=== PATIENT | female | born 1955 | race Caucasian/White ===

== ENCOUNTER 2016-08-04 05:45 | Day surgery (SDC) | payer BC ==
[2016-08-04] MEDS ORDERED: ceFAZolin 2 GM in Premix Bag 1 BAG IV ONE (06:15)
[2016-08-04] MEDS ORDERED: Dextrose 5%-Lactated Ringers 1,000 ML IV SCH (06:15)
[2016-08-04] MEDS ORDERED: Lidocaine 1% with EPINEPHrine 1:100,000 50 ML MDV ONE (06:42)
[2016-08-04] MEDS ORDERED: Bupivacaine 0.5% 50 ML MDV ONE (06:42)
[2016-08-04] MEDS ORDERED: Midazolam 1 MG/ML 2 ML SDV ONE (06:53)
[2016-08-04] MEDS ORDERED: fentaNYL 100 MCG/2 ML SDV ONE (06:53)
[2016-08-04] MEDS ORDERED: Propofol 200 MG/20 ML SDV ONE (06:53)
[2016-08-04] MEDS ORDERED: Bacitracin Oint 1 GM U/D Packet ONE (07:25)
[2016-08-04 09:51] VITALS: BP 169/84
--- NOTE | 2016-08-06 09:03 | OR ---
DATE OF PROCEDURE: 08/04/2016 PREOPERATIVE DIAGNOSIS: Atypical nevi involving right side of the nose and left buttock. POSTOPERATIVE DIAGNOSIS: Atypical nevi involving right side of the nose and left buttock. OPERATIVE PROCEDURE: 1. Excision of atypical nevus, right cheek with layered closure ([id number], [id number]). 2. Excision of atypical nevus, left buttock with layered closure ( , [id number]). ANESTHESIA: Local plus IV sedation. INDICATIONS FOR PROCEDURE: This 61-year-old female presenting with some atypical nevi involving the right cheek just lateral to the nose along with over the midportion of the left buttock. The plan is to proceed with excision of these. Potential risks of the procedure including bleeding, infection, possible need for additional excision of pathologic findings such as a melanoma was identified were all reviewed, and the patient wishes to proceed. DETAILS OF PROCEDURE: The patient was taken to the operating room and placed initially in a right lateral decubitus position. IV sedation was administered, after which, the area around the left buttock was prepped and draped. A transversely oriented elliptical incision around the lesion was made. The lesion itself measured 2.2 cm and incision length was 4.3 cm. The lesion was removed with some underlying subcutaneous tissue and the incision then closed with some 5-0 Vicryl stitch deep and then 5-0 Prolene skin stitch. Dressing was then applied. The patient now placed into a supine position and the right cheek area was prepped and draped. A transversely oriented elliptical incision in Ralph lines was then made after the area was anesthetized with 1% lidocaine mixed with Marcaine. This lesion measured 1.1 cm and the incision length was 2.2 cm. Upon removal of the lesion, the deeper soft tissue approximated with some 6-0 Vicryl stitch and the skin with 6-0 Prolene stitch. Bacitracin was applied. There were no other complications. The patient was then to the recovery room in satisfactory condition. gJ Farris MD /[id number]
== END 2016-08-04 09:52 | disposition home or self-care (01) ==
LOC: JP.SDS 05:45
PROVIDERS: ATTEND Surgery
DX: D22.5 Melanocytic nevi of trunk (principal); D36.7 Benign neoplasm of other specified sites
CPT/HCPCS: 11403; 11442; 12032; 12051; J0690; J2250; J2704; J3010; J7042; 88305

== ENCOUNTER 2017-11-21 09:40 | Day surgery (SDC) | payer BC ==
[2017-11-21] MEDS ORDERED: Lactated Ringers 1,000 ML IV SCH (10:45)
[2017-11-21] MEDS ORDERED: Propofol 200 MG/20 ML SDV ONE ×2 (11:36→12:12)
[2017-11-21] MEDS ORDERED: fentaNYL 100 MCG/2 ML SDV ONE (11:36)
[2017-11-21] MEDS ORDERED: Midazolam 1 MG/ML 2 ML SDV ONE (11:36)
[2017-11-21] MEDS ORDERED: Ondansetron 4 MG/2 ML SDV IVPUSH ONE (12:46)
--- NOTE | 2017-11-21 13:48 | OR ---
DATE OF PROCEDURE: 11/21/2017 PREOPERATIVE DIAGNOSIS: Microcytic anemia. POSTOPERATIVE DIAGNOSES: 1. Microcytic anemia. 2. Esophageal varices. 3. Antral inflammation. 4. Colonic diverticulosis. 5. Hemorrhoids. PROCEDURES PERFORMED: 1. Esophagogastroduodenoscopy with antral biopsies for CLOtest and for pathology to look for Helicobacter pylori. 2. Colonoscopy to the cecum. SURGEON: Hiren Fine MD. ANESTHESIA: IV anesthesia with monitored anesthesia care. INDICATION: This 62-year-old white female is referred for upper and lower endoscopies because of microcytic anemia. She was recently found to have non-alcoholic steatohepatitis. A few weeks ago, she underwent removal of 7,900 mL of ascitic fluid. She is referred for upper and lower endoscopies because of the anemia. I counseled her for the procedures including risks and alternatives, and she gave her informed consent to proceed. DESCRIPTION OF PROCEDURE: The patient was placed in the left lateral decubitus position. IV anesthesia was administered by the Anesthesia Service. Time-out was held. The flexible video Olympus upper endoscope was passed through her mouth, down her esophagus, and into her stomach. The scope was easily passed through the pylorus, into the duodenum reaching its third portion. The scope was then slowly withdrawn, examining the mucosa throughout. The duodenal mucosa appeared unremarkable. The scope was brought up through the pylorus and into the antrum. The antrum was markedly abnormal with very intense erythema. No obvious ulcer was seen. We obtained biopsies of the antrum for CLOtest and for pathology to look for Helicobacter pylori. The scope was retroflexed. The most proximal stomach appeared unremarkable. The scope was straightened. There was little irritation going proximally up into the stomach from the antrum. The scope was then brought up to the GE junction. The Z- line appeared straight. She appeared to have esophageal varices. The scope was then brought proximally up through the remainder of the esophagus, which otherwise appeared unremarkable and it was removed. Next, a rectal exam was performed, which was unremarkable. The flexible video Olympus colonoscope was introduced through her anus, up her rectum and out her colon, all the way to the cecum. Once the cecum was reached, the scope was slowly withdrawn, examining the mucosa throughout. No mucosal abnormalities were noted until we reached the left colon. Here we saw, as well as in the sigmoid colon, a few scattered diverticula. There was no bleeding nor inflammation associated with them. The scope was brought back in the rectum, where it was retroflexed, and fairly prominent internal hemorrhoids were seen. The scope was straightened and removed. She tolerated the procedure well. Hiren Fine MD /[id number] MTDD
[2017-11-21 14:04] VITALS: BP 154/79
== END 2017-11-21 14:30 | disposition home or self-care (01) ==
LOC: JP.SDS 09:40
PROVIDERS: ATTEND Surgery
DX: D50.9 Iron deficiency anemia, unspecified (principal); K29.50 Unspecified chronic gastritis without bleeding; K74.60 Unspecified cirrhosis of liver; I85.10 Secondary esophageal varices without bleeding; K75.81 Nonalcoholic steatohepatitis (NASH); K57.30 Diverticulosis of large intestine without perforation or abscess without bleeding; K64.8 Other hemorrhoids; I10 Essential (primary) hypertension; E66.01 Morbid (severe) obesity due to excess calories; Z68.41 Body mass index [BMI] 40.0-44.9, adult; F32.9 Major depressive disorder, single episode, unspecified; Z88.0 Allergy status to penicillin
CPT/HCPCS: 43239; 45378; 87081; J2250; J2405; J2704; J3010; J7120

== ENCOUNTER 2018-06-05 11:26 | Emergency (ER) | payer MEDICARE, BC ==
[2018-06-05 11:40] VITALS: BP 178/86
--- NOTE | 2018-06-05 12:41 | EDM.PDOC ---
<Jalyn Ma - Last Filed: 06/05/18 14:51> ED HPI GENERAL MEDICAL PROBLEM - General Chief Complaint: General Stated Complaint: CONFUSION Time Seen by Provider: 06/05/18 12:10 Source of Information: Reports: Patient, Other (and sister) History Limitations: Reports: No Limitations - History of Present Illness INITIAL COMMENTS - FREE TEXT/NARRATIVE: Lilian Keller is a 63 year old female who reports to the E.D. accompanied by her sister with concerns of increased dizziness and confusion. Past medical history is significant for autoimmune liver cirrhosis and ascites. One week ago she had a Transjugular Intrahepatic Portosystemic Shunt placed. Since the surgery she notes her ascites has decreased but her dizziness has increased over the past couple of days and significantly today. She notes increased confusion, since the surgery as she has lost her glasses, phone and car keys. Her sister notes when she picked her up to go to the clinic, her she was confused and did not know her right from her left when driving. She also was not properly groomed, which her sister states she is always well put together. They had called the clinic and was then sent over to the E.D. She also states diarrhea, which is a yellow, prabha color. Diarrhea has been persistent since her diagnosis, but she notes it has been worse since the surgical procedure. The last 6 days she has also had drainage from her navel. Activity tolerance has also been limited. She has had a cough for the past couple of months and notes wheezing. She denies fever, chest pain, and headache. Further symptoms are denied at this time. denies Pain Score (Numeric/FACES): 0 - Related Data Allergies Allergy/AdvReac Type Severity Reaction Status Date / Time Penicillins Allergy Cannot Verified 06/05/18 11:39 Remember Home Meds: Home Meds Albuterol Sulfate [Proair Hfa] 2 puff INH Q6HR PRN 11/01/17 [History] Pantoprazole Sodium [Protonix] 40 mg PO DAILY 11/01/17 [History] Folic Acid 1 mg PO DAILY 04/08/18 [History] Furosemide [Lasix] 40 mg PO DAILY 04/08/18 [History] Potassium Chloride [Klor-Con M20] 20 meq PO DAILY 04/08/18 [History] Sertraline [Zoloft] 100 mg PO DAILY 04/08/18 [History] Spironolactone [Aldactone] 50 mg PO DAILY 04/08/18 [History] Sucralfate [Carafate] 1 gm PO QID 04/08/18 [History] Thiamine [Vitamin B-1] 100 mg PO DAILY 04/08/18 [History] metFORMIN [Glucophage] 500 mg PO DAILY 04/08/18 [History] Benzonatate [Tessalon Perle] 100 mg PO TID PRN 05/09/18 [History] Propranolol [Inderal] 20 mg PO TID 05/09/18 [History] Ferrous Sulfate 325 mg PO DAILY 06/05/18 [History] Lactulose 10 gm PO TID 30 Days #30 ml 06/05/18 [Rx] Past Medical History HEENT History: Reports: Impaired Vision Other HEENT History: wears glasses Cardiovascular History: Reports: Hypertension Gastrointestinal History: Reports: Diverticulosis, Hemorrhoids, Other (See Below ) Other Gastrointestinal History: liver cirrhosis with ascitis FAC ENGINEER History: 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: Musculoskeletal History: Reports: Back Pain, Chronic Psychiatric History: Reports: Dementia Endocrine/Metabolic History: Reports: Diabetes, Type II, Obesity/BMI 30+ Hematologic History: Reports: Iron Deficiency Immunologic History: Reports: Other (See Below) Other Immunologic History: autoimmune hepatitis Dermatologic History: Reports: None - Infectious Disease History Infectious Disease History: Reports: Chicken Pox, Measles, Mumps - Past Surgical History HEENT Surgical History: Reports: None Cardiovascular Surgical History: Reports: None GI Surgical History: Reports: Cholecystectomy, Colonoscopy Endocrine Surgical History: Reports: None Musculoskeletal Surgical History: Reports: None Dermatological Surgical History: Reports: Skin Biopsy Social & Family History - Family History HEENT: Reports: Cataract, Impaired Vision Cardiac: Reports: Heart Failure, Hypertension, [place] Respiratory: Reports: Asthma, COPD, Sleep Apnea GI: Reports: Cirrhosis OBGYN: Reports: Musculoskeletal: Reports: Gout, Osteoarthritis Neurological: Reports: Alzheimers Disease, CVA Psychiatric: Reports: Anxiety, Bipolar, Depression Endocrine/Metabolic: Reports: Diabetes, type II Oncologic: Reports: Brain, Breast, Colon, Lung, Prostate - Tobacco Use Smoking Status *Q: Never Smoker Second Hand Smoke Exposure: No - Caffeine Use Caffeine Use: Reports: Coffee, Tea - Recreational Drug Use Recreational Drug Use: No ED ROS GENERAL - Review of Systems Review Of Systems: See Below Constitutional: Reports: Weakness, Fatigue. Denies: Fever, Chills, Night Sweats HEENT: Reports: No Symptoms Respiratory: Reports: Shortness of Breath, Wheezing, Cough Cardiovascular: Reports: Dyspnea on Exertion, Edema. Denies: Chest Pain, Syncope GI/Abdominal: Reports: Diarrhea, Decreased Appetite : Reports: No Symptoms Skin: Reports: Other (drainage from her naval) Neurological: Reports: Confusion, Dizziness, Weakness. Denies: Numbness, Syncope, Tingling Psychiatric: Reports: Confusion Hematologic/Lymphatic: Reports: Easy Bruising ED EXAM, GENERAL - Physical Exam Exam: See Below Exam Limited By: No Limitations General Appearance: Alert, WD/WN, No Apparent Distress Ears: Normal External Exam, Normal Canal, Hearing Grossly Normal, Normal TMs Nose: Other (dried epistaxis of left nare) Throat/Mouth: Normal Inspection, Normal Lips, Normal Teeth, Normal Gums, Normal Oropharynx, Normal Voice Head: Atraumatic, Normocephalic Neck: Normal Inspection, Supple, Non-Tender Respiratory/Chest: No Respiratory Distress, No Accessory Muscle Use, Wheezing. No: Crackles, Rales, Rhonchi Cardiovascular: No JVD, Tachycardia Peripheral Pulses: 0: Dorsalis Pedis (L), Dorsalis Pedis (R) GI/Abdominal: Distended, Hepatomegaly. No: Guarding, Rebound, Tender Extremities: Other (Bilateral +2 pitting edema present, venous stasis present) Neurological: Alert, Oriented Psychiatric: Normal Affect, Normal Mood Skin Exam: Warm, Normal Color, Other (Serous, bloody drainage from navel ) Course - Vital Signs Last Recorded V/S: Last Vital Signs Temp 97.6 F 06/05/18 11:51 Pulse 109 H 06/05/18 11:51 Resp 18 06/05/18 11:51 BP 178/86 H 06/05/18 11:51 Pulse Ox 100 06/05/18 11:51 - Orders/Labs/Meds Labs: Laboratory Tests 06/05/18 06/05/18 06/05/18 Range/Units 13:01 13:01 13:01 WBC 5.6 (4.5-11.0) K/uL RBC 3.27 L (3.30-5.50) M/uL Hgb 9.5 L (12.0-15.0) g/dL Hct 30.6 L (36.0-48.0) % MCV 94 (80-98) fL MCH 29 (27-31) pg MCHC 31 L (32-36) % Plt Count 131 L (150-400) K/uL Neut % (Auto) 68 H (36-66) % Lymph % (Auto) 18 L (24-44) % Tarrant % (Auto) 11 H (2-6) % Eos % (Auto) 3 (2-4) % Baso % (Auto) 1 (0-1) % PT 13.8 H (9.5-12.0) sec INR 1.27 H (0.80-1.20) Sodium 140 (140-148) mmol/L Potassium 4.1 (3.6-5.2) mmol/L Chloride 108 (100-108) mmol/L Carbon Dioxide 24 (21-32) mmol/L Anion Gap 8.4 (5.0-14.0) mmol/L BUN 32 H (7-18) mg/dL Creatinine 1.6 H (0.6-1.0) mg/dL Est Cr Clr Drug Dosing 29.00 mL/min Estimated GFR (MDRD) 32 L (>60) Glucose 119 H (74-106) mg/dL Calcium 8.4 L (8.5-10.1) mg/dL Total Bilirubin 1.0 (0.2-1.0) mg/dL AST 54 H (15-37) U/L ALT 48 (12-78) U/L Alkaline Phosphatase 267 H (46-116) U/L Ammonia (11-32) mmol/L Total Protein 7.5 (6.4-8.2) g/dL Albumin 2.0 L (3.4-5.0) g/dL Globulin 5.5 H (2.3-3.5) g/dL Albumin/Globulin Ratio 0.4 L (1.2-2.2) 06/05/18 Range/Units 13:01 WBC (4.5-11.0) K/uL RBC (3.30-5.50) M/uL Hgb (12.0-15.0) g/dL Hct (36.0-48.0) % MCV (80-98) fL MCH (27-31) pg MCHC (32-36) % Plt Count (150-400) K/uL Neut % (Auto) (36-66) % Lymph % (Auto) (24-44) % Tarrant % (Auto) (2-6) % Eos % (Auto) (2-4) % Baso % (Auto) (0-1) % PT (9.5-12.0) sec INR (0.80-1.20) Sodium (140-148) mmol/L Potassium (3.6-5.2) mmol/L Chloride (100-108) mmol/L Carbon Dioxide (21-32) mmol/L Anion Gap (5.0-14.0) mmol/L BUN (7-18) mg/dL Creatinine (0.6-1.0) mg/dL Est Cr Clr Drug Dosing mL/min Estimated GFR (MDRD) (>60) Glucose (74-106) mg/dL Calcium (8.5-10.1) mg/dL Total Bilirubin (0.2-1.0) mg/dL AST (15-37) U/L ALT (12-78) U/L Alkaline Phosphatase (46-116) U/L Ammonia 61 H (11-32) mmol/L Total Protein (6.4-8.2) g/dL Albumin (3.4-5.0) g/dL Globulin (2.3-3.5) g/dL Albumin/Globulin Ratio (1.2-2.2) Meds: Medications Discontinued Medications Generic Name Dose Route Start Last Admin Trade Name Neilq PRN Reason Stop Dose Admin Lactulose 30 gm 06/05/18 13:37 06/05/18 14:01 Chronulac PO 06/05/18 13:38 30 gm ONETIME ONE Administration Lactulose 10 gm 06/05/18 13:39 06/05/18 14:01 Chronulac PO 06/05/18 13:40 10 gm ONETIME ONE Administration Lactulose 200 gm 06/05/18 14:00 06/05/18 14:04 Chronulac RECTAL 06/05/18 14:01 200 gm ONETIME ONE Administration Departure - Departure Disposition: Home, Self-Care 01 Clinical Impression: Hepatic encephalopathy - Discharge Information Prescriptions: Lactulose 10 gm PO TID 30 Days #30 ml Referrals: Yue Candelaria PA [Primary Care Provider] - Forms: ED Department Discharge Additional Instructions: Start the lactulose when you get home, he will take this medication 3 times a day like you to follow-up with your primary care in the next 3-5 days for reevaluation, call return to the emergency department with worsening of symptoms <OfficerMauricio - Last Filed: 06/05/18 14:52> ED EXAM, GENERAL - Physical Exam Free Text/Narrative:: Agree with below Course - Orders/Labs/Meds Labs: Laboratory Tests 06/05/18 06/05/18 06/05/18 Range/Units 13:01 13:01 13:01 WBC 5.6 (4.5-11.0) K/uL RBC 3.27 L (3.30-5.50) M/uL Hgb 9.5 L (12.0-15.0) g/dL Hct 30.6 L (36.0-48.0) % MCV 94 (80-98) fL MCH 29 (27-31) pg MCHC 31 L (32-36) % Plt Count 131 L (150-400) K/uL Neut % (Auto) 68 H (36-66) % Lymph % (Auto) 18 L (24-44) % Tarrant % (Auto) 11 H (2-6) % Eos % (Auto) 3 (2-4) % Baso % (Auto) 1 (0-1) % PT 13.8 H (9.5-12.0) sec INR 1.27 H (0.80-1.20) Sodium 140 (140-148) mmol/L Potassium 4.1 (3.6-5.2) mmol/L Chloride 108 (100-108) mmol/L Carbon Dioxide 24 (21-32) mmol/L Anion Gap 8.4 (5.0-14.0) mmol/L BUN 32 H (7-18) mg/dL Creatinine 1.6 H (0.6-1.0) mg/dL Est Cr Clr Drug Dosing 29.00 mL/min Estimated GFR (MDRD) 32 L (>60) Glucose 119 H (74-106) mg/dL Calcium 8.4 L (8.5-10.1) mg/dL Total Bilirubin 1.0 (0.2-1.0) mg/dL AST 54 H (15-37) U/L ALT 48 (12-78) U/L Alkaline Phosphatase 267 H (46-116) U/L Ammonia (11-32) mmol/L Total Protein 7.5 (6.4-8.2) g/dL Albumin 2.0 L (3.4-5.0) g/dL Globulin 5.5 H (2.3-3.5) g/dL Albumin/Globulin Ratio 0.4 L (1.2-2.2) 06/05/18 Range/Units 13:01 WBC (4.5-11.0) K/uL RBC (3.30-5.50) M/uL Hgb (12.0-15.0) g/dL Hct (36.0-48.0) % MCV (80-98) fL MCH (27-31) pg MCHC (32-36) % Plt Count (150-400) K/uL Neut % (Auto) (36-66) % Lymph % (Auto) (24-44) % Tarrant % (Auto) (2-6) % Eos % (Auto) (2-4) % Baso % (Auto) (0-1) % PT (9.5-12.0) sec INR (0.80-1.20) Sodium (140-148) mmol/L Potassium (3.6-5.2) mmol/L Chloride (100-108) mmol/L Carbon Dioxide (21-32) mmol/L Anion Gap (5.0-14.0) mmol/L BUN (7-18) mg/dL Creatinine (0.6-1.0) mg/dL Est Cr Clr Drug Dosing mL/min Estimated GFR (MDRD) (>60) Glucose (74-106) mg/dL Calcium (8.5-10.1) mg/dL Total Bilirubin (0.2-1.0) mg/dL AST (15-37) U/L ALT (12-78) U/L Alkaline Phosphatase (46-116) U/L Ammonia 61 H (11-32) mmol/L Total Protein (6.4-8.2) g/dL Albumin (3.4-5.0) g/dL Globulin (2.3-3.5) g/dL Albumin/Globulin Ratio (1.2-2.2) Meds: Medications Discontinued Medications Generic Name Dose Route Start Last Admin Trade Name Freq PRN Reason Stop Dose Admin Lactulose 30 gm 06/05/18 13:37 06/05/18 14:01 Chronulac PO 06/05/18 13:38 30 gm ONETIME ONE Administration Lactulose 10 gm 06/05/18 13:39 06/05/18 14:01 Chronulac PO 06/05/18 13:40 10 gm ONETIME ONE Administration Lactulose 200 gm 06/05/18 14:00 06/05/18 14:04 Chronulac RECTAL 06/05/18 14:01 200 gm ONETIME ONE Administration Departure - Departure Time of Disposition: 14:50 Condition: Poor - Assessment/Plan Plan: Assessment Acuity = acute Site and laterality = hepatic encephalopathy complicated patient with known history of autoimmune hepatitis following a TIPS procedure one week ago Etiology = complications of liver cirrhosis Manifestations = confusion memory problems Location of injury = Home Lab values = hemoglobin low at 9.5 consistent normochromic anemia INR slightly elevated 1.27 creatinine elevated 1.6 consistent chronic renal failure stage G IIIB ammonia elevated 61 consistent with hyperammoniaemia albumin low at 2.0 consistent hypoalbumineia aalkaline phosphatase is markedly elevated 267 Plan Discussed the possibility hospital admission she declined at this time would like to try outpatient treatment therefore prescription was faxed to [facility] lactulose 15 mL or 10 mg by mouth 3 times a day her follow-up with her primary care in the next 3-5 days for reevaluation Mauricio Perkins MD was personally available for consultation in the ED. I have reviewed the chart and agree with the documentation as recorded by the ROBB Student, including the assessment, treatment plan and disposition. Mauricio Perkins MD personally saw and examined the patient. I have reviewed and agree with the PA Student's findings. This note was dictated using [employer] voice recognition software please call with any questions on syntax or grammar.
[2018-06-05] MEDS ORDERED: Lactulose Soln 10 GM/15 ML 15 ML UD Cup PO ONE ×2 (13:37→13:39)
[2018-06-05] MEDS ORDERED: Lactulose Soln 10 GM/15 ML ML 473 ML Bottle RECTAL ONE (14:00)
== END 2018-06-05 15:05 | disposition home or self-care (01) ==
LOC: JP.ED 11:26
DX: K72.90 Hepatic failure, unspecified without coma (principal); I10 Essential (primary) hypertension; E11.9 Type 2 diabetes mellitus without complications; Z79.899 Other long term (current) drug therapy; Z79.84 Long term (current) use of oral hypoglycemic drugs; Z88.0 Allergy status to penicillin
CPT/HCPCS: 36415; 80053; 82140; 85025; 85610; 99284; A9270

== ENCOUNTER 2018-06-12 13:17 | Observation (INO) | payer MEDICARE, BC ==
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
[2018-06-12] MEDS ORDERED: Sodium Chloride 0.9% 10 ML Syringe FLUSH PRN (16:28)
[2018-06-12] MEDS ORDERED: cefTRIAXone 1 GM, Lidocaine 1% 2.1 ML IM ONE ×2 (16:28)
--- NOTE | 2018-06-12 17:16 | PCM.HP ---
H&P History of Present Illness - General Date of Service: 06/12/18 Admit Problem/Dx: Admission Diagnosis/Problem Admission Diagnosis/Problem Acute cystitis Source of Information: Patient, Family History Limitations: Reports: No Limitations - History of Present Illness Initial Comments - Free Text/Narative: Lilian presents to the emergency room today with weakness and confusion. Symptoms have been present for more than a week but do not seem to be getting better after lactulose was started one week ago. This morning she was very somnolent and slept through her alarm for quite some time before she woke up. She was very weak and had trouble getting out of bed. Symptoms have improved slightly throughout the day but she is still quite weak beyond her baseline. She has not noticed any fevers. She does not have any abdominal pain. She has not had any nausea or vomiting. Appetite is been up and down. She has not noticed dysuria or urinary urgency. She does report urinary frequency but this is chronic and unchanged. She has had multiple loose to watery stools per day because after starting the lactulose one week ago. Workup in the emergency room revealed an ammonia level of 49 which is improved from one week ago. Urine strongly suggestive of infection. Lactic acid is normal. She'll be admitted for management of urinary tract infection with weakness and ongoing hepatic encephalopathy. - Related Data Allergies/Adverse Reactions: Allergies Allergy/AdvReac Type Severity Reaction Status Date / Time Penicillins Allergy Cannot Verified 06/12/18 13:41 Remember Home Medications: Home Meds Albuterol Sulfate [Proair Hfa] 2 puff INH Q6HR PRN 11/01/17 [History] Pantoprazole Sodium [Protonix] 40 mg PO DAILY 11/01/17 [History] Folic Acid 1 mg PO DAILY 04/08/18 [History] Furosemide [Lasix] 40 mg PO DAILY 04/08/18 [History] Potassium Chloride [Klor-Con M20] 20 meq PO DAILY 04/08/18 [History] Sertraline [Zoloft] 100 mg PO DAILY 04/08/18 [History] Spironolactone [Aldactone] 50 mg PO DAILY 04/08/18 [History] Sucralfate [Carafate] 1 gm PO QID 04/08/18 [History] Thiamine [Vitamin B-1] 100 mg PO DAILY 04/08/18 [History] metFORMIN [Glucophage] 500 mg PO DAILY 04/08/18 [History] Benzonatate [Tessalon Perle] 100 mg PO TID PRN 05/09/18 [History] Ferrous Sulfate 325 mg PO DAILY 06/05/18 [History] Lactulose 10 gm PO TID 30 Days #30 ml 06/05/18 [Rx] Past Medical History HEENT History: Reports: Impaired Vision Other HEENT History: wears glasses Cardiovascular History: Reports: Hypertension Gastrointestinal History: Reports: Cirrhosis, Diverticulosis, Hemorrhoids, Hepatitis, Other (See Below) Other Gastrointestinal History: liver cirrhosis with ascitis. 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: Musculoskeletal History: Reports: Back Pain, Chronic Psychiatric History: Reports: Depression Endocrine/Metabolic History: Reports: Diabetes, Type II, Obesity/BMI 30+ Hematologic History: Reports: Anemia, Iron Deficiency Immunologic History: Reports: Other (See Below) Other Immunologic History: autoimmune hepatitis Dermatologic History: Reports: None - Infectious Disease History Infectious Disease History: Reports: Chicken Pox, Measles, Mumps - Past Surgical History HEENT Surgical History: Reports: None Cardiovascular Surgical History: Reports: None GI Surgical History: Reports: Cholecystectomy, Colonoscopy, Other (See Below) Other GI Surgeries/Procedures: polyp Endocrine Surgical History: Reports: None Musculoskeletal Surgical History: Reports: None Dermatological Surgical History: Reports: Skin Biopsy Social & Family History - Family History HEENT: Reports: Cataract, Impaired Vision Cardiac: Reports: Heart Failure, Hypertension, [place] Respiratory: Reports: Asthma, COPD, Sleep Apnea GI: Reports: Cirrhosis OBGYN: Reports: Musculoskeletal: Reports: Gout, Osteoarthritis Neurological: Reports: Alzheimers Disease, CVA Psychiatric: Reports: Anxiety, Bipolar, Depression Endocrine/Metabolic: Reports: Diabetes, type II Oncologic: Reports: Brain, Breast, Colon, Lung, Prostate - Tobacco Use Smoking Status *Q: Never Smoker - Caffeine Use Caffeine Use: Reports: Tea - Alcohol Use Alcohol Use History: No - Recreational Drug Use Recreational Drug Use: No H&P Review of Systems - Review of Systems: Review Of Systems: See Below Free Text/Narrative: A complete 12 point review of systems was obtained. Pertinent positives and negatives are noted in the history of present illness. All other systems were reviewed and were negative except as noted. Exam - Exam Exam: See Below - Vital Signs Vital Signs: Last Vital Signs Temp 36.1 C 06/12/18 16:42 Pulse 79 06/12/18 16:42 Resp 16 06/12/18 16:42 BP 148/59 H 06/12/18 16:42 Pulse Ox 100 06/12/18 16:42 Weight: 102.512 kg - Exam Quality Assessment: No: Supplemental Oxygen General: Alert, Oriented, Cooperative. No: Mild Distress HEENT: Conjunctiva Clear. No: Mucosa Moist & [place] (dry), Scleral Icterus Neck: Supple. No: Lymphadenopathy Lungs: Clear to Auscultation, Normal Respiratory Effort Cardiovascular: Regular Rate, Regular Rhythm, Systolic Murmur GI/Abdominal Exam: Normal Bowel Sounds, Soft, No Distention, Other (no bleeding from umbilicus ). No: Tender Extremities: Pedal Edema, Increased Warmth Skin: Warm, Dry. No: Rash Neuro Extensive - Mental Status: Alert, Oriented x3, Nl Response to Commands Neuro Extensive - Motor, Sensory, Reflexes: No: Dysarthria, Abnormal Motor, Tremor Psychiatric: Alert, Normal Affect - Patient Data Lab Results Last 24 hrs: Laboratory Results - last 24 hr 06/12/18 06/12/18 06/12/18 Range/Units 14:30 14:30 15:46 PT 13.3 H (9.5-12.0) sec INR 1.22 H (0.80-1.20) Ammonia 49 H (11-32) mmol/L Urine Color [place] Urine Appearance Cloudy Urine pH 5.0 (4.5-8.0) Ur Specific [place] 1.015 (1.008-1.030) Urine Protein Trace (NEGATIVE) mg/dL Urine Glucose (UA) Normal (NEGATIVE) mg/dL Urine Ketones 15 H (NEGATIVE) mg/dL Urine Occult Blood Negative (NEGATIVE) Urine Nitrite Positive H (NEGATIVE) Urine Bilirubin Small (NEGATIVE) Urine Urobilinogen 1 (NORMAL) mg/dL Ur Leukocyte Esterase Moderate (NEGATIVE) Urine RBC 0-5 (0-5) Urine WBC Semi-packed H (0-5) Ur Epithelial Cells Moderate Amorphous Sediment Few Urine Bacteria Many Urine Mucus Few *Q Meaningful Use (ADM) - VTE *Q VTE Mechanical Contraindications *Q: Bilateral Lower Edema - VTE Risk Assess *Q Each Risk Factor Represents 1 Point: Swollen Legs, Current, Obesity ( BMI > 25 kg/m2) Total Score 1 Point Risk Factors: 2 Each Risk Factor Represents 2 Points: Age 60 - 74 Years Total Score 2 Point Risk Factors: 2 Each Risk Factor Represents 3 Points: None Total Score 3 Point Risk Factors: 0 Each Risk Factor Represents 5 Points: None Total Score 5 Point Risk Factors: 0 Venous Thromboembolism Risk Factor Score *Q: 4 - Problem List (1) Urinary tract infection SNOMED Code(s): 57071930 ICD Code: N39.0 - URINARY TRACT INFECTION, SITE NOT SPECIFIED Status: Acute Current Visit: Yes Qualifiers: Urinary tract infection type: acute cystitis Hematuria presence: without hematuria Qualified Code(s): N30.00 - Acute cystitis without hematuria (2) Weakness SNOMED Code(s): 24891730 ICD Code: R53.1 - WEAKNESS Status: Acute Current Visit: Yes (3) Hepatic encephalopathy SNOMED Code(s): 13229975 ICD Code: K72.90 - HEPATIC FAILURE, UNSPECIFIED WITHOUT COMA Status: Chronic Current Visit: Yes (4) Cirrhosis of liver with ascites SNOMED Code(s): 48003020 ICD Code: K74.60 - UNSPECIFIED CIRRHOSIS OF LIVER; R18.8 - OTHER ASCITES Status: Chronic Priority: High Current Visit: Yes Qualifiers: Hepatic cirrhosis type: unspecified hepatic cirrhosis Qualified Code(s): K74.60 - Unspecified cirrhosis of liver; R18.8 - Other ascites (5) Diabetes mellitus type II, controlled SNOMED Code(s): 00245044, 672646984 ICD Code: E11.9 - TYPE 2 DIABETES MELLITUS WITHOUT COMPLICATIONS Status: Chronic Current Visit: No Qualifiers: Diabetes 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 DIRECTED Care 06/12/18 16:28 Active CULTURE BLOOD [BC] Urgent Lab 06/12/18 16:30 Received CULTURE BLOOD [BC] Urgent Lab 06/12/18 16:40 Received CULTURE URINE [RM] Urgent Lab 06/12/18 16:45 Received LACTIC ACID [CHEM] Stat Lab 06/12/18 16:27 Ordered Sodium Chloride 0.9% [Normal Saline] 1,000 ml Med 06/12/18 16:30 Active IV ASDIRECTED Sodium Chloride 0.9% [Saline Flush] Med 06/12/18 16:28 Active 10 ml FLUSH ASDIRECTED PRN Blood Culture x2 Reflex Set [OM.PC] Urgent Oth 06/12/18 16:27 Ordered Peripheral IV Insertion Adult [OM.PC] Urgent Oth 06/12/18 16:27 Ordered Resuscitation Status Routine Resus Stat 06/12/18 17:08 Ordered Medication Orders Sodium Chloride (Normal Saline) 1,000 mls @ 125 mls/hr IV ASDIRECTED BETO Sodium Chloride (Saline Flush) 10 ml FLUSH ASDIRECTED PRN PRN Reason: Keep Vein Open Assessment/Plan Comment:: ASSESSMENT AND PLAN - Acute cystitis without hematuria - most likely cause for weakness and increased confusion though likely contribution from hepatic encephalopathy as discussed below. There is no evidence for sepsis at this time and vital signs are stable. She is weak and would benefit from observation rather than outpatient management. -Continue ceftriaxone -Urine culture -Follow-up blood cultures -Gentle fluids overnight -Physical therapy in the morning Autoimmune hepatitis - complicated by cirrhosis with ascites as well as hepatic encephalopathy. She did have a recent TIPS procedure and has not had significant difficulty with ascites since that time. Ammonia level still elevated but lower than one week ago. -Continue diuretics starting in the morning -Continue lactulose -Recheck ammonia level in the morning Type 2 diabetes mellitus - on only a single oral agent at this time. -Continue metformin Maintenance issues - - DVT prophylaxis - patient will be ambulatory tomorrow - GI prophylaxis - PPI - Nutrition - low sodium - Ernandez catheter - not indicated CODE STATUS - full code Admission justification - patient will be referred observation status for initiation of antibiotics and physical therapy for strengthening Disposition - I would anticipate discharge to home tomorrow Primary care physician - Dr. Jp Ricardo M.D.
[2018-06-12] MEDS ORDERED: cefTRIAXone 500 MG Vial IVPUSH ONE (17:40)
[2018-06-12] MEDS ORDERED: Sodium Chloride 0.9% 50 ML IV STA (17:50)
[2018-06-12] MEDS: Sodium Chloride 0.9% 1,000 ML IV SCH (18:10)
[2018-06-12] MEDS ORDERED: Sodium Chloride 0.9% 50 ML IV SCH (18:20)
[2018-06-12] MEDS ORDERED: Ondansetron 4 MG Tab.DIS PO PRN (18:20)
[2018-06-12] MEDS ORDERED: Non-Formulary Medication 1 Each (Benzonatate [Tessalon Perle] 100 MG) PO PRN (18:20)
[2018-06-12] MEDS ORDERED: Acetaminophen 325 MG Tab PO PRN (18:20)
[2018-06-12] MEDS: LACTULOSE 10 GM PO SCH (21:02)
[2018-06-13] MEDS: Sodium Chloride 0.9% 1,000 ML IV SCH ×2 (01:59→10:57)
[2018-06-13] MEDS ORDERED: cefTRIAXone 1 GM in Sodium Chloride 0.9% 50 ML IV ONE (06:00)
[2018-06-13] MEDS ORDERED: Pneumococcal Polyvalent-23 Vaccine 0.5 ML SDV IM ONE (09:00)
[2018-06-13] MEDS ORDERED: Non-Formulary Medication 1 Each (Ferrous Sulfate [Ferrous Sulfate] 325 MG) PO SCH (09:00)
[2018-06-13] MEDS ORDERED: Non-Formulary Medication 1 Each (Metformin [Glucophage] 500 MG) PO SCH (09:00)
[2018-06-13] MEDS ORDERED: THIAMINE 100 MG PO SCH (09:00)
[2018-06-13] MEDS ORDERED: Non-Formulary Medication 1 Each (Furosemide [Lasix] 40 MG) PO SCH (09:00)
[2018-06-13] MEDS ORDERED: Non-Formulary Medication 1 Each (Sertraline [Zoloft] 100 MG) PO SCH (09:00)
[2018-06-13] MEDS ORDERED: Non-Formulary Medication 1 Each (Spironolactone [Aldactone] 50 MG) PO SCH (09:00)
[2018-06-13] MEDS ORDERED: Non-Formulary Medication 1 Each (Pantoprazole Sodium [Protonix] 40 MG) PO SCH (09:00)
[2018-06-13] MEDS ORDERED: Non-Formulary Medication 1 Each (Folic Acid [Folic Acid] 1 MG) PO SCH (09:00)
[2018-06-13] MEDS ORDERED: Non-Formulary Medication 1 Each (Potassium Chloride [Klor-Con M20] 20 MEQ) PO SCH (09:00)
[2018-06-13] MEDS ORDERED: BENZONATATE 100 MG PO PRN (09:21)
[2018-06-13] MEDS: LACTULOSE 10 GM PO SCH ×3 (09:49→20:52)
[2018-06-13] MEDS: Folic Acid 1 MG Tab (PTOM) PO SCH (09:51)
[2018-06-13] MEDS: Potassium Chloride 20 MEQ Tab.ER (PTOM) PO SCH (09:51)
[2018-06-13] MEDS: SERTRALINE 100 MG PO SCH (09:51)
[2018-06-13] MEDS: THIAMINE 100 MG PO SCH (09:52)
[2018-06-13] MEDS: SPIRONOLACTONE 50 MG PO SCH (09:53)
[2018-06-13] MEDS: Furosemide 20 MG Tab (PTOM) PO SCH (09:53)
[2018-06-13] MEDS: Ferrous Sulfate 325 MG Tab PO SCH (09:54)
[2018-06-13] MEDS: Pantoprazole 40 MG Tab.CR (PTOM) PO SCH (10:59)
--- NOTE | 2018-06-13 16:48 | PCM.PN ---
- General Info Date of Service: 06/13/18 Subjective Update: There were no acute events overnight. She is weak but is able to ambulate with standby assistance and walker. No fevers overnight. Ammonia level has risen to 100 this morning. Urine cultures growing a gram-negative rukhsana. Appetite has been okay. Mild confusion. Functional Status: Reports: Pain Controlled - Review of Systems General: Reports: Weakness - Patient Data Vitals - Most Recent: Last Vital Signs Temp 36.6 C 06/13/18 15:20 Pulse 73 06/13/18 15:20 Resp 18 06/13/18 15:20 BP 132/42 L 06/13/18 15:20 Pulse Ox 100 06/13/18 15:20 Weight - Most Recent: 102.512 kg I&O - Last 24 Hours: Intake & Output 06/13/18 06/13/18 06/13/18 06:59 14:59 22:59 Intake Total 1458 1545 50 Output Total 400 300 Balance 1058 1545 -250 Lab Results Last 24 Hours: Laboratory Results - last 24 hr 06/12/18 06/13/18 06/13/18 Range/Units 16:27 05:20 05:20 Sodium 144 (140-148) mmol/L Potassium 3.7 (3.6-5.2) mmol/L Chloride 112 H (100-108) mmol/L Carbon Dioxide 21 (21-32) mmol/L Anion Gap 14.7 H (5.0-14.0) mmol/L BUN 32 H (7-18) mg/dL Creatinine 1.7 H (0.6-1.0) mg/dL Est Cr Clr Drug Dosing 27.29 mL/min Estimated GFR (MDRD) 30 L (>60) Glucose 117 H (74-106) mg/dL Lactic Acid 2.0 (0.4-2.0) mmol/L Calcium 8.4 L (8.5-10.1) mg/dL Ammonia 100 H (11-32) mmol/L Baljit Results Last 24 Hours: Microbiology 06/12/18 16:40 Aerobic Blood Culture - Preliminary Blood - Arm, Right NO GROWTH AFTER 1 DAY Anaerobic Blood Culture - Preliminary NO GROWTH AFTER 1 DAY 06/12/18 16:30 Aerobic Blood Culture - Preliminary Blood - Arm, Left NO GROWTH AFTER 1 DAY Anaerobic Blood Culture - Preliminary NO GROWTH AFTER 1 DAY 06/12/18 16:45 Urine Culture - Preliminary Urine, Clean Catch Med Orders - Current: Current Medications Acetaminophen (Tylenol) 650 mg PO Q6H PRN PRN Reason: Pain (Mild 1-3)/fever Benzonatate (Tessalon Perles) 100 mg PO TID PRN PRN Reason: COUGH Ferrous Sulfate (Ferrous Sulfate) 325 mg PO DAILY [facility] Last Admin: 06/13/18 09:54 Dose: 325 mg Folic Acid (Folic Acid) 1 mg PO DAILY [facility] Last Admin: 06/13/18 09:51 Dose: 1 mg Furosemide (Lasix) 40 mg PO DAILY [facility] Last Admin: 06/13/18 09:53 Dose: 40 mg Ceftriaxone Sodium 2 gm/ (Sodium Chloride) 50 mls @ 100 mls/hr IV Q24H [facility] Last Admin: 06/13/18 16:10 Dose: 100 mls/hr (Lactulose [ Lactulose] 10 Gm)*Pt Own Med* 10 gm PO TID [facility] Last Admin: 06/13/18 14:42 Dose: 10 gm Ondansetron HCl (Zofran Odt) 4 mg PO Q6H PRN PRN Reason: Nausea able to take PO Pantoprazole Sodium (Protonix) 40 mg PO ACBREAKFAST [facility] Last Admin: 06/13/18 10:59 Dose: 40 mg Sertraline 100mg Tab ((Ptom)) 0 each PO DAILY [facility] Last Admin: 06/13/18 09:51 Dose: 1 each Spironolactone 50mg (Tab (Ptom)) 0 each PO DAILY [facility] Last Admin: 06/13/18 09:53 Dose: 1 each Pneumococcal Polyvalent Vaccine (Pneumovax 23) 0.5 ml IM .ONCE ONE Stop: 06/14/18 10:46 Potassium Chloride (Klor-Con M20) 20 meq PO DAILY [facility] Last Admin: 06/13/18 09:51 Dose: 20 meq Sodium Chloride (Saline Flush) 10 ml FLUSH ASDIRECTED PRN PRN Reason: Keep Vein Open Thiamine HCl (Vitamin B-1) 100 mg PO DAILY [facility] Last Admin: 06/13/18 09:52 Dose: 100 mg Discontinued Medications Ceftriaxone Sodium (Rocephin) 1,000 mg IVPUSH ONETIME ONE Stop: 06/12/18 17:41 Last Admin: 06/12/18 18:10 Dose: 1,000 mg Ceftriaxone Sodium 1 gm/ (Lidocaine HCl 2.1 ml) 0 gm IM ONETIME ONE Stop: 06/12/18 16:29 Last Admin: 06/12/18 20:05 Dose: Not Given Sodium Chloride (Normal Saline) 1,000 mls @ 125 mls/hr IV ASDIRECTED [facility] Last Admin: 06/13/18 10:57 Dose: 125 mls/hr Sodium Chloride (Normal Saline) 50 mls @ 100 mls/hr IV NOW STA Stop: 06/12/18 18:19 Last Admin: 06/12/18 18:11 Dose: 100 mls/hr Ceftriaxone Sodium 1 gm/ (Sodium Chloride) 50 mls @ 100 mls/hr IV ONETIME ONE Stop: 06/13/18 06:29 Last Admin: 06/13/18 05:03 Dose: 100 mls/hr (Sucralfate [ Carafate] 1 Gm)*Pt Own Med* 1 gm PO QIDACANDBED [facility] Last Admin: 06/13/18 11:48 Dose: Not Given Pneumococcal Polyvalent Vaccine (Pneumovax 23) 0.5 ml IM .ONCE ONE Stop: 06/13/18 09:01 Last Admin: 06/13/18 10:43 Dose: Not Given - Exam Quality Assessment: No: Supplemental Oxygen General: Alert, Cooperative, No Acute Distress Lungs: Normal Respiratory Effort GI/Abdominal Exam: Soft, Distended Extremities: Pedal Edema Skin: Warm, Dry Neurological: Other (Asterixis) Psy/Mental Status: Alert, Normal Affect - Problem List & Annotations (1) Urinary tract infection SNOMED Code(s): 70044610 Code(s): N39.0 - URINARY TRACT INFECTION, SITE NOT SPECIFIED Status: Acute Current Visit: Yes Qualifiers: Urinary tract infection type: acute cystitis Hematuria presence: without hematuria Qualified Code(s): N30.00 - Acute cystitis without hematuria (2) Weakness SNOMED Code(s): 63250909 Code(s): R53.1 - WEAKNESS Status: Acute Current Visit: Yes (3) Hepatic encephalopathy SNOMED Code(s): 31406848 Code(s): K72.90 - HEPATIC FAILURE, UNSPECIFIED WITHOUT COMA Status: Chronic Current Visit: Yes (4) Cirrhosis of liver with ascites SNOMED Code(s): 47487137 Code(s): K74.60 - UNSPECIFIED CIRRHOSIS OF LIVER; R18.8 - OTHER ASCITES Status: Chronic Priority: High Current Visit: Yes Qualifiers: Hepatic cirrhosis type: unspecified hepatic cirrhosis Qualified Code(s): K74.60 - Unspecified cirrhosis of liver; R18.8 - Other ascites (5) Diabetes mellitus type II, controlled SNOMED Code(s): 75394978, 648141412 Code(s): E11.9 - TYPE 2 DIABETES MELLITUS WITHOUT COMPLICATIONS Status: Chronic Current Visit: No Qualifiers: Diabetes mellitus senior care insulin use: without watermelon inspector use Diabetes mellitus complication status: without complication Qualified Code(s): E11.9 - Type 2 diabetes mellitus without complications - Problem List Review Problem List Initiated/Reviewed/Updated: Yes - My Orders Last 24 Hours: My Active Orders 06/12/18 17:08 Resuscitation Status Routine 06/12/18 18:20 Patient Status [ADT] Routine Intake and Output [RC] QSHIFT Notify Provider Vital Signs [RC] ASDIRECTED Oxygen Therapy [RC] PRN Up With Assistance [RC] ASDIRECTED VTE/DVT Education [RC] Per Unit Routine Vital Signs [RC] Q4H Acetaminophen [Tylenol] 650 mg PO Q6H PRN Ondansetron [Zofran ODT] 4 mg PO Q6H PRN VTE Mechanical Contraindications [AST] Per Unit Routine 06/12/18 21:00 Lactulose [Lactulose] 10 gm PO TID 06/12/18 Dinner 2 Gram Sodium Diet [DIET] 06/13/18 07:00 PT Evaluation and Treatment [CONS] Routine 06/13/18 09:21 Benzonatate [Tessalon Perles] 100 mg PO TID PRN 06/13/18 09:30 Ferrous Sulfate 325 mg PO DAILY Folic Acid 1 mg PO DAILY Furosemide [Lasix] 40 mg PO DAILY Patient's Own Medication [Ptom] 0 each PO DAILY Patient's Own Medication [Ptom] 0 each PO DAILY Potassium Chloride [Klor-Con M20] 20 meq PO DAILY Thiamine [Vitamin B-1] 100 mg PO DAILY 06/13/18 11:30 Pantoprazole [ProTONIX] 40 mg PO ACBREAKFAST 06/13/18 12:14 Convert IV to Saline Lock [OM.PC] Routine 06/13/18 17:00 cefTRIAXone [Rocephin] 2 gm Sodium Chloride 0.9% [Normal Saline] 50 ml IV Q24H 06/14/18 05:00 AMMONIA VENOUS [CHEM] Timed BASIC METABOLIC PANEL,BMP [CHEM] Timed 06/14/18 10:45 Pneumococcal Polyvalent-23 Vac [Pneumovax 23] 0.5 ml IM .ONCE ONE - Plan Plan:: ASSESSMENT AND PLAN - Acute cystitis without hematuria - most likely cause for weakness and increased confusion. Urine culture with gram-negative rukhsana but identification pending. No fevers and clinically improving. 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 She did have a recent TIPS procedure and has not had significant difficulty with ascites since that time. Ammonia level has risen since yesterday, probably secondary to missing 2 doses of lactulose yesterday. -Continue diuretics -Continue lactulose -Recheck ammonia level in the morning Acute kidney injury - creatinine 1.7 today which is higher than her baseline. Probably related to intravascular volume depletion prior to hospital admission. She has been hydrated overnight. -Recheck labs in the morning Type 2 diabetes mellitus - on only a single oral agent at this time but this will be on hold with her acute on chronic kidney injury. -Hold metformin Maintenance issues - - DVT prophylaxis - patient will be ambulatory - GI prophylaxis - PPI - Nutrition - low sodium Disposition - I would anticipate discharge to home tomorrow Siva Ricardo M.D.
[2018-06-13] MEDS ORDERED: cefTRIAXone 2 GM in Sodium Chloride 0.9% 50 ML IV SCH (17:00)
[2018-06-14 07:14] VITALS: BP 134/48
[2018-06-14] MEDS: Pantoprazole 40 MG Tab.CR (PTOM) PO SCH (09:08)
[2018-06-14] MEDS: SPIRONOLACTONE 50 MG PO SCH (09:10)
[2018-06-14] MEDS: Folic Acid 1 MG Tab (PTOM) PO SCH (09:11)
[2018-06-14] MEDS: Furosemide 20 MG Tab (PTOM) PO SCH (09:12)
[2018-06-14] MEDS: Potassium Chloride 20 MEQ Tab.ER (PTOM) PO SCH (09:12)
[2018-06-14] MEDS: SERTRALINE 100 MG PO SCH (09:14)
[2018-06-14] MEDS: THIAMINE 100 MG PO SCH (09:14)
[2018-06-14] MEDS: LACTULOSE 10 GM PO SCH (09:16)
[2018-06-14] MEDS: Ferrous Sulfate 325 MG Tab PO SCH (09:18)
[2018-06-14] MEDS ORDERED: Potassium Chloride 20 MEQ Tab.ER PO ONE (09:30)
--- NOTE | 2018-06-14 10:14 | PCM.DCSUM1 ---
Discharge Summary - Hospital Course Brief History: 63-year-old female with cirrhosis thought secondary to autoimmune hepatitis complicated by cirrhosis and hepatic encephalopathy as well as type 2 diabetes mellitus who presented with weakness and confusion. She was admitted for management of urinary tract infection and hepatic encephalopathy. Diagnosis: Stroke: No - Discharge Data Discharge Date: 06/14/18 Discharge Disposition: Home, [facility] 06 Condition: Good - Discharge Diagnosis/Problem(s) (1) Urinary tract infection SNOMED Code(s): 96976600 ICD Code: N39.0 - URINARY TRACT INFECTION, SITE NOT SPECIFIED Status: Acute Qualifiers: Urinary tract infection type: acute cystitis Hematuria presence: without hematuria Qualified Code(s): N30.00 - Acute cystitis without hematuria (2) Weakness SNOMED Code(s): 01098581 ICD Code: R53.1 - WEAKNESS Status: Acute (3) Hepatic encephalopathy SNOMED Code(s): 26005631 ICD Code: K72.90 - HEPATIC FAILURE, UNSPECIFIED WITHOUT COMA Status: Chronic (4) Cirrhosis of liver with ascites SNOMED Code(s): 45526749 ICD Code: K74.60 - UNSPECIFIED CIRRHOSIS OF LIVER; R18.8 - OTHER ASCITES Status: Chronic Priority: High Qualifiers: Hepatic cirrhosis type: unspecified hepatic cirrhosis Qualified Code(s): K74.60 - Unspecified cirrhosis of liver; R18.8 - Other ascites (5) Diabetes mellitus type II, controlled SNOMED Code(s): 71206390, 683340975 ICD Code: E11.9 - TYPE 2 DIABETES MELLITUS WITHOUT COMPLICATIONS Status: Chronic Qualifiers: Diabetes mellitus 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 PT Reason for Consult: Strengthening This query below is only for informational purposes and is not editable. Hospital Course: Lilian presented to the emergency room with weakness and confusion. Workup in the emergency room suggested hepatic encephalopathy with elevated ammonia as well as a urinary tract infection. Because of her weakness and confusion she was admitted to the hospital for further management and was not thought to be safe for outpatient management. Overnight she received gentle hydration. She was started on ceftriaxone for the urinary tract infection. Lactulose was continued for the hepatic encephalopathy. Unfortunately the morning after admission her ammonia level had actually risen to 100. She did not have any fevers and seem to be doing okay from an infection standpoint. Lactulose and antibiotics were continued throughout the day following admission and by the morning of discharge her ammonia level is down to 24. Her urine cultures growing Klebsiella which is nearly pansensitive. She is much more clear today. She is still little bit weak but seems to be moving better. This point she and her sister feel comfortable with her at home given her strength and mobility at the current time. She will need 3 more days of antibiotics with cephalexin. I did decrease her lactulose down to twice daily given the elevated frequency of bowel movements she has been having. I think the elevated ammonia was related to her infection and now that that's treated should be easier to control with the lactulose. She was interested in home health care and a referral was placed. They will be seeing her tomorrow. I also discontinued her Carafate she' s been having difficulty trying to take this medication. She'll be following up early next week with primary care. - Patient Instructions Diet: Low Sodium Activity: As Tolerated Showering/Bathing: May Shower Notify Provider of: Fever, Increased Pain, Nausea and/or Vomiting Other/Special Instructions: 1. You were in the hospital for management of hepatic encephalopathy with elevated ammonia as well as a urinary tract infection. Your urine culture growing a bacteria called Klebsiella. I recommend 6 additional doses of cephalexin (Keflex). You should take 500 mg twice daily with your next dose being due tonight. Your ammonia level is now down to 24. Now that the infection is treated I think you can decrease your lactulose down to twice daily. Our goal is for you to have 3-5 loose to soft bowel movements per day. 2. Stop taking the Carafate. 3. Follow up with Aidee Candelaria next week. 4. I have placed a referral to home health care. They will provided nursing, physical therapy and occupational therapies as well as a home health aide to easier transition home from the hospital. 5. Seek medical attention if you develop fever greater than 101, have significant confusion or profound weakness. - Discharge Plan *PRESCRIPTION DRUG MONITORING PROGRAM REVIEWED*: Not Applicable *COPY OF PRESCRIPTION DRUG MONITORING REPORT IN PATIENT ALISON: Not Applicable Prescriptions/Med Rec: cephALEXin [Keflex] 500 mg PO BID #6 cap Lactulose 10 gm PO BID 30 Days #30 ml Home Medications: Home Meds Pantoprazole Sodium [Protonix] 40 mg PO DAILY 11/01/17 [History] Folic Acid 1 mg PO DAILY 04/08/18 [History] Furosemide [Lasix] 40 mg PO DAILY 04/08/18 [History] Potassium Chloride [Klor-Con M20] 20 meq PO DAILY 04/08/18 [History] Sertraline [Zoloft] 100 mg PO DAILY 04/08/18 [History] Spironolactone [Aldactone] 50 mg PO DAILY 04/08/18 [History] Thiamine [Vitamin B-1] 100 mg PO DAILY 04/08/18 [History] metFORMIN [Glucophage] 500 mg PO DAILY 04/08/18 [History] Ferrous Sulfate 325 mg PO DAILY 06/05/18 [History] Lactulose 10 gm PO BID 30 Days #30 ml 06/14/18 [Rx] cephALEXin [Keflex] 500 mg PO BID #6 cap 06/14/18 [Rx] Oxygen Therapy Mode: Room Air Patient Handouts: Hepatic Encephalopathy, Urinary Tract Infection, Adult, Easy- to-Read, Cephalexin tablets or capsules Referrals: Yue Candelaria PA [Primary Care Provider] - 06/27/18 1:30 pm (1 week - follow- up hospital stay for urinary tract infection and hepatic encephalopathy) - Discharge Summary/Plan Comment DC Time >30 min.: Yes (40 - setting up home care ) - Patient Data Vitals - Most Recent: Last Vital Signs Temp 36.8 C 06/14/18 07:00 Pulse 54 L 06/14/18 10:00 Resp 16 06/14/18 10:00 BP 134/48 L 06/14/18 07:00 Pulse Ox 91 L 06/14/18 10:00 Weight - Most Recent: 102.512 kg I&O - Last 24 hours: Intake & Output 06/13/18 06/14/18 06/14/18 22:59 06:59 14:59 Intake Total 530 360 Output Total 300 Balance 230 360 Lab Results - Last 24 hrs: Laboratory Results - last 24 hr 06/14/18 06/14/18 Range/Units 04:47 04:47 Sodium 142 (140-148) mmol/L Potassium 3.4 L (3.6-5.2) mmol/L Chloride 111 H (100-108) mmol/L Carbon Dioxide 21 (21-32) mmol/L Anion Gap 13.4 (5.0-14.0) mmol/L BUN 27 H (7-18) mg/dL Creatinine 1.5 H (0.6-1.0) mg/dL Est Cr Clr Drug Dosing 30.92 mL/min Estimated GFR (MDRD) 35 L (>60) Glucose 106 (74-106) mg/dL Calcium 8.2 L (8.5-10.1) mg/dL Ammonia 24 (11-32) mmol/L ABHILASH Results - Last 24 hrs: Microbiology 06/12/18 16:45 Urine Culture - Final Urine, Clean Catch Klebsiella Pneumonia Ss Pneumo 06/12/18 16:40 Aerobic Blood Culture - Preliminary Blood - Arm, Right NO GROWTH AFTER 1 DAY Anaerobic Blood Culture - Preliminary NO GROWTH AFTER 1 DAY 06/12/18 16:30 Aerobic Blood Culture - Preliminary Blood - Arm, Left NO GROWTH AFTER 1 DAY Anaerobic Blood Culture - Preliminary NO GROWTH AFTER 1 DAY Med Orders - Current: Current Medications Acetaminophen (Tylenol) 650 mg PO Q6H PRN PRN Reason: Pain (Mild 1-3)/fever Benzonatate (Tessalon Perles) 100 mg PO TID PRN PRN Reason: COUGH Ferrous Sulfate (Ferrous Sulfate) 325 mg PO DAILY [facility] Last Admin: 06/14/18 09:18 Dose: 325 mg Folic Acid (Folic Acid) 1 mg PO DAILY [facility] Last Admin: 06/14/18 09:11 Dose: 1 mg Furosemide (Lasix) 40 mg PO DAILY [facility] Last Admin: 06/14/18 09:12 Dose: 40 mg Ceftriaxone Sodium 2 gm/ (Sodium Chloride) 50 mls @ 100 mls/hr IV Q24H [facility] Last Admin: 06/13/18 16:10 Dose: 100 mls/hr (Lactulose [ Lactulose] 10 Gm)*Pt Own Med* 10 gm PO TID [facility] Last Admin: 06/14/18 09:16 Dose: 10 gm Ondansetron HCl (Zofran Odt) 4 mg PO Q6H PRN PRN Reason: Nausea able to take PO Pantoprazole Sodium (Protonix) 40 mg PO ACBREAKFAST [facility] Last Admin: 06/14/18 09:08 Dose: 40 mg Sertraline 100mg Tab ((Ptom)) 0 each PO DAILY [facility] Last Admin: 06/14/18 09:14 Dose: 1 each Spironolactone 50mg (Tab (Ptom)) 0 each PO DAILY [facility] Last Admin: 06/14/18 09:10 Dose: 1 each Pneumococcal Polyvalent Vaccine (Pneumovax 23) 0.5 ml IM .ONCE ONE Stop: 06/14/18 10:46 Potassium Chloride (Klor-Con M20) 20 meq PO DAILY [facility] Last Admin: 06/14/18 09:12 Dose: 20 meq Potassium Chloride (Klor-Con M20) 40 meq PO ONETIME ONE Stop: 06/14/18 12:01 Sodium Chloride (Saline Flush) 10 ml FLUSH ASDIRECTED PRN PRN Reason: Keep Vein Open Thiamine HCl (Vitamin B-1) 100 mg PO DAILY [facility] Last Admin: 06/14/18 09:14 Dose: 100 mg Discontinued Medications Ceftriaxone Sodium (Rocephin) 1,000 mg IVPUSH ONETIME ONE Stop: 06/12/18 17:41 Last Admin: 06/12/18 18:10 Dose: 1,000 mg Ceftriaxone Sodium 1 gm/ (Lidocaine HCl 2.1 ml) 0 gm IM ONETIME ONE Stop: 06/12/18 16:29 Last Admin: 06/12/18 20:05 Dose: Not Given Sodium Chloride (Normal Saline) 1,000 mls @ 125 mls/hr IV ASDIRECTED [facility] Last Admin: 06/13/18 10:57 Dose: 125 mls/hr Sodium Chloride (Normal Saline) 50 mls @ 100 mls/hr IV NOW STA Stop: 06/12/18 18:19 Last Admin: 06/12/18 18:11 Dose: 100 mls/hr Ceftriaxone Sodium 1 gm/ (Sodium Chloride) 50 mls @ 100 mls/hr IV ONETIME ONE Stop: 06/13/18 06:29 Last Admin: 06/13/18 05:03 Dose: 100 mls/hr (Sucralfate [ Carafate] 1 Gm)*Pt Own Med* 1 gm PO QIDACANDBED [facility] Last Admin: 06/13/18 11:48 Dose: Not Given Pneumococcal Polyvalent Vaccine (Pneumovax 23) 0.5 ml IM .ONCE ONE Stop: 06/13/18 09:01 Last Admin: 06/13/18 10:43 Dose: Not Given - Exam Quality Assessment: Denies: Supplemental Oxygen General: Reports: Alert, Oriented, Cooperative, No Acute Distress Lungs: Reports: Normal Respiratory Effort GI/Abdominal Exam: Soft, No Distention Extremities: Pedal Edema Skin: Reports: Warm, Dry Neurological: Reports: Other (no asterixis ) Psy/Mental Status: Reports: Alert, Normal Affect *Q Meaningful Use (DIS) - VTE *Q VTE Mechanical Contraindications *Q: Bilateral Lower Edema
[2018-06-14] MEDS ORDERED: Pneumococcal Polyvalent-23 Vaccine 0.5 ML SDV IM ONE (10:45)
[2018-06-14] MEDS: Potassium Chloride 20 MEQ Tab.ER PO ONE ×2 (10:47→10:50)
== END 2018-06-14 11:45 | disposition home health service (06) ==
LOC: JP.ED 13:17 → JP.MS 17:06
PROVIDERS: ADMIT Internal Medicine; ATTEND Internal Medicine
DX: N30.00 Acute cystitis without hematuria (principal); B96.89 Other specified bacterial agents as the cause of diseases classified elsewhere; K72.90 Hepatic failure, unspecified without coma; K75.4 Autoimmune hepatitis; R53.1 Weakness; N17.9 Acute kidney failure, unspecified; R41.0 Disorientation, unspecified; K74.60 Unspecified cirrhosis of liver; E11.9 Type 2 diabetes mellitus without complications; I10 Essential (primary) hypertension; E66.9 Obesity, unspecified; Z68.41 Body mass index [BMI] 40.0-44.9, adult; Z79.84 Long term (current) use of oral hypoglycemic drugs; Z79.899 Other long term (current) drug therapy; Z88.0 Allergy status to penicillin
CPT/HCPCS: 36415; 80048; 81001; 82140; 83605; 85610; 87040; 87086; 87088; 87186; 90732; 96374; 97162; 99285; A9270; J0696; J7030; J7050; 96361; 96365; 96376; G0378

== ENCOUNTER 2018-07-15 11:12 | Inpatient (IN) | payer MEDICARE, BC ==
--- NOTE | 2018-07-15 11:58 | EDM.PDOC ---
ED HPI GENERAL MEDICAL PROBLEM - General Chief Complaint: General Stated Complaint: WEAKNESS Time Seen by Provider: 07/15/18 11:43 Source of Information: Reports: Patient, Family, Old Records, RN Notes Reviewed History Limitations: Reports: No Limitations - History of Present Illness INITIAL COMMENTS - FREE TEXT/NARRATIVE: 63-year-old female presents to the emergency department today complaint of increased weakness, falling and some confusion. She has a known history of autoimmune hepatitis family members are with concerned about her not taking her medications as scheduled she did have home health prior which she did very well unfortunately she passed all the tests and home health was discontinued, her health has declined since - Related Data Allergies Allergy/AdvReac Type Severity Reaction Status Date / Time Penicillins Allergy Cannot Verified 06/12/18 13:41 Remember Home Meds: Home Meds Pantoprazole Sodium [Protonix] 40 mg PO DAILY 11/01/17 [History] Folic Acid 1 mg PO DAILY 04/08/18 [History] Furosemide [Lasix] 40 mg PO DAILY 04/08/18 [History] Potassium Chloride [Klor-Con M20] 20 meq PO DAILY 04/08/18 [History] Sertraline [Zoloft] 100 mg PO DAILY 04/08/18 [History] Spironolactone [Aldactone] 50 mg PO DAILY 04/08/18 [History] Thiamine [Vitamin B-1] 100 mg PO DAILY 04/08/18 [History] Ferrous Sulfate 325 mg PO DAILY 06/05/18 [History] Lactulose 10 gm PO BID 30 Days #30 ml 06/14/18 [Rx] cephALEXin [Keflex] 500 mg PO BID #6 cap 06/14/18 [Rx] Past Medical History HEENT History: Reports: Impaired Vision Other HEENT History: wears glasses Cardiovascular History: Reports: Hypertension Gastrointestinal History: Reports: Cirrhosis, Diverticulosis, Hemorrhoids, Hepatitis, Other (See Below) Other Gastrointestinal History: liver cirrhosis with ascitis. 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 [employer] History: Reports: Musculoskeletal History: Reports: Back Pain, Chronic Psychiatric History: Reports: Depression Endocrine/Metabolic History: Reports: Diabetes, Type II, Obesity/BMI 30+ Hematologic History: Reports: Anemia, Iron Deficiency Immunologic History: Reports: Other (See Below) Other Immunologic History: autoimmune hepatitis Dermatologic History: Reports: None - Infectious Disease History Infectious Disease History: Reports: Chicken Pox - Past Surgical History HEENT Surgical History: Reports: None Cardiovascular Surgical History: Reports: None GI Surgical History: Reports: Cholecystectomy, Colonoscopy, Other (See Below) Other GI Surgeries/Procedures: polyp Endocrine Surgical History: Reports: None Musculoskeletal Surgical History: Reports: None Dermatological Surgical History: Reports: Skin Biopsy Social & Family History - Family History HEENT: Reports: Cataract, Impaired Vision Cardiac: Reports: Heart Failure, Hypertension, [place] Respiratory: Reports: Asthma, COPD, Sleep Apnea GI: Reports: Cirrhosis OBGYN: Reports: Musculoskeletal: Reports: Gout, Osteoarthritis Neurological: Reports: Alzheimers Disease, CVA Psychiatric: Reports: Anxiety, Bipolar, Depression Endocrine/Metabolic: Reports: Diabetes, type II Oncologic: Reports: Brain, Breast, Colon, Lung, Prostate - Tobacco Use Smoking Status *Q: Never Smoker - Caffeine Use Caffeine Use: Reports: Coffee, Tea - Recreational Drug Use Recreational Drug Use: No ED ROS GENERAL - Review of Systems Review Of Systems: See Below Constitutional: Reports: Weakness. Denies: Fever, Chills HEENT: Reports: No Symptoms Respiratory: Reports: No Symptoms Cardiovascular: Reports: No Symptoms GI/Abdominal: Reports: No Symptoms : Reports: No Symptoms Musculoskeletal: Reports: No Symptoms Skin: Reports: No Symptoms Neurological: Reports: Confusion, Weakness ED EXAM, GENERAL - Physical Exam Exam: See Below Free Text/Narrative:: Positive liver flap on the left Exam Limited By: No Limitations General Appearance: Alert, WD/WN, No Apparent Distress Eye Exam: Bilateral Eye: Other (Scleral icterus) Respiratory/Chest: No Respiratory Distress, Lungs Clear, Normal Breath Sounds, No Accessory Muscle Use, Chest Non-Tender Cardiovascular: Normal Peripheral Pulses, Regular Rate, Rhythm, No Murmur GI/Abdominal: Soft, Distended Extremities: Pedal Edema Course - Vital Signs Last Recorded V/S: Last Vital Signs Temp 95.5 F 07/15/18 11:28 Pulse 103 H 07/15/18 11:28 Resp 13 07/15/18 11:28 BP 156/78 H 07/15/18 11:28 Pulse Ox 99 07/15/18 11:28 - Orders/Labs/Meds Labs: Laboratory Tests 07/15/18 07/15/18 07/15/18 Range/Units 11:51 11:55 12:07 WBC 4.3 L (4.5-11.0) K/uL RBC 2.69 L (3.30-5.50) M/uL Hgb 8.1 L (12.0-15.0) g/dL Hct 25.6 L (36.0-48.0) % MCV 95 (80-98) fL MCH 30 (27-31) pg MCHC 32 (32-36) % Plt Count 103 L (150-400) K/uL Neut % (Auto) 73 H (36-66) % Lymph % (Auto) 13 L (24-44) % [place] % (Auto) 11 H (2-6) % Eos % (Auto) 1 L (2-4) % Baso % (Auto) 1 (0-1) % PT 12.6 H (9.5-12.0) sec INR 1.15 (0.80-1.20) Sodium (140-148) mmol/L Potassium (3.6-5.2) mmol/L Chloride (100-108) mmol/L Carbon Dioxide (21-32) mmol/L Anion Gap (5.0-14.0) mmol/L BUN (7-18) mg/dL Creatinine (0.6-1.0) mg/dL Est Cr Clr Drug Dosing mL/min Estimated GFR (MDRD) (>60) Glucose (74-106) mg/dL Lactic Acid (0.4-2.0) mmol/L Calcium (8.5-10.1) mg/dL Total Bilirubin (0.2-1.0) mg/dL AST (15-37) U/L ALT (12-78) U/L Alkaline Phosphatase (46-116) U/L Ammonia (11-32) mmol/L Total Protein (6.4-8.2) g/dL Albumin (3.4-5.0) g/dL Globulin (2.3-3.5) g/dL Albumin/Globulin Ratio (1.2-2.2) Lipase (73-393) U/L Urine Color Yellow Urine Appearance Cloudy Urine pH 5.0 (4.5-8.0) Ur Specific [place] 1.015 (1.008-1.030) Urine Protein Negative (NEGATIVE) mg/dL Urine Glucose (UA) Negative (NEGATIVE) mg/dL Urine Ketones Negative (NEGATIVE) mg/dL Urine Occult Blood Trace (NEGATIVE) Urine Nitrite Negative (NEGATIVE) Urine Bilirubin Negative (NEGATIVE) Urine Urobilinogen Normal (NORMAL) mg/dL Ur Leukocyte Esterase Moderate (NEGATIVE) Urine RBC 0-5 (0-5) Urine WBC 20-30 H (0-5) Ur Epithelial Cells Moderate Amorphous Sediment Rare Urine Bacteria Few Urine Mucus Few 07/15/18 07/15/18 07/15/18 Range/Units 12:07 12:07 12:07 WBC (4.5-11.0) K/uL RBC (3.30-5.50) M/uL Hgb (12.0-15.0) g/dL Hct (36.0-48.0) % MCV (80-98) fL MCH (27-31) pg MCHC (32-36) % Plt Count (150-400) K/uL Neut % (Auto) (36-66) % Lymph % (Auto) (24-44) % [place] % (Auto) (2-6) % Eos % (Auto) (2-4) % Baso % (Auto) (0-1) % PT (9.5-12.0) sec INR (0.80-1.20) Sodium 140 (140-148) mmol/L Potassium 4.4 (3.6-5.2) mmol/L Chloride 110 H (100-108) mmol/L Carbon Dioxide 19 L (21-32) mmol/L Anion Gap 15.4 H (5.0-14.0) mmol/L BUN 34 H (7-18) mg/dL Creatinine 2.1 H (0.6-1.0) mg/dL Est Cr Clr Drug Dosing 22.09 mL/min Estimated GFR (MDRD) 24 L (>60) Glucose 99 (74-106) mg/dL Lactic Acid 3.9 H (0.4-2.0) mmol/L Calcium 8.6 (8.5-10.1) mg/dL Total Bilirubin 1.4 H (0.2-1.0) mg/dL AST 77 H (15-37) U/L ALT 38 (12-78) U/L Alkaline Phosphatase 196 H (46-116) U/L Ammonia 105 H (11-32) mmol/L Total Protein 7.5 (6.4-8.2) g/dL Albumin 1.9 L (3.4-5.0) g/dL Globulin 5.6 H (2.3-3.5) g/dL Albumin/Globulin Ratio 0.3 L (1.2-2.2) Lipase 377 (73-393) U/L Urine Color Urine Appearance Urine pH (4.5-8.0) Ur Specific [place] (1.008-1.030) Urine Protein (NEGATIVE) mg/dL Urine Glucose (UA) (NEGATIVE) mg/dL Urine Ketones (NEGATIVE) mg/dL Urine Occult Blood (NEGATIVE) Urine Nitrite (NEGATIVE) Urine Bilirubin (NEGATIVE) Urine Urobilinogen (NORMAL) mg/dL Ur Leukocyte Esterase (NEGATIVE) Urine RBC (0-5) Urine WBC (0-5) Ur Epithelial Cells Amorphous Sediment Urine Bacteria Urine Mucus Departure - Departure Time of Disposition: 13:50 Disposition: Refer to Observation Condition: Poor Clinical Impression: Hepatic encephalopathy, Autoimmune hepatitis - Discharge Information Referrals: Yue Candelaria PA [Primary Care Provider] - Forms: ED Department Discharge - Assessment/Plan Plan: Assessment Acuity = acute Site and laterality = hepatic encephalitis Etiology = probably related to medical compliance Manifestations = increased confusion Location of injury = Home Lab values = hemoglobin low at 8.1 consistent with normochromic anemia creatinine elevated 2.1 consistent chronic renal failure stage GIV lactic acid elevated 3.9 consistent lactic acidosis total bilirubin elevated 1.4 consistent hyperbilirubinemia AST elevated at 77 consistent elevated liver enzymes ammonia elevated 105 albumin low at 1.9 consistent hypoalbuminemia urinalysis reveals 20 -30 WBCs consistent pyuria cultures pending Plan Call discuss case hospitalist lead mason tender he agreed to come and evaluate the patient emergency department for admission at 1330 This note was dictated using [employer] voice recognition software please call with any questions on syntax or grammar.
--- NOTE | 2018-07-15 14:23 | PCM.HP ---
H&P History of Present Illness - General Date of Service: 07/15/18 Admit Problem/Dx: Admission Diagnosis/Problem Admission Diagnosis/Problem Encephalopathy Source of Information: Patient, Family, Old Records, Provider, RN Notes Reviewed History Limitations: Reports: Altered Mental Status (Confusion secondary to hepatic encephalopathy) - History of Present Illness Initial Comments - Free Text/Narative: Ms. Keller is a 63-year-old woman who is admitted through the emergency department with weakness and confusion secondary to hepatic encephalopathy. She has a known history of autoimmune hepatitis, complicated by cirrhosis and hepatic encephalopathy. She had been admitted to this facility about 2 weeks ago with urinary tract infection and exacerbation of her encephalopathy. She initially did well after discharge but now over the past few days has been more confused and forgetting to take medications. She fell last week suffering bruises to her face and has become progressively more weak. Over the past few days has developed a significant increase in peripheral edema with denuded blisters and weeping from the skin. There is no evidence of underlying infection at the present time, ammonia level is elevated at 105. - Related Data Allergies/Adverse Reactions: Allergies Allergy/AdvReac Type Severity Reaction Status Date / Time Penicillins Allergy Cannot Verified 06/12/18 13:41 Remember Home Medications: Home Meds Pantoprazole Sodium [Protonix] 40 mg PO DAILY 11/01/17 [History] Folic Acid 1 mg PO DAILY 04/08/18 [History] Furosemide [Lasix] 40 mg PO DAILY 04/08/18 [History] Potassium Chloride [Klor-Con M20] 20 meq PO DAILY 04/08/18 [History] Sertraline [Zoloft] 100 mg PO DAILY 04/08/18 [History] Spironolactone [Aldactone] 50 mg PO DAILY 04/08/18 [History] Thiamine [Vitamin B-1] 100 mg PO DAILY 04/08/18 [History] Ferrous Sulfate 325 mg PO DAILY 06/05/18 [History] Lactulose 10 gm PO BID 30 Days #30 ml 06/14/18 [Rx] cephALEXin [Keflex] 500 mg PO BID #6 cap 06/14/18 [Rx] Past Medical History HEENT History: Reports: Impaired Vision Other HEENT History: wears glasses Cardiovascular History: Reports: Hypertension Gastrointestinal History: Reports: Cirrhosis, Diverticulosis, Hemorrhoids, Hepatitis, Other (See Below) Other Gastrointestinal History: liver cirrhosis with ascitis. 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 [employer] History: Reports: Musculoskeletal History: Reports: Back Pain, Chronic Psychiatric History: Reports: Depression Endocrine/Metabolic History: Reports: Diabetes, Type II, Obesity/BMI 30+ Hematologic History: Reports: Anemia, Iron Deficiency Immunologic History: Reports: Other (See Below) Other Immunologic History: autoimmune hepatitis Dermatologic History: Reports: None - Infectious Disease History Infectious Disease History: Reports: Chicken Pox - Past Surgical History HEENT Surgical History: Reports: None Cardiovascular Surgical History: Reports: None GI Surgical History: Reports: Cholecystectomy, Colonoscopy, Other (See Below) Other GI Surgeries/Procedures: polyp Endocrine Surgical History: Reports: None Musculoskeletal Surgical History: Reports: None Dermatological Surgical History: Reports: Skin Biopsy Social & Family History - Family History HEENT: Reports: Cataract, Impaired Vision Cardiac: Reports: Heart Failure, Hypertension, [place] Respiratory: Reports: Asthma, COPD, Sleep Apnea GI: Reports: Cirrhosis OBGYN: Reports: Musculoskeletal: Reports: Gout, Osteoarthritis Neurological: Reports: Alzheimers Disease, CVA Psychiatric: Reports: Anxiety, Bipolar, Depression Endocrine/Metabolic: Reports: Diabetes, type II Oncologic: Reports: Brain, Breast, Colon, Lung, Prostate - Tobacco Use Smoking Status *Q: Never Smoker - Caffeine Use Caffeine Use: Reports: Coffee, Tea - Recreational Drug Use Recreational Drug Use: No H&P Review of Systems - Review of Systems: Review Of Systems: Unable To Obtain General: Reports: ROS unobtainable (Hepatic encephalopathy) Exam - Exam Exam: See Below - Vital Signs Vital Signs: Last Vital Signs Temp 95.5 F 07/15/18 11:28 Pulse 103 H 07/15/18 11:28 Resp 13 07/15/18 11:28 BP 156/78 H 07/15/18 11:28 Pulse Ox 99 07/15/18 11:28 Weight: 198 lb - Exam Quality Assessment: Skin Breakdown (Both lower legs) General: Alert, Cooperative, Mild Distress. No: Oriented HEENT: Conjunctiva Clear, Hearing Intact, Mucosa Moist & [place], Normal Nasal Septum, Posterior Pharynx Clear, Pupils Equal Neck: Supple, Trachea Midline, +2 Carotid Pulse wo Bruit Lungs: Clear to Auscultation, Normal Respiratory Effort Cardiovascular: Regular Rate, Regular Rhythm, Normal S1, Normal S2. No: Systolic Murmur, Diastolic Murmur GI/Abdominal Exam: Soft, Non-Tender, No Organomegaly, No Distention Extremities: Non-Tender, Pedal Edema Skin: Warm, Dry Neurological: Cranial Nerves Intact, Strength Equal Bilateral, Normal Speech, Normal Tone, Sensation Intact. No: Focal Deficit Neuro Extensive - Mental Status: Alert, Normal Mood/Affect, Disorientation to Time, Memory Loss-Remote Events, Memory Loss-Recent Events. No: Oriented x3, Normal Cognition, Memory Intact, Disorientation to Person, Disorientation to Place - Patient Data Lab Results Last 24 hrs: Laboratory Results - last 24 hr 07/15/18 07/15/18 07/15/18 Range/Units 11:51 11:55 12:07 WBC 4.3 L (4.5-11.0) K/uL RBC 2.69 L (3.30-5.50) M/uL Hgb 8.1 L (12.0-15.0) g/dL Hct 25.6 L (36.0-48.0) % MCV 95 (80-98) fL MCH 30 (27-31) pg MCHC 32 (32-36) % Plt Count 103 L (150-400) K/uL Neut % (Auto) 73 H (36-66) % Lymph % (Auto) 13 L (24-44) % [place] % (Auto) 11 H (2-6) % Eos % (Auto) 1 L (2-4) % Baso % (Auto) 1 (0-1) % PT 12.6 H (9.5-12.0) sec INR 1.15 (0.80-1.20) Sodium (140-148) mmol/L Potassium (3.6-5.2) mmol/L Chloride (100-108) mmol/L Carbon Dioxide (21-32) mmol/L Anion Gap (5.0-14.0) mmol/L BUN (7-18) mg/dL Creatinine (0.6-1.0) mg/dL Est Cr Clr Drug Dosing mL/min Estimated GFR (MDRD) (>60) Glucose (74-106) mg/dL Lactic Acid (0.4-2.0) mmol/L Calcium (8.5-10.1) mg/dL Total Bilirubin (0.2-1.0) mg/dL AST (15-37) U/L ALT (12-78) U/L Alkaline Phosphatase (46-116) U/L Ammonia (11-32) mmol/L Total Protein (6.4-8.2) g/dL Albumin (3.4-5.0) g/dL Globulin (2.3-3.5) g/dL Albumin/Globulin Ratio (1.2-2.2) Lipase (73-393) U/L Urine Color Yellow Urine Appearance Cloudy Urine pH 5.0 (4.5-8.0) Ur Specific [place] 1.015 (1.008-1.030) Urine Protein Negative (NEGATIVE) mg/dL Urine Glucose (UA) Negative (NEGATIVE) mg/dL Urine Ketones Negative (NEGATIVE) mg/dL Urine Occult Blood Trace (NEGATIVE) Urine Nitrite Negative (NEGATIVE) Urine Bilirubin Negative (NEGATIVE) Urine Urobilinogen Normal (NORMAL) mg/dL Ur Leukocyte Esterase Moderate (NEGATIVE) Urine RBC 0-5 (0-5) Urine WBC 20-30 H (0-5) Ur Epithelial Cells Moderate Amorphous Sediment Rare Urine Bacteria Few Urine Mucus Few 07/15/18 07/15/18 07/15/18 Range/Units 12:07 12:07 12:07 WBC (4.5-11.0) K/uL RBC (3.30-5.50) M/uL Hgb (12.0-15.0) g/dL Hct (36.0-48.0) % MCV (80-98) fL MCH (27-31) pg MCHC (32-36) % Plt Count (150-400) K/uL Neut % (Auto) (36-66) % Lymph % (Auto) (24-44) % [place] % (Auto) (2-6) % Eos % (Auto) (2-4) % Baso % (Auto) (0-1) % PT (9.5-12.0) sec INR (0.80-1.20) Sodium 140 (140-148) mmol/L Potassium 4.4 (3.6-5.2) mmol/L Chloride 110 H (100-108) mmol/L Carbon Dioxide 19 L (21-32) mmol/L Anion Gap 15.4 H (5.0-14.0) mmol/L BUN 34 H (7-18) mg/dL Creatinine 2.1 H (0.6-1.0) mg/dL Est Cr Clr Drug Dosing 22.09 mL/min Estimated GFR (MDRD) 24 L (>60) Glucose 99 (74-106) mg/dL Lactic Acid 3.9 H (0.4-2.0) mmol/L Calcium 8.6 (8.5-10.1) mg/dL Total Bilirubin 1.4 H (0.2-1.0) mg/dL AST 77 H (15-37) U/L ALT 38 (12-78) U/L Alkaline Phosphatase 196 H (46-116) U/L Ammonia 105 H (11-32) mmol/L Total Protein 7.5 (6.4-8.2) g/dL Albumin 1.9 L (3.4-5.0) g/dL Globulin 5.6 H (2.3-3.5) g/dL Albumin/Globulin Ratio 0.3 L (1.2-2.2) Lipase 377 (73-393) U/L Urine Color Urine Appearance Urine pH (4.5-8.0) Ur Specific [place] (1.008-1.030) Urine Protein (NEGATIVE) mg/dL Urine Glucose (UA) (NEGATIVE) mg/dL Urine Ketones (NEGATIVE) mg/dL Urine Occult Blood (NEGATIVE) Urine Nitrite (NEGATIVE) Urine Bilirubin (NEGATIVE) Urine Urobilinogen (NORMAL) mg/dL Ur Leukocyte Esterase (NEGATIVE) Urine RBC (0-5) Urine WBC (0-5) Ur Epithelial Cells Amorphous Sediment Urine Bacteria Urine Mucus Result Diagrams: 07/15/18 12:07 07/15/18 12:07 *Q Meaningful Use (ADM) - VTE Risk Assess *Q Each Risk Factor Represents 1 Point: Swollen Legs, Current Total Score 1 Point Risk Factors: 1 Each Risk Factor Represents 2 Points: Age 60 - 74 Years Total Score 2 Point Risk Factors: 2 Each Risk Factor Represents 3 Points: None Total Score 3 Point Risk Factors: 0 Each Risk Factor Represents 5 Points: None Total Score 5 Point Risk Factors: 0 Venous Thromboembolism Risk Factor Score *Q: 3 Problem List Initiated/Reviewed/Updated: Yes Orders Last 24hrs: Active Orders 24 hr Category Date Time Status Patient Status Manage Transfer [TRANSFER] Routine ADT 07/15/18 14:16 Ordered CULTURE URINE [RM] Urgent Lab 07/15/18 11:51 Received Resuscitation Status Routine Resus Stat 07/15/18 14:19 Ordered Assessment/Plan Comment:: ASSESSMENT AND PLAN Hepatic encephalopathy-increased confusion over the past several days, complicated by not taking her medication because of the confusion. -Lactulose 20 mg by mouth twice a day -Recheck ammonia level in a.m. Peripheral edema-she has not been taking her diuretic therapy over the past several days and has significant peripheral edema in the lower legs areas of excoriation and fluid blisters -Furosemide 60 mg IV now -Reassess in a.m. Acute kidney injury-at baseline has chronic kidney disease IIIb, creatinine today is 2.1 with an estimated GFR of 24. -Monitor renal function and urine output closely with diuresis Autoimmune hepatitis - complicated by cirrhosis with ascites as well as hepatic encephalopathy. She did have a recent TIPS procedure and has not had significant difficulty with ascites since that time. Type 2 diabetes mellitus - currently on no medical therapy -4 times a day glucometers -Low-dose sliding scale [place] Maintenance issues - DVT prophylaxis - Lovenox 30 mg subcutaneous daily - GI prophylaxis - PPI - Nutrition - low sodium - Ernandez catheter - not indicated CODE STATUS -FULL CODE Admission justification - patient will be referred observation status for initiation of antibiotics and physical therapy for strengthening Disposition - I would anticipate discharge to home versus fdc dependent on overall strength Primary care physician - Dr. Trammell
[2018-07-15] MEDS ORDERED: Glucose Gel 15 GM in 37.5 GM Tube PO PRN (15:43)
[2018-07-15] MEDS ORDERED: 50% Dextrose in Water 50 ML Syringe IV PRN (15:43)
[2018-07-15] MEDS ORDERED: Furosemide 100 MG/10 ML SDV IVPUSH ONE (16:30)
[2018-07-15] MEDS: Lactulose Soln 10 GM/15 ML 15 ML UD Cup PO SCH ×2 (16:49→21:45)
[2018-07-15] MEDS: Insulin Lispro 100 Unit/ML 3 ML KwikPen SUBCUT SCH ×2 (17:07→21:43)
[2018-07-15] MEDS: Enoxaparin 30 MG/0.3 ML Syringe SUBCUT SCH (17:08)
[2018-07-15] MEDS: oxyCODONE 5 MG Tab PO PRN ×2 (17:13→21:48)
[2018-07-16] MEDS: Ondansetron 4 MG/2 ML SDV IV PRN ×3 (00:17→21:46)
[2018-07-16] MEDS: Sodium Chloride 0.9% 10 ML Syringe FLUSH PRN (00:18)
[2018-07-16] MEDS: oxyCODONE 5 MG Tab PO PRN ×2 (07:51→11:56)
[2018-07-16] MEDS: Pantoprazole 40 MG Tab.CR PO SCH (07:51)
[2018-07-16] MEDS: Insulin Lispro 100 Unit/ML 3 ML KwikPen SUBCUT SCH ×4 (07:52→22:17)
[2018-07-16] MEDS: Lactulose Soln 10 GM/15 ML 15 ML UD Cup PO SCH ×2 (08:48→20:39)
[2018-07-16] MEDS: Spironolactone 25 MG Tab PO SCH (08:48)
[2018-07-16] MEDS: Sertraline 50 MG Tab PO SCH (08:48)
[2018-07-16] MEDS: Potassium Chloride 20 MEQ Tab.ER PO SCH (08:48)
[2018-07-16] MEDS ORDERED: Furosemide 40 MG/4 ML VIAL IVPUSH ONE (14:00)
--- NOTE | 2018-07-16 17:55 | PCM.PN ---
- General Info Date of Service: 07/16/18 Subjective Update: Ms. Keller has improved modestly since admission yesterday, less peripheral edema as well as moderate clearing of hepatic encephalopathy. Hemoglobin noted to be significantly low this morning at 7.1 and she has been transfused one unit of red blood cells. Hemoglobin following transfusion was up to 8.9. Functional Status: Reports: Pain Controlled, Tolerating Diet, Urinating - Review of Systems General: Reports: Weakness. Denies: Fever, Chills Pulmonary: Reports: No Symptoms Cardiovascular: Reports: Dyspnea on Exertion, Edema. Denies: Chest Pain, Palpitations, Orthopnea, PND, Lightheadedness Gastrointestinal: Reports: No Symptoms - Patient Data Vitals - Most Recent: Last Vital Signs Temp 97.3 F 07/16/18 15:00 Pulse 102 H 07/16/18 15:00 Resp 20 07/16/18 15:00 BP 147/59 H 07/16/18 15:00 Pulse Ox 100 07/16/18 15:00 Weight - Most Recent: 200 lb 3.017 oz I&O - Last 24 Hours: Intake & Output 07/16/18 07/16/18 07/16/18 06:59 14:59 22:59 Intake Total 532 Output Total 300 350 600 Balance -300 182 -600 Lab Results Last 24 Hours: Laboratory Results - last 24 hr 07/16/18 07/16/18 07/16/18 Range/Units 05:00 05:00 05:00 WBC 4.1 L (4.5-11.0) K/uL RBC 2.47 L (3.30-5.50) M/uL Hgb 7.1 L (12.0-15.0) g/dL Hct 23.9 L (36.0-48.0) % MCV 97 (80-98) fL MCH 29 (27-31) pg MCHC 30 L (32-36) % Plt Count 141 L (150-400) K/uL PT 14.0 H (9.5-12.0) sec INR 1.29 H (0.80-1.20) Sodium 142 (140-148) mmol/L Potassium 4.1 (3.6-5.2) mmol/L Chloride 112 H (100-108) mmol/L Carbon Dioxide 22 (21-32) mmol/L Anion Gap 12.1 (5.0-14.0) mmol/L BUN 36 H (7-18) mg/dL Creatinine 2.3 H (0.6-1.0) mg/dL Est Cr Clr Drug Dosing 20.17 mL/min Estimated GFR (MDRD) 21 L (>60) Glucose 128 H (74-106) mg/dL Calcium 8.4 L (8.5-10.1) mg/dL Magnesium 1.9 (1.8-2.4) mg/dL Total Bilirubin 1.5 H (0.2-1.0) mg/dL AST 66 H (15-37) U/L ALT 35 (12-78) U/L Alkaline Phosphatase 155 H (46-116) U/L Ammonia (11-32) mmol/L Total Protein 6.6 (6.4-8.2) g/dL Albumin 1.7 L (3.4-5.0) g/dL Globulin 4.9 H (2.3-3.5) g/dL Albumin/Globulin Ratio 0.4 L (1.2-2.2) Blood Type Gel Antibody Screen Crossmatch 07/16/18 07/16/18 07/16/18 Range/Units 05:00 05:00 17:30 WBC (4.5-11.0) K/uL RBC (3.30-5.50) M/uL Hgb 8.9 L (12.0-15.0) g/dL Hct (36.0-48.0) % MCV (80-98) fL MCH (27-31) pg MCHC (32-36) % Plt Count (150-400) K/uL PT (9.5-12.0) sec INR (0.80-1.20) Sodium (140-148) mmol/L Potassium (3.6-5.2) mmol/L Chloride (100-108) mmol/L Carbon Dioxide (21-32) mmol/L Anion Gap (5.0-14.0) mmol/L BUN (7-18) mg/dL Creatinine (0.6-1.0) mg/dL Est Cr Clr Drug Dosing mL/min Estimated GFR (MDRD) (>60) Glucose (74-106) mg/dL Calcium (8.5-10.1) mg/dL Magnesium (1.8-2.4) mg/dL Total Bilirubin (0.2-1.0) mg/dL AST (15-37) U/L ALT (12-78) U/L Alkaline Phosphatase (46-116) U/L Ammonia 72 H (11-32) mmol/L Total Protein (6.4-8.2) g/dL Albumin (3.4-5.0) g/dL Globulin (2.3-3.5) g/dL Albumin/Globulin Ratio (1.2-2.2) Blood Type B POSITIVE Gel Antibody Screen Negative Crossmatch See Detail Baljit Results Last 24 Hours: Microbiology 07/15/18 11:51 Urine Culture - Preliminary Urine, Clean Catch MIXED YOSELIN DAY 1 Med Orders - Current: Current Medications Dextrose (Glutose 15) 15 gm PO ONETIME PRN PRN Reason: Hypoglycemia Dextrose/Water (Dextrose 50% In Water) 50 ml IV ONETIME PRN PRN Reason: Hypoglycemia Enoxaparin Sodium (Lovenox) 30 mg SUBCUT DAILY@1800 [facility] Last Admin: 07/15/18 17:08 Dose: 30 mg Albumin Human (Albumin 25%) 25 gm in 100 mls @ 25 mls/hr IV DAILY [facility] Insulin Human Lispro (Humalog) 0 unit SUBCUT QIDACANDBED [facility]; Protocol Last Admin: 07/16/18 17:16 Dose: Not Given Lactulose (Chronulac) 20 gm PO BID [facility] Last Admin: 07/16/18 08:48 Dose: 20 gm Ondansetron HCl (Zofran) 4 mg IV Q4H PRN PRN Reason: Nausea/Vomiting Last Admin: 07/16/18 15:48 Dose: 4 mg Oxycodone HCl (Oxycodone) 5 mg PO Q4H PRN PRN Reason: Pain Last Admin: 07/16/18 11:56 Dose: 5 mg Pantoprazole Sodium (Protonix) 40 mg PO ACBREAKFAST [facility] Last Admin: 07/16/18 07:51 Dose: 40 mg Potassium Chloride (Klor-Con M20) 20 meq PO DAILY [facility] Last Admin: 07/16/18 08:48 Dose: 20 meq Sertraline HCl (Zoloft) 100 mg PO DAILY [facility] Last Admin: 07/16/18 08:48 Dose: 100 mg Sodium Chloride (Saline Flush) 10 ml FLUSH ASDIRECTED PRN PRN Reason: Keep Vein Open Last Admin: 07/16/18 00:18 Dose: 10 ml Spironolactone (Aldactone) 50 mg PO DAILY [facility] Last Admin: 07/16/18 08:48 Dose: 50 mg Discontinued Medications Furosemide (Lasix) 60 mg IVPUSH ONETIME ONE Stop: 07/15/18 16:31 Last Admin: 07/15/18 16:49 Dose: 60 mg Furosemide (Lasix) 40 mg IVPUSH NOW ONE Stop: 07/16/18 14:01 Last Admin: 07/16/18 14:25 Dose: 40 mg - Exam General: Alert, Oriented, Cooperative, Mild Distress Lungs: Clear to Auscultation, Normal Respiratory Effort Cardiovascular: Regular Rate, Regular Rhythm, No Murmurs GI/Abdominal Exam: Soft, Non-Tender, No Organomegaly, No Distention Extremities: Pedal Edema, Redness - Problem List Review Problem List Initiated/Reviewed/Updated: Yes - My Orders Last 24 Hours: My Active Orders 07/15/18 17:00 Insulin Lispro [HumaLOG] See Protocol SUBCUT QIDACANDBED 07/15/18 18:00 Enoxaparin [Lovenox] 30 mg SUBCUT DAILY@1800 07/16/18 07:30 Pantoprazole [ProTONIX] 40 mg PO ACBREAKFAST 07/16/18 09:00 Potassium Chloride [Klor-Con M20] 20 meq PO DAILY Sertraline [Zoloft] 100 mg PO DAILY Spironolactone [Aldactone] 50 mg PO DAILY 07/16/18 09:14 Transfuse Red Blood Cells [COMM] Urgent 07/16/18 18:00 Albumin Human [Albumin 25%] 25 gm in 100 ml IV DAILY 07/16/18 21:00 GLUCOSE POC LAB TO COLLECT [POC] QIDACANDBED 07/17/18 05:00 CBC WITH AUTO DIFF [HEME] Timed COMPREHENSIVE METABOLIC PN,CMP [CHEM] Timed INR,PT,PROTHROMBIN TIME [COAG] Timed 07/17/18 07:30 GLUCOSE POC LAB TO COLLECT [POC] QIDACANDBED 07/17/18 11:30 GLUCOSE POC LAB TO COLLECT [POC] QIDACANDBED 07/17/18 16:30 GLUCOSE POC LAB TO COLLECT [POC] QIDACANDBED 07/17/18 21:00 GLUCOSE POC LAB TO COLLECT [POC] QIDACANDBED 07/18/18 07:30 GLUCOSE POC LAB TO COLLECT [POC] QIDACANDBED 07/18/18 11:30 GLUCOSE POC LAB TO COLLECT [POC] QIDACANDBED 07/18/18 16:30 GLUCOSE POC LAB TO COLLECT [POC] QIDACANDBED 07/18/18 21:00 GLUCOSE POC LAB TO COLLECT [POC] QIDACANDBED 07/19/18 07:30 GLUCOSE POC LAB TO COLLECT [POC] QIDACANDBED 07/19/18 11:30 GLUCOSE POC LAB TO COLLECT [POC] QIDACANDBED 07/19/18 16:30 GLUCOSE POC LAB TO COLLECT [POC] QIDACANDBED 07/19/18 21:00 GLUCOSE POC LAB TO COLLECT [POC] QIDACANDBED 07/20/18 07:30 GLUCOSE POC LAB TO COLLECT [POC] QIDACANDBED 07/20/18 11:30 GLUCOSE POC LAB TO COLLECT [POC] QIDACANDBED - Plan Plan:: ASSESSMENT AND PLAN Hepatic encephalopathy-moderately improved since admission, ammonia level down to 72. -Lactulose 20 mg by mouth twice a day -Recheck ammonia level in a.m. Peripheral edema-edema improved from admission, still open areas and weeping -Albumin 25 g IV daily -Reassess and re-dose furosemide in a.m. -Reassess in a.m. 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 She did have a recent TIPS procedure and has not had significant difficulty with ascites since that time. Type 2 diabetes mellitus - currently on no medical therapy -4 times a day glucometers -Low-dose sliding scale Humulog Maintenance issues - DVT prophylaxis - Lovenox 30 mg subcutaneous daily - GI prophylaxis - PPI - Nutrition - low sodium - Ernandez catheter - not indicated CODE STATUS -FULL CODE Admission justification - patient will be referred observation status for initiation of antibiotics and physical therapy for strengthening Disposition - I would anticipate discharge to home versus longterm dependent on overall strength Primary care physician - Dr. Trammell
[2018-07-16] MEDS: Enoxaparin 30 MG/0.3 ML Syringe SUBCUT SCH (18:07)
[2018-07-16] MEDS: Morphine 2 MG/ML Syringe IVPUSH PRN (21:46)
[2018-07-17] MEDS: Insulin Lispro 100 Unit/ML 3 ML KwikPen SUBCUT SCH ×4 (08:20→22:09)
[2018-07-17] MEDS: Pantoprazole 40 MG Tab.CR PO SCH (08:23)
[2018-07-17] MEDS: Lactulose Soln 10 GM/15 ML 15 ML UD Cup PO SCH ×4 (08:23→22:10)
[2018-07-17] MEDS ORDERED: Furosemide 20 MG/2 ML VIAL IVPUSH ONE ×2 (08:30→11:30)
[2018-07-17] MEDS: Potassium Chloride 20 MEQ Tab.ER PO SCH (08:40)
[2018-07-17] MEDS: Spironolactone 25 MG Tab PO SCH (08:40)
[2018-07-17] MEDS: Sertraline 50 MG Tab PO SCH (08:41)
--- NOTE | 2018-07-17 13:55 | PCM.PN ---
- General Info Date of Service: 07/17/18 Subjective Update: Ms. Keller feels somewhat improved today, slightly stronger and more clear and alert. Surprisingly ammonia level was significantly elevated this morning, given the fact that she is doing better I suspect that this is some type of lab error and will be repeated this afternoon. Hemoglobin was down to 7.5 mg today and an additional one unit of red blood cells has been ordered. Functional Status: Reports: Pain Controlled, Urinating. Denies: Ambulating - Review of Systems General: Reports: Weakness. Denies: Fever, Chills Pulmonary: Reports: No Symptoms Cardiovascular: Reports: Dyspnea on Exertion, Edema. Denies: Chest Pain, Palpitations, Orthopnea, PND, Lightheadedness Gastrointestinal: Reports: No Symptoms - Patient Data Vitals - Most Recent: Last Vital Signs Temp 97.2 F 07/17/18 13:23 Pulse 78 07/17/18 13:23 Resp 16 07/17/18 13:23 BP 124/51 L 07/17/18 13:23 Pulse Ox 99 07/17/18 13:23 Weight - Most Recent: 198 lb 1 oz I&O - Last 24 Hours: Intake & Output 07/16/18 07/17/18 07/17/18 22:59 06:59 14:59 Intake Total 280 200 470 Output Total 1400 150 500 Balance -1120 50 -30 Lab Results Last 24 Hours: Laboratory Results - last 24 hr 07/16/18 07/16/18 07/17/18 Range/Units 05:00 17:30 05:09 WBC 4.2 L (4.5-11.0) K/uL RBC 2.56 L (3.30-5.50) M/uL Hgb 8.9 L 7.5 L (12.0-15.0) g/dL Hct 23.7 L (36.0-48.0) % MCV 93 (80-98) fL MCH 29 (27-31) pg MCHC 32 (32-36) % Plt Count 125 L (150-400) K/uL Neut % (Auto) 57 (36-66) % Lymph % (Auto) 25 (24-44) % Mercer % (Auto) 14 H (2-6) % Eos % (Auto) 3 (2-4) % Baso % (Auto) 1 (0-1) % PT (9.5-12.0) sec INR (0.80-1.20) Sodium (140-148) mmol/L Potassium (3.6-5.2) mmol/L Chloride (100-108) mmol/L Carbon Dioxide (21-32) mmol/L Anion Gap (5.0-14.0) mmol/L BUN (7-18) mg/dL Creatinine (0.6-1.0) mg/dL Est Cr Clr Drug Dosing mL/min Estimated GFR (MDRD) (>60) Glucose (74-106) mg/dL Calcium (8.5-10.1) mg/dL Total Bilirubin (0.2-1.0) mg/dL AST (15-37) U/L ALT (12-78) U/L Alkaline Phosphatase (46-116) U/L Ammonia (11-32) mmol/L Total Protein (6.4-8.2) g/dL Albumin (3.4-5.0) g/dL Globulin (2.3-3.5) g/dL Albumin/Globulin Ratio (1.2-2.2) Blood Type B POSITIVE Gel Antibody Screen Negative Crossmatch See Detail 07/17/18 07/17/18 07/17/18 Range/Units 05:09 05:09 05:09 WBC (4.5-11.0) K/uL RBC (3.30-5.50) M/uL Hgb (12.0-15.0) g/dL Hct (36.0-48.0) % MCV (80-98) fL MCH (27-31) pg MCHC (32-36) % Plt Count (150-400) K/uL Neut % (Auto) (36-66) % Lymph % (Auto) (24-44) % Mercer % (Auto) (2-6) % Eos % (Auto) (2-4) % Baso % (Auto) (0-1) % PT 14.4 H (9.5-12.0) sec INR 1.33 H (0.80-1.20) Sodium 145 (140-148) mmol/L Potassium 3.9 (3.6-5.2) mmol/L Chloride 112 H (100-108) mmol/L Carbon Dioxide 22 (21-32) mmol/L Anion Gap 14.9 H (5.0-14.0) mmol/L BUN 38 H (7-18) mg/dL Creatinine 2.4 H (0.6-1.0) mg/dL Est Cr Clr Drug Dosing 19.32 mL/min Estimated GFR (MDRD) 20 L (>60) Glucose 86 (74-106) mg/dL Calcium 8.5 (8.5-10.1) mg/dL Total Bilirubin 2.2 H (0.2-1.0) mg/dL AST 55 H (15-37) U/L ALT 31 (12-78) U/L Alkaline Phosphatase 132 H (46-116) U/L Ammonia 187 H (11-32) mmol/L Total Protein 6.5 (6.4-8.2) g/dL Albumin 2.0 L (3.4-5.0) g/dL Globulin 4.5 H (2.3-3.5) g/dL Albumin/Globulin Ratio 0.4 L (1.2-2.2) Blood Type Gel Antibody Screen Crossmatch Baj[facility] Results Last 24 Hours: Microbiology 07/15/18 11:51 Urine Culture - Final Urine, Clean Catch MIXED YOSELIN DAY 2 Med Orders - Current: Current Medications Dextrose (Glutose 15) 15 gm PO ONETIME PRN PRN Reason: Hypoglycemia Dextrose/Water (Dextrose 50% In Water) 50 ml IV ONETIME PRN PRN Reason: Hypoglycemia Enoxaparin Sodium (Lovenox) 30 mg SUBCUT DAILY@1800 [facility] Last Admin: 07/16/18 18:07 Dose: 30 mg Albumin Human (Albumin 25%) 25 gm in 100 mls @ 25 mls/hr IV DAILY [facility] Last Admin: 07/17/18 08:31 Dose: 25 mls/hr Insulin Human Lispro (Humalog) 0 unit SUBCUT QIDACANDBED [facility]; Protocol Last Admin: 07/17/18 13:26 Dose: Not Given Lactulose (Chronulac) 20 gm PO QID [facility] Last Admin: 07/17/18 10:24 Dose: 20 gm Morphine Sulfate (Morphine) 2 mg IVPUSH Q4H PRN PRN Reason: Pain Last Admin: 07/16/18 21:46 Dose: 2 mg Ondansetron HCl (Zofran) 4 mg IV Q4H PRN PRN Reason: Nausea/Vomiting Last Admin: 07/16/18 21:46 Dose: 4 mg Pantoprazole Sodium (Protonix) 40 mg PO ACBREAKFAST [facility] Last Admin: 07/17/18 08:23 Dose: 40 mg Potassium Chloride (Klor-Con M20) 20 meq PO DAILY [facility] Last Admin: 07/17/18 08:40 Dose: 20 meq Sertraline HCl (Zoloft) 100 mg PO DAILY [facility] Last Admin: 07/17/18 08:41 Dose: 100 mg Sodium Chloride (Saline Flush) 10 ml FLUSH ASDIRECTED PRN PRN Reason: Keep Vein Open Last Admin: 07/16/18 00:18 Dose: 10 ml Spironolactone (Aldactone) 50 mg PO DAILY [facility] Last Admin: 07/17/18 08:40 Dose: 50 mg Discontinued Medications Furosemide (Lasix) 60 mg IVPUSH ONETIME ONE Stop: 07/15/18 16:31 Last Admin: 07/15/18 16:49 Dose: 60 mg Furosemide (Lasix) 40 mg IVPUSH NOW ONE Stop: 07/16/18 14:01 Last Admin: 07/16/18 14:25 Dose: 40 mg Furosemide (Lasix) 60 mg IVPUSH NOW ONE Stop: 07/17/18 08:31 Last Admin: 07/17/18 11:27 Dose: 60 mg Furosemide (Lasix) 60 mg IVPUSH NOW ONE Stop: 07/17/18 11:31 Last Admin: 07/17/18 13:16 Dose: Not Given Lactulose (Chronulac) 20 gm PO BID [facility] Last Admin: 07/16/18 20:39 Dose: 20 gm Oxycodone HCl (Oxycodone) 5 mg PO Q4H PRN PRN Reason: Pain Last Admin: 07/16/18 11:56 Dose: 5 mg - Exam Quality Assessment: DVT Prophylaxis General: Alert, Oriented, Cooperative, Mild Distress Lungs: Clear to Auscultation, Normal Respiratory Effort Cardiovascular: Regular Rate, Regular Rhythm, No Murmurs GI/Abdominal Exam: Soft, Non-Tender, No Organomegaly, No Distention Extremities: Pedal Edema - Problem List Review Problem List Initiated/Reviewed/Updated: Yes - My Orders Last 24 Hours: My Active Orders 07/16/18 18:00 Albumin Human [Albumin 25%] 25 gm in 100 ml IV DAILY 07/17/18 08:14 Lactulose [Chronulac] 20 gm PO QID 07/17/18 08:16 Transfuse Red Blood Cells [COMM] Urgent 07/17/18 15:00 AMMONIA VENOUS [CHEM] Stat HEMOGLOBIN [HEME] Stat 07/17/18 16:30 GLUCOSE POC LAB TO COLLECT [POC] QIDACANDBED 07/17/18 21:00 GLUCOSE POC LAB TO COLLECT [POC] QIDACANDBED 07/18/18 05:00 CBC WITH AUTO DIFF [HEME] Timed COMPREHENSIVE METABOLIC PN,CMP [CHEM] Timed INR,PT,PROTHROMBIN TIME [COAG] Timed MAGNESIUM [CHEM] Timed 07/18/18 05:11 AMMONIA VENOUS [CHEM] AM 07/18/18 07:30 GLUCOSE POC LAB TO COLLECT [POC] QIDACANDBED 07/18/18 11:30 GLUCOSE POC LAB TO COLLECT [POC] QIDACANDBED 07/18/18 16:30 GLUCOSE POC LAB TO COLLECT [POC] QIDACANDBED 07/18/18 21:00 GLUCOSE POC LAB TO COLLECT [POC] QIDACANDBED 07/19/18 07:30 GLUCOSE POC LAB TO COLLECT [POC] QIDACANDBED 07/19/18 11:30 GLUCOSE POC LAB TO COLLECT [POC] QIDACANDBED 07/19/18 16:30 GLUCOSE POC LAB TO COLLECT [POC] QIDACANDBED 07/19/18 21:00 GLUCOSE POC LAB TO COLLECT [POC] QIDACANDBED 07/20/18 07:30 GLUCOSE POC LAB TO COLLECT [POC] QIDACANDBED 07/20/18 11:30 GLUCOSE POC LAB TO COLLECT [POC] QIDACANDBED - Plan Plan:: ASSESSMENT AND PLAN Hepatic encephalopathy-more clear today, surprisingly ammonia level elevated at 178. -Lactulose 20 mg by mouth 4 times a day -Recheck ammonia level this afternoon and in a.m. Peripheral edema-edema improved from admission, still open areas and weeping -Albumin 25 g IV daily -Furosemide 60 mg IV today -Reassess in a.m. 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 She did have a recent TIPS procedure and has not had significant difficulty with ascites since that time. Type 2 diabetes mellitus - currently on no medical therapy -4 times a day glucometers -Low-dose sliding scale Humulog Maintenance issues - DVT prophylaxis - Lovenox 30 mg subcutaneous daily - GI prophylaxis - PPI - Nutrition - low sodium - Ernandez catheter - not indicated CODE STATUS -FULL CODE Admission justification - patient will be referred observation status for initiation of antibiotics and physical therapy for strengthening Disposition - I would anticipate discharge to home versus care home dependent on overall strength Primary care physician - Dr. Trammell
[2018-07-17] MEDS ORDERED: Lidocaine 2% 30 ML, Alum Hydrox/Mag Hydrox/Simeth 30 ML, diphenhydrAMINE 75 MG MUCMEM PRN ×3 (13:56)
[2018-07-17] MEDS ORDERED: Benzocaine/Cetylpyridinium/Menthol Lozenge MUCMEM PRN (13:56)
[2018-07-17] MEDS: Enoxaparin 30 MG/0.3 ML Syringe SUBCUT SCH (18:09)
[2018-07-17] MEDS: Sodium Chloride 0.9% 10 ML Syringe FLUSH PRN (20:41)
[2018-07-17] MEDS: Ondansetron 4 MG/2 ML SDV IV PRN (20:41)
[2018-07-18] MEDS: Insulin Lispro 100 Unit/ML 3 ML KwikPen SUBCUT SCH ×4 (08:13→19:50)
[2018-07-18] MEDS: Lactulose Soln 10 GM/15 ML 15 ML UD Cup PO SCH ×3 (08:14→16:16)
[2018-07-18] MEDS: Pantoprazole 40 MG Tab.CR PO SCH (08:14)
[2018-07-18] MEDS: Sodium Chloride 0.9% 10 ML Syringe FLUSH PRN (08:15)
[2018-07-18] MEDS ORDERED: Sodium Chloride 0.9% 1,000 ML IV SCH ×2 (08:30→22:00)
[2018-07-18] MEDS: Spironolactone 25 MG Tab PO SCH (09:44)
[2018-07-18] MEDS: Sertraline 50 MG Tab PO SCH (09:44)
[2018-07-18] MEDS: Potassium Chloride 20 MEQ Tab.ER PO SCH (09:44)
--- NOTE | 2018-07-18 12:05 | CRLCR ---
INDICATION: Infiltrate TECHNIQUE: Chest 1 views COMPARISON: November 03, 2017 FINDINGS: Cardiovascular and mediastinum: Heart size and vasculature are normal in caliber and appearance. Lungs and pleural spaces: There are ill-defined perihilar infiltrates most prevalent on the right. Mild band of atelectasis is in the left mid lung. Remainder of the lungs and pleural spaces are clear. Bones and soft tissues: No significant findings. IMPRESSION: Nonspecific perihilar infiltrate suggesting pneumonia or bronchitis. Dictated by Shon Mariano MD @ Jul 18 2018 11:58AM Signed by Dr. Shon Mariano @ Jul 18 2018 12:03PM
[2018-07-18] MEDS ORDERED: Levofloxacin/Dextrose 5%-Water 750 MG in Premix Bag 1 BAG IV ONE (12:30)
--- NOTE | 2018-07-18 12:37 | CRLCT ---
INDICATION: WORSENING HEPATIC ENCEPHALOPATHY CT ABDOMEN AND PELVIS WITHOUT CONTRAST TECHNIQUE: Multidetector CT imaging was performed through the abdomen and pelvis without intravenous contrast administration. Coronal and sagittal reconstructions were generated. COMPARISON: 11/03/2017 CT abdomen and pelvis. FINDINGS: Lower chest: New small right pleural effusion and increased moderate sized left pleural effusion. Bibasilar lung atelectasis, increased from before. Liver: Unchanged diffuse nodularity of the liver contour consistent with cirrhosis. No obvious liver mass. New TIPS. Gallbladder and bile ducts: Status post cholecystectomy, as before. No biliary dilation identified. Pancreas: Unremarkable. Spleen: Unchanged mild splenomegaly. Adrenals: No nodules or masses. Kidneys, ureters, and urinary bladder: No definite urinary tract stones. Small calcification adjacent to the proximal right ureter is felt to represent a phlebolith in the right ovarian vein. No hydronephrosis. Ernandez catheter extending into the urinary bladder, which is collapsed. There is a cystocele as part of generalized inferior prolapse of the pelvic floor. Gastrointestinal tract: Evaluation limited by motion, ascites, and lack of IV contrast. Mild increase and gas within small bowel loops and the colon, favored to represent a mild ileus. No definite bowel wall thickening. Several diverticula of the sigmoid colon, without evidence of diverticulitis. Vascular structures: Aortoiliac atherosclerotic calcifications. Peritoneum: Large amount of ascites throughout the abdomen and pelvis, similar to the previous exam. Ascites again extends into an umbilical hernia. No free air identified. Lymph nodes: No pathologically enlarged nodes identified. Reproductive organs: No pelvic masses. Bones: Spinal degenerative changes. IMPRESSION: 1. Cirrhosis with portal venous hypertension, splenomegaly, and a large amount of ascites throughout the abdomen and pelvis. Interval TIPS placement. 2. Probable mild ileus. 3. Sigmoid colon diverticulosis without evidence of diverticulitis. 4. Bilateral pleural effusions, largest on the left, and bibasilar lung atelectasis. 5. Nonacute additional findings as detailed above. JOHANNA CARSON MD [employer] [employer] Dictated by Heriberto Carson MD @ 07/18/2018 12:34:25 PM Dictated by: Heriberto Carson MD @ 07/18/2018 12:36:37 (Electronically Signed)
[2018-07-18] MEDS: Meropenem 1 GM in Sodium Chloride 0.9% 100 ML IV SCH ×2 (13:24→21:36)
--- NOTE | 2018-07-18 13:59 | PCM.PN ---
- General Info Date of Service: 07/18/18 Subjective Update: Ms. Keller has unfortunately taken a turn for the worse over last 24 hours. Ammonia level is further elevated and she is essentially unresponsive. Vital signs have otherwise been stable and oxygenation is within desired range. There have been no significant temperature elevations, white blood cell count remains within normal range. Bilirubin and creatinine are both increased from yesterday. She is unable to provide information concerning symptoms or review of systems. - Patient Data Vitals - Most Recent: Last Vital Signs Temp 97.3 F 07/18/18 12:00 Pulse 71 07/18/18 12:00 Resp 16 07/18/18 12:00 BP 100/52 L 07/18/18 12:53 Pulse Ox 98 07/18/18 12:00 Weight - Most Recent: 198 lb 1 oz I&O - Last 24 Hours: Intake & Output 07/17/18 07/18/18 07/18/18 22:59 06:59 14:59 Intake Total 60 Output Total 0 Balance 60 Lab Results Last 24 Hours: Laboratory Results - last 24 hr 07/17/18 07/17/18 07/18/18 Range/Units 14:59 14:59 04:50 WBC 4.4 L (4.5-11.0) K/uL RBC 3.00 L (3.30-5.50) M/uL Hgb 9.3 L 8.7 L (12.0-15.0) g/dL Hct 27.5 L (36.0-48.0) % MCV 92 (80-98) fL MCH 29 (27-31) pg MCHC 32 (32-36) % Plt Count 119 L (150-400) K/uL Neut % (Auto) 65 (36-66) % Lymph % (Auto) 20 L (24-44) % [place] % (Auto) 14 H (2-6) % Eos % (Auto) 1 L (2-4) % Baso % (Auto) 0 (0-1) % PT (9.5-12.0) sec INR (0.80-1.20) Sodium (140-148) mmol/L Potassium (3.6-5.2) mmol/L Chloride (100-108) mmol/L Carbon Dioxide (21-32) mmol/L Anion Gap (5.0-14.0) mmol/L BUN (7-18) mg/dL Creatinine (0.6-1.0) mg/dL Est Cr Clr Drug Dosing mL/min Estimated GFR (MDRD) (>60) Glucose (74-106) mg/dL Calcium (8.5-10.1) mg/dL Magnesium (1.8-2.4) mg/dL Total Bilirubin (0.2-1.0) mg/dL AST (15-37) U/L ALT (12-78) U/L Alkaline Phosphatase (46-116) U/L Ammonia 162 H (11-32) mmol/L Total Protein (6.4-8.2) g/dL Albumin (3.4-5.0) g/dL Globulin (2.3-3.5) g/dL Albumin/Globulin Ratio (1.2-2.2) Urine Color Urine Appearance Urine pH (4.5-8.0) Ur Specific [place] (1.008-1.030) Urine Protein (NEGATIVE) mg/dL Urine Glucose (UA) (NEGATIVE) mg/dL Urine Ketones (NEGATIVE) mg/dL Urine Occult Blood (NEGATIVE) Urine Nitrite (NEGATIVE) Urine Bilirubin (NEGATIVE) Urine Urobilinogen (NORMAL) mg/dL Ur Leukocyte Esterase (NEGATIVE) Urine RBC (0-5) Urine WBC (0-5) Ur Epithelial Cells Amorphous Sediment Urine Bacteria Urine Mucus Urine Other 07/18/18 07/18/18 07/18/18 Range/Units 04:50 04:50 04:50 WBC (4.5-11.0) K/uL RBC (3.30-5.50) M/uL Hgb (12.0-15.0) g/dL Hct (36.0-48.0) % MCV (80-98) fL MCH (27-31) pg MCHC (32-36) % Plt Count (150-400) K/uL Neut % (Auto) (36-66) % Lymph % (Auto) (24-44) % [place] % (Auto) (2-6) % Eos % (Auto) (2-4) % Baso % (Auto) (0-1) % PT 14.1 H (9.5-12.0) sec INR 1.30 H (0.80-1.20) Sodium 145 (140-148) mmol/L Potassium 4.1 (3.6-5.2) mmol/L Chloride 111 H (100-108) mmol/L Carbon Dioxide 22 (21-32) mmol/L Anion Gap 16.1 H (5.0-14.0) mmol/L BUN 37 H (7-18) mg/dL Creatinine 2.7 H (0.6-1.0) mg/dL Est Cr Clr Drug Dosing 17.18 mL/min Estimated GFR (MDRD) 18 L (>60) Glucose 109 H (74-106) mg/dL Calcium 8.7 (8.5-10.1) mg/dL Magnesium 1.8 (1.8-2.4) mg/dL Total Bilirubin 2.7 H (0.2-1.0) mg/dL AST 57 H (15-37) U/L ALT 30 (12-78) U/L Alkaline Phosphatase 132 H (46-116) U/L Ammonia 214 H (11-32) mmol/L Total Protein 6.8 (6.4-8.2) g/dL Albumin 2.3 L (3.4-5.0) g/dL Globulin 4.5 H (2.3-3.5) g/dL Albumin/Globulin Ratio 0.5 L (1.2-2.2) Urine Color Urine Appearance Urine pH (4.5-8.0) Ur Specific [place] (1.008-1.030) Urine Protein (NEGATIVE) mg/dL Urine Glucose (UA) (NEGATIVE) mg/dL Urine Ketones (NEGATIVE) mg/dL Urine Occult Blood (NEGATIVE) Urine Nitrite (NEGATIVE) Urine Bilirubin (NEGATIVE) Urine Urobilinogen (NORMAL) mg/dL Ur Leukocyte Esterase (NEGATIVE) Urine RBC (0-5) Urine WBC (0-5) Ur Epithelial Cells Amorphous Sediment Urine Bacteria Urine Mucus Urine Other 07/18/18 Range/Units 11:52 WBC (4.5-11.0) K/uL RBC (3.30-5.50) M/uL Hgb (12.0-15.0) g/dL Hct (36.0-48.0) % MCV (80-98) fL MCH (27-31) pg MCHC (32-36) % Plt Count (150-400) K/uL Neut % (Auto) (36-66) % Lymph % (Auto) (24-44) % [place] % (Auto) (2-6) % Eos % (Auto) (2-4) % Baso % (Auto) (0-1) % PT (9.5-12.0) sec INR (0.80-1.20) Sodium (140-148) mmol/L Potassium (3.6-5.2) mmol/L Chloride (100-108) mmol/L Carbon Dioxide (21-32) mmol/L Anion Gap (5.0-14.0) mmol/L BUN (7-18) mg/dL Creatinine (0.6-1.0) mg/dL Est Cr Clr Drug Dosing mL/min Estimated GFR (MDRD) (>60) Glucose (74-106) mg/dL Calcium (8.5-10.1) mg/dL Magnesium (1.8-2.4) mg/dL Total Bilirubin (0.2-1.0) mg/dL AST (15-37) U/L ALT (12-78) U/L Alkaline Phosphatase (46-116) U/L Ammonia (11-32) mmol/L Total Protein (6.4-8.2) g/dL Albumin (3.4-5.0) g/dL Globulin (2.3-3.5) g/dL Albumin/Globulin Ratio (1.2-2.2) Urine Color Yellow Urine Appearance Slightly cloudy Urine pH 5.0 (4.5-8.0) Ur Specific [place] 1.015 (1.008-1.030) Urine Protein Negative (NEGATIVE) mg/dL Urine Glucose (UA) Normal (NEGATIVE) mg/dL Urine Ketones Negative (NEGATIVE) mg/dL Urine Occult Blood Negative (NEGATIVE) Urine Nitrite Negative (NEGATIVE) Urine Bilirubin Negative (NEGATIVE) Urine Urobilinogen Normal (NORMAL) mg/dL Ur Leukocyte Esterase Negative (NEGATIVE) Urine RBC 0-5 (0-5) Urine WBC 0-5 (0-5) Ur Epithelial Cells Few Amorphous Sediment Few Urine Bacteria Not seen Urine Mucus Not seen Urine Other Med Orders - Current: Current Medications Benzocaine/Menthol (Cepacol Sore Throat) 1 lozenge MUCMEM Q1H PRN PRN Reason: Other Lidocaine HCl 30 ml/ Al Hydroxide/Mg Hydroxide 30 ml/Diphenhydramine HCl 75 mg 0 ml MUCMEM Q4H PRN PRN Reason: MOUTH CARE Dextrose (Glutose 15) 15 gm PO ONETIME PRN PRN Reason: Hypoglycemia Dextrose/Water (Dextrose 50% In Water) 50 ml IV ONETIME PRN PRN Reason: Hypoglycemia Enoxaparin Sodium (Lovenox) 30 mg SUBCUT DAILY@1800 [facility] Last Admin: 07/17/18 18:09 Dose: 30 mg Albumin Human (Albumin 25%) 25 gm in 100 mls @ 25 mls/hr IV DAILY [facility] Last Admin: 07/18/18 08:18 Dose: 25 mls/hr Sodium Chloride (Normal Saline) 1,000 mls @ 125 mls/hr IV ASDIRECTED [facility] Meropenem 1 gm/ Sodium (Chloride) 100 mls @ 200 mls/hr IV Q8H [facility] Last Admin: 07/18/18 13:24 Dose: 200 mls/hr Levofloxacin/Dextrose 750 mg/ (Premix) 150 mls @ 100 mls/hr IV ONETIME ONE Stop: 07/18/18 13:59 Levofloxacin/Dextrose 500 mg/ (Premix) 100 mls @ 100 mls/hr IV Q48H [facility] Insulin Human Lispro (Humalog) 0 unit SUBCUT QIDACANDBED [facility]; Protocol Last Admin: 07/18/18 12:49 Dose: Not Given Lactobacillus Rhamnosus (Culturelle) 1 cap PO BID [facility] Lactulose (Chronulac) 20 gm PO QID [facility] Last Admin: 07/18/18 09:45 Dose: Not Given Morphine Sulfate (Morphine) 2 mg IVPUSH Q4H PRN PRN Reason: Pain Last Admin: 07/16/18 21:46 Dose: 2 mg Ondansetron HCl (Zofran) 4 mg IV Q4H PRN PRN Reason: Nausea/Vomiting Last Admin: 07/17/18 20:41 Dose: 4 mg Pantoprazole Sodium (Protonix) 40 mg PO ACBREAKFAST [facility] Last Admin: 07/18/18 08:14 Dose: Not Given Potassium Chloride (Klor-Con M20) 20 meq PO DAILY [facility] Last Admin: 07/18/18 09:44 Dose: Not Given Sertraline HCl (Zoloft) 100 mg PO DAILY [facility] Last Admin: 07/18/18 09:44 Dose: Not Given Sodium Chloride (Saline Flush) 10 ml FLUSH ASDIRECTED PRN PRN Reason: Keep Vein Open Last Admin: 07/18/18 08:15 Dose: 10 ml Spironolactone (Aldactone) 50 mg PO DAILY [facility] Last Admin: 07/18/18 09:44 Dose: Not Given Discontinued Medications Furosemide (Lasix) 60 mg IVPUSH ONETIME ONE Stop: 07/15/18 16:31 Last Admin: 07/15/18 16:49 Dose: 60 mg Furosemide (Lasix) 40 mg IVPUSH NOW ONE Stop: 07/16/18 14:01 Last Admin: 07/16/18 14:25 Dose: 40 mg Furosemide (Lasix) 60 mg IVPUSH NOW ONE Stop: 07/17/18 08:31 Last Admin: 07/17/18 11:27 Dose: 60 mg Furosemide (Lasix) 60 mg IVPUSH NOW ONE Stop: 07/17/18 11:31 Last Admin: 07/17/18 13:16 Dose: Not Given Sodium Chloride (Normal Saline) 1,000 mls @ 500 mls/hr IV ASDIRECTED [facility] Stop: 07/18/18 10:31 Last Admin: 07/18/18 09:11 Dose: 500 mls/hr Lactulose (Chronulac) 20 gm PO BID [facility] Last Admin: 07/16/18 20:39 Dose: 20 gm Oxycodone HCl (Oxycodone) 5 mg PO Q4H PRN PRN Reason: Pain Last Admin: 07/16/18 11:56 Dose: 5 mg - Exam Quality Assessment: Urine Catheter, DVT Prophylaxis General: Obtunded Lungs: Clear to Auscultation, Normal Respiratory Effort Cardiovascular: Regular Rate, Regular Rhythm, No Murmurs GI/Abdominal Exam: Soft, Non-Tender, No Organomegaly, No Distention Extremities: Non-Tender, No Pedal Edema, Other (Edema and erythema lower extremities has improved significantly from admission) Skin: Warm, Dry - Problem List Review Problem List Initiated/Reviewed/Updated: Yes - My Orders Last 24 Hours: My Active Orders 07/17/18 13:56 Benzocaine/Cetylpyrd/Menthol [Cepacol Sore Throat] 1 lozenge MUCMEM Q1H PRN Lidocaine 2% [Xylocaine 2% Viscous] 30 ml Alum Hydrox/Mag Hydrox/Simeth [Mag-Al Plus] 30 ml diphenhydrAMINE [Benadryl] 75 mg MUCMEM Q4H 07/18/18 10:30 Sodium Chloride 0.9% [Normal Saline] 1,000 ml IV ASDIRECTED 07/18/18 12:10 Blood Culture x2 Reflex Set [OM.PC] Urgent 07/18/18 12:11 Dietary Supplements [RC] BIDMEALS 07/18/18 12:15 Dietary Supplements [RC] BIDMEALS 07/18/18 12:20 CULTURE BLOOD [BC] Urgent 07/18/18 12:26 CULTURE BLOOD [BC] Urgent 07/18/18 12:30 Levofloxacin/Dextrose 5%-Water [Levaquin in D5W 750 MG/150 ML] 750 mg Premix Bag 1 bag IV ONETIME 07/18/18 13:06 Consult to Physician [CONS] Urgent US Guidance Paracentesis NC [US] Stat 07/18/18 13:07 Notify Provider Consults [RC] ASDIRECTED 07/18/18 13:23 Patient Status [ADT] Routine 07/18/18 13:24 Cardiac Monitoring [RC] .As Directed Pulse Oximetry Continuous Monitoring [OM.PC] Routine 07/18/18 13:25 Overnight Pulse Oximetry [RC] Click to Edit 07/18/18 14:00 Meropenem [Merrem] 1 gm Sodium Chloride 0.9% [Normal Saline] 100 ml IV Q8H 07/18/18 16:30 GLUCOSE POC LAB TO COLLECT [POC] QIDACANDBED 07/18/18 17:00 AMMONIA VENOUS [CHEM] Stat HGB [HEMOGLOBIN] [HEME] Stat 07/18/18 21:00 GLUCOSE POC LAB TO COLLECT [POC] QIDACANDBED Lactobacillus Rhamnosus GG [Culturelle] 1 cap PO BID 07/19/18 05:00 CBC WITH AUTO DIFF [HEME] Timed COMPREHENSIVE METABOLIC PN,CMP [CHEM] Timed INR,PT,PROTHROMBIN TIME [COAG] Timed 07/19/18 05:11 AMMONIA VENOUS [CHEM] AM 07/19/18 07:30 GLUCOSE POC LAB TO COLLECT [POC] QIDACANDBED 07/19/18 11:30 GLUCOSE POC LAB TO COLLECT [POC] QIDACANDBED 07/19/18 16:30 GLUCOSE POC LAB TO COLLECT [POC] QIDACANDBED 07/19/18 21:00 GLUCOSE POC LAB TO COLLECT [POC] QIDACANDBED 07/20/18 07:30 GLUCOSE POC LAB TO COLLECT [POC] QIDACANDBED 07/20/18 11:30 GLUCOSE POC LAB TO COLLECT [POC] QIDACANDBED 07/20/18 12:00 Levofloxacin/Dextrose 5%-Water [Levaquin in D5W 500 MG/100 ML] 500 mg Premix Bag 1 bag IV Q48H - Plan Plan:: ASSESSMENT AND PLAN Hepatic encephalopathy-worse since yesterday, obtunded with further increase in ammonia level. Likely that some of this is secondary to intravascular volume depletion. Evaluation thus far shown evidence of possible pneumonia. Urinalysis is clear with no evidence of underlying infection. CT scan of the abdomen and pelvis shows a large amount ascites despite her recent TIPS procedure. Evaluation for spontaneous bacterial peritonitis is underway, diagnostic her centesis to be performed by Dr. Waterman. -Transfer to the ICU for more intense monitoring and management -Blood and peritoneal cultures pending -IV fluids for hydration -Continue daily albumin infusion -IV meropenem and levofloxacin pending culture results, this should provide coverage for both possible pneumonia as well as S BP -Lactulose 20 mg by mouth 4 times a day -Recheck ammonia level this afternoon and in a.m. Peripheral edema-edema has essentially resolved since admission -Albumin 25 g IV daily -Hold furosemide -Reassess in a.m. 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 Despite recent TIPS procedure she is noted to have a large amount of ascites by CT scan Type 2 diabetes mellitus - currently on no medical therapy -4 times a day glucometers -Low-dose sliding scale Humulog Maintenance issues - DVT prophylaxis - Lovenox 30 mg subcutaneous daily - GI prophylaxis - PPI - Nutrition - low sodium - Ernandez catheter - not indicated CODE STATUS -FULL CODE Admission justification - patient will be referred observation status for initiation of antibiotics and physical therapy for strengthening Disposition - I would anticipate discharge to home versus care home dependent on overall strength Primary care physician - Dr. Trammell
--- NOTE | 2018-07-18 15:03 | OR ---
DATE OF PROCEDURE: 07/18/2018 SURGEON: Jensen Waterman MD PROCEDURE: Diagnostic paracentesis. COMPLICATIONS: None. POLEYARD SUPERVISOR: None. ANESTHESIA: Local. RISKS: Risks, benefits, alternatives, and limitations including but not limited to infection, bleeding, and injury to intestines and other abdominal structures were explained to the patient's family, and they wished to proceed. FINDINGS: Removal of approximately 60 mL of straw-colored fluid. PROCEDURE IN DETAIL: The patient was placed in supine position. The area with the most fluid was marked with ultrasound previously. The skin was prepped and draped and anesthetized with lidocaine. A single rebeka was created in the skin. The sheath was introduced and advanced as the needle was withdrawn. Approximately 60 mL of straw-colored fluid was removed. The wound was closed with [id number] stitching. This fluid was sent for culture. The patient tolerated the procedure well. Jensen Waterman MD /[id number]
[2018-07-18] MEDS: Enoxaparin 30 MG/0.3 ML Syringe SUBCUT SCH (18:30)
[2018-07-18] MEDS: Lactobacillus Rhamnosus GG (Probiotic) Cap PO SCH (20:11)
[2018-07-18] MEDS ORDERED: Lactulose Soln 10 GM/15 ML 15 ML UD Cup SCH (22:00)
[2018-07-18] MEDS: Sodium Chloride 0.9% 1,000 ML IV SCH (22:23)
--- NOTE | 2018-07-19 02:50 | CRLCR ---
INDICATION: Hemoptysis TECHNIQUE: Chest radiograph 1 view COMPARISON: 07/18/2018 FINDINGS: Moderate degradation of image quality noted due to body habitus. Mediastinum: Small lung volumes are present with mild left basilar atelectasis. Pulmonary vascular congestion and enlargement of the central pulmonary vessels are noted without interval change. The heart silhouette is normal in size and morphology. Lung: See above. No pneumothorax is identified. Musculoskeletal: Unremarkable for age. IMPRESSION: 1. There has been no significant interval changes. Dictated by Catrachito Rodríguez MD @ 07/19/2018 2:48:20 AM Dictated by: Catrachito Rodríguez MD @ 07/19/2018 02:48:25 (Electronically Signed)
[2018-07-19] MEDS: Meropenem 1 GM in Sodium Chloride 0.9% 100 ML IV SCH ×3 (05:51→22:13)
[2018-07-19] MEDS: Lactulose Soln 10 GM/15 ML 15 ML UD Cup PO SCH ×5 (05:51→22:13)
[2018-07-19] MEDS: Sodium Chloride 0.9% 1,000 ML IV SCH ×2 (06:57→14:50)
[2018-07-19] MEDS: Insulin Lispro 100 Unit/ML 3 ML KwikPen SUBCUT SCH ×4 (07:51→22:12)
[2018-07-19] MEDS: Pantoprazole 40 MG Tab.CR PO SCH (09:14)
[2018-07-19] MEDS: Sertraline 50 MG Tab PO SCH (09:36)
[2018-07-19] MEDS: Lactobacillus Rhamnosus GG (Probiotic) Cap PO SCH ×2 (09:36→20:49)
[2018-07-19] MEDS: Spironolactone 25 MG Tab PO SCH (09:37)
[2018-07-19] MEDS: Potassium Chloride 20 MEQ Tab.ER PO SCH (09:37)
--- NOTE | 2018-07-19 12:12 | PCM.PN ---
- General Info Date of Service: 07/19/18 Subjective Update: Ms. Keller has improved since yesterday, ammonia level is now down to mid 80s , from over 200 yesterday. She is no longer obtunded, but still somewhat lethargic. She is able to answer specific questions and is more alert. Renal function as well as bilirubin level have improved modestly since yesterday. Urine output remains low but stable with current IV fluids. Diagnostic paracentesis performed yesterday, at this time findings are not consistent with spontaneous bacterial peritonitis, culture pending. - Review of Systems General: Reports: Weakness. Denies: Fever, Chills Pulmonary: Reports: No Symptoms Cardiovascular: Reports: No Symptoms Gastrointestinal: Reports: No Symptoms - Patient Data Vitals - Most Recent: Last Vital Signs Temp 98.9 F 07/19/18 09:00 Pulse 85 07/19/18 11:00 Resp 23 H 07/19/18 11:00 BP 128/46 L 07/19/18 11:00 Pulse Ox 96 07/19/18 11:00 Weight - Most Recent: 232 lb 2.348 oz I&O - Last 24 Hours: Intake & Output 07/18/18 07/19/18 07/19/18 22:59 06:59 14:59 Intake Total 1511 2814 Output Total 618 249 170 Balance 893 2565 -170 Lab Results Last 24 Hours: Laboratory Results - last 24 hr 07/18/18 07/18/18 07/18/18 Range/Units 16:15 17:00 17:00 WBC (4.5-11.0) K/uL RBC (3.30-5.50) M/uL Hgb 8.5 L (12.0-15.0) g/dL Hct (36.0-48.0) % MCV (80-98) fL MCH (27-31) pg MCHC (32-36) % Plt Count (150-400) K/uL Neut % (Auto) (36-66) % Lymph % (Auto) (24-44) % [place] % (Auto) (2-6) % Eos % (Auto) (2-4) % Baso % (Auto) (0-1) % PT (9.5-12.0) sec INR (0.80-1.20) Sodium (140-148) mmol/L Potassium (3.6-5.2) mmol/L Chloride (100-108) mmol/L Carbon Dioxide (21-32) mmol/L Anion Gap (5.0-14.0) mmol/L BUN (7-18) mg/dL Creatinine (0.6-1.0) mg/dL Est Cr Clr Drug Dosing mL/min Estimated GFR (MDRD) (>60) Glucose (74-106) mg/dL Calcium (8.5-10.1) mg/dL Total Bilirubin (0.2-1.0) mg/dL AST (15-37) U/L ALT (12-78) U/L Alkaline Phosphatase (46-116) U/L Ammonia 139 H (11-32) mmol/L Total Protein (6.4-8.2) g/dL Albumin (3.4-5.0) g/dL Globulin (2.3-3.5) g/dL Albumin/Globulin Ratio (1.2-2.2) Fluid Type Peritoneal fluid Fluid WBC 75 /ul Fluid RBC 302 /ul Fluid Diff Comment Peritoneal fluid Fluid Mononuclear Cell 76 % Fl Polymorphonucl Cell 24 % 07/19/18 07/19/18 07/19/18 Range/Units 04:50 04:50 04:50 WBC 4.7 (4.5-11.0) K/uL RBC 2.99 L (3.30-5.50) M/uL Hgb 8.8 L (12.0-15.0) g/dL Hct 28.0 L (36.0-48.0) % MCV 94 (80-98) fL MCH 29 (27-31) pg MCHC 31 L (32-36) % Plt Count 119 L (150-400) K/uL Neut % (Auto) 66 (36-66) % Lymph % (Auto) 18 L (24-44) % [place] % (Auto) 14 H (2-6) % Eos % (Auto) 2 (2-4) % Baso % (Auto) 0 (0-1) % PT 15.2 H (9.5-12.0) sec INR 1.41 H (0.80-1.20) Sodium 146 (140-148) mmol/L Potassium 3.8 (3.6-5.2) mmol/L Chloride 114 H (100-108) mmol/L Carbon Dioxide 21 (21-32) mmol/L Anion Gap 14.8 H (5.0-14.0) mmol/L BUN 40 H (7-18) mg/dL Creatinine 2.3 H (0.6-1.0) mg/dL Est Cr Clr Drug Dosing 20.16 mL/min Estimated GFR (MDRD) 21 L (>60) Glucose 92 (74-106) mg/dL Calcium 8.4 L (8.5-10.1) mg/dL Total Bilirubin 2.4 H (0.2-1.0) mg/dL AST 55 H (15-37) U/L ALT 27 (12-78) U/L Alkaline Phosphatase 119 H (46-116) U/L Ammonia (11-32) mmol/L Total Protein 6.5 (6.4-8.2) g/dL Albumin 2.2 L (3.4-5.0) g/dL Globulin 4.3 H (2.3-3.5) g/dL Albumin/Globulin Ratio 0.5 L (1.2-2.2) Fluid Type Fluid WBC /ul Fluid RBC /ul Fluid Diff Comment Fluid Mononuclear Cell % Fl Polymorphonucl Cell % 07/19/18 Range/Units 04:50 WBC (4.5-11.0) K/uL RBC (3.30-5.50) M/uL Hgb (12.0-15.0) g/dL Hct (36.0-48.0) % MCV (80-98) fL MCH (27-31) pg MCHC (32-36) % Plt Count (150-400) K/uL Neut % (Auto) (36-66) % Lymph % (Auto) (24-44) % [place] % (Auto) (2-6) % Eos % (Auto) (2-4) % Baso % (Auto) (0-1) % PT (9.5-12.0) sec INR (0.80-1.20) Sodium (140-148) mmol/L Potassium (3.6-5.2) mmol/L Chloride (100-108) mmol/L Carbon Dioxide (21-32) mmol/L Anion Gap (5.0-14.0) mmol/L BUN (7-18) mg/dL Creatinine (0.6-1.0) mg/dL Est Cr Clr Drug Dosing mL/min Estimated GFR (MDRD) (>60) Glucose (74-106) mg/dL Calcium (8.5-10.1) mg/dL Total Bilirubin (0.2-1.0) mg/dL AST (15-37) U/L ALT (12-78) U/L Alkaline Phosphatase (46-116) U/L Ammonia 84 H (11-32) mmol/L Total Protein (6.4-8.2) g/dL Albumin (3.4-5.0) g/dL Globulin (2.3-3.5) g/dL Albumin/Globulin Ratio (1.2-2.2) Fluid Type Fluid WBC /ul Fluid RBC /ul Fluid Diff Comment Fluid Mononuclear Cell % Fl Polymorphonucl Cell % Baljit Results Last 24 Hours: Microbiology 07/18/18 14:50 Gram Stain - Final Peritoneal Fluid Med Orders - Current: Current Medications Benzocaine/Menthol (Cepacol Sore Throat) 1 lozenge MUCMEM Q1H PRN PRN Reason: Other Lidocaine HCl 30 ml/ Al Hydroxide/Mg Hydroxide 30 ml/Diphenhydramine HCl 75 mg 0 ml MUCMEM Q4H PRN PRN Reason: MOUTH CARE Dextrose (Glutose 15) 15 gm PO ONETIME PRN PRN Reason: Hypoglycemia Dextrose/Water (Dextrose 50% In Water) 50 ml IV ONETIME PRN PRN Reason: Hypoglycemia Albumin Human (Albumin 25%) 25 gm in 100 mls @ 25 mls/hr IV DAILY [facility] Last Admin: 07/19/18 09:26 Dose: 25 mls/hr Meropenem 1 gm/ Sodium (Chloride) 100 mls @ 200 mls/hr IV Q8H [facility] Last Admin: 07/19/18 05:51 Dose: 200 mls/hr Levofloxacin/Dextrose 500 mg/ (Premix) 100 mls @ 100 mls/hr IV Q48H [facility] Sodium Chloride (Normal Saline) 1,000 mls @ 75 mls/hr IV ASDIRECTED [facility] Insulin Human Lispro (Humalog) 0 unit SUBCUT QIDACANDBED [facility]; Protocol Last Admin: 07/19/18 11:48 Dose: Not Given Lactobacillus Rhamnosus (Culturelle) 1 cap PO BID [facility] Last Admin: 07/19/18 09:36 Dose: 1 cap Lactulose (Chronulac) 20 gm PO QID [facility] Last Admin: 07/19/18 09:16 Dose: 20 gm Morphine Sulfate (Morphine) 2 mg IVPUSH Q4H PRN PRN Reason: Pain Last Admin: 07/16/18 21:46 Dose: 2 mg Ondansetron HCl (Zofran) 4 mg IV Q4H PRN PRN Reason: Nausea/Vomiting Last Admin: 07/17/18 20:41 Dose: 4 mg Pantoprazole Sodium (Protonix) 40 mg PO ACBREAKFAST [facility] Last Admin: 07/19/18 09:14 Dose: 40 mg Potassium Chloride (Klor-Con M20) 20 meq PO DAILY [facility] Last Admin: 07/19/18 09:37 Dose: 20 meq Sertraline HCl (Zoloft) 100 mg PO DAILY [facility] Last Admin: 07/19/18 09:36 Dose: 100 mg Sodium Chloride (Saline Flush) 10 ml FLUSH ASDIRECTED PRN PRN Reason: Keep Vein Open Last Admin: 07/18/18 08:15 Dose: 10 ml Spironolactone (Aldactone) 50 mg PO DAILY [facility] Last Admin: 07/19/18 09:37 Dose: 50 mg Discontinued Medications Enoxaparin Sodium (Lovenox) 30 mg SUBCUT DAILY@1800 [facility] Last Admin: 07/18/18 18:30 Dose: 30 mg Furosemide (Lasix) 60 mg IVPUSH ONETIME ONE Stop: 07/15/18 16:31 Last Admin: 07/15/18 16:49 Dose: 60 mg Furosemide (Lasix) 40 mg IVPUSH NOW ONE Stop: 07/16/18 14:01 Last Admin: 07/16/18 14:25 Dose: 40 mg Furosemide (Lasix) 60 mg IVPUSH NOW ONE Stop: 07/17/18 08:31 Last Admin: 07/17/18 11:27 Dose: 60 mg Furosemide (Lasix) 60 mg IVPUSH NOW ONE Stop: 07/17/18 11:31 Last Admin: 07/17/18 13:16 Dose: Not Given Sodium Chloride (Normal Saline) 1,000 mls @ 500 mls/hr IV ASDIRECTED [facility] Stop: 07/18/18 10:31 Last Admin: 07/18/18 09:11 Dose: 500 mls/hr Sodium Chloride (Normal Saline) 1,000 mls @ 125 mls/hr IV ASDIRECTED [facility] Last Admin: 07/19/18 06:57 Dose: 125 mls/hr Levofloxacin/Dextrose 750 mg/ (Premix) 150 mls @ 100 mls/hr IV ONETIME ONE Stop: 07/18/18 13:59 Last Admin: 07/18/18 15:13 Dose: 100 mls/hr Sodium Chloride (Normal Saline) 1,000 mls @ 500 mls/hr IV ASDIRECTED [facility] Stop: 07/19/18 00:00 Last Admin: 07/18/18 22:08 Dose: 500 mls/hr Lactulose (Chronulac) 20 gm PO BID [facility] Last Admin: 07/16/18 20:39 Dose: 20 gm Lactulose (Chronulac) 20 gm PO QID [facility] Last Admin: 07/18/18 16:16 Dose: Not Given Lactulose (Chronulac) 20 gm .XX QID [facility] Last Admin: 07/18/18 22:05 Dose: 20 gm Oxycodone HCl (Oxycodone) 5 mg PO Q4H PRN PRN Reason: Pain Last Admin: 07/16/18 11:56 Dose: 5 mg - Exam General: Alert, Cooperative, No Acute Distress Lungs: Clear to Auscultation, Normal Respiratory Effort Cardiovascular: Regular Rate, Regular Rhythm, No Murmurs GI/Abdominal Exam: Soft, Non-Tender, No Organomegaly, No Distention Extremities: Non-Tender, No Pedal Edema - Problem List Review Problem List Initiated/Reviewed/Updated: Yes - My Orders Last 24 Hours: My Active Orders 07/18/18 12:10 Blood Culture x2 Reflex Set [OM.PC] Urgent 07/18/18 12:11 Dietary Supplements [RC] BIDMEALS 07/18/18 12:20 CULTURE BLOOD [BC] Urgent 07/18/18 12:26 CULTURE BLOOD [BC] Urgent 07/18/18 13:06 Consult to Physician [CONS] Urgent US Guidance Paracentesis NC [US] Stat 07/18/18 13:07 Notify Provider Consults [RC] ASDIRECTED 07/18/18 13:23 Patient Status [ADT] Routine 07/18/18 13:24 Cardiac Monitoring [RC] Q6H Pulse Oximetry Continuous Monitoring [OM.PC] Routine 07/18/18 13:25 Overnight Pulse Oximetry [RC] Click to Edit 07/18/18 13:55 Urinary Catheter Assessment [RC] Q12H 07/18/18 14:00 Meropenem [Merrem] 1 gm Sodium Chloride 0.9% [Normal Saline] 100 ml IV Q8H 07/18/18 21:00 Lactobacillus Rhamnosus GG [Culturelle] 1 cap PO BID 07/19/18 06:00 Lactulose [Chronulac] 20 gm PO QID 07/19/18 11:35 Chest wo Cont [CT] Stat 07/19/18 12:15 Sodium Chloride 0.9% @ 75 MLS/HR(1000ml) Sodium Chloride 0.9% [Normal Saline] 1 ,000 ml IV ASDIRECTED 07/20/18 05:00 CBC WITH AUTO DIFF [HEME] Timed COMPREHENSIVE METABOLIC PN,CMP [CHEM] Timed INR,PT,PROTHROMBIN TIME [COAG] Timed MAGNESIUM [CHEM] Timed 07/20/18 05:11 AMMONIA VENOUS [CHEM] AM 07/20/18 07:30 GLUCOSE POC LAB TO COLLECT [POC] QIDACANDBED 07/20/18 11:30 GLUCOSE POC LAB TO COLLECT [POC] QIDACANDBED 07/20/18 12:00 Levofloxacin/Dextrose 5%-Water [Levaquin in D5W 500 MG/100 ML] 500 mg Premix Bag 1 bag IV Q48H - Plan Plan:: ASSESSMENT AND PLAN Hepatic encephalopathy-improved over the last 24 hours, ammonia level this morning is now down to 84. She is no longer obtunded, still somewhat lethargic and confused. Diagnostic paracentesis performed yesterday by Dr. Waterman, white blood cell count was 75 with 24% PMNs. Gram stain and culture are pending. -Transfer to the ICU for more intense monitoring and management -Blood and peritoneal cultures pending -IV fluids for hydration, decrease rate to 75 mL per hour -Continue daily albumin infusion -IV meropenem and levofloxacin pending culture results, this should provide coverage for both possible pneumonia as well as S BP -Lactulose 20 mg by mouth 4 times a day -Recheck ammonia level this afternoon and in a.m. Pneumonia with hemoptysis-infiltrates identified on chest x-ray yesterday, during the wagon person hours she experienced significant episode of hemoptysis. Follow-up chest x-ray showed no significant changes. -Continue current antibiotic therapy as above -CT scan of the chest without contrast Peripheral edema-edema has essentially resolved since admission -Albumin 25 g IV daily -Hold furosemide -Reassess in a.m. 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 Despite recent TIPS procedure she is noted to have a large amount of ascites by CT scan Type 2 diabetes mellitus - currently on no medical therapy -4 times a day glucometers -Low-dose sliding scale Humulog Maintenance issues - DVT prophylaxis - Lovenox 30 mg subcutaneous daily - GI prophylaxis - PPI - Nutrition - low sodium - Ernandez catheter - not indicated CODE STATUS -FULL CODE Admission justification - patient will be referred observation status for initiation of antibiotics and physical therapy for strengthening Disposition - I would anticipate discharge to home versus prison dependent on overall strength Primary care physician - Dr. Trammell
--- NOTE | 2018-07-19 15:37 | CRLCT ---
INDICATION: HEMOPTYSIS CT CHEST WITHOUT CONTRAST TECHNIQUE: Multidetector CT imaging was performed through the chest without intravenous contrast administration. Coronal and sagittal reconstructions were generated. COMPARISON: 07/18/2018 CT abdomen. FINDINGS: Lungs and airways: Bilateral perihilar and lower lung consolidation and bilateral upper lung patchy infiltrates. Mild compressive atelectasis in the lung bases due to pleural effusions. Pleura and pleural spaces: Moderate-sized bilateral pleural effusions. Heart and mediastinum: Upper normal heart size. No significant pericardial effusion. Numerous small scattered mediastinal lymph nodes. No pathologically enlarged mediastinal lymph nodes identified. Vascular structures: Normal caliber thoracic aorta with mild atherosclerotic calcifications. Chest wall and axillae: Subcutaneous edema over the lower lateral chest wall bilaterally, greatest on the right. A few upper normal-sized left axillary lymph nodes. Osseous structures: Spinal degenerative changes. No acute fractures identified. Upper abdomen: Cirrhotic liver, splenomegaly, TIPS, prior cholecystectomy, and upper abdominal ascites appear similar to the previous CT. IMPRESSION: 1. Nonspecific bilateral pulmonary consolidation and infiltrates, including bilateral lower lung perihilar consolidation and bilateral upper lobe patchy infiltrates. Pneumonia is possible. 2. Moderate-sized bilateral pleural effusions and associated mild bibasilar compressive atelectasis. 3. Upper abdominal findings including cirrhotic liver, splenomegaly, TIPS, and ascites appear similar to the recent previous abdominal CT. 4. Nonacute additional findings as detailed above. JOHANNA KEBEDE MD [facility] Dictated by Heriberto Kebede MD @ 07/19/2018 3:32:38 PM Dictated by: Heriberto Kebede MD @ 07/19/2018 15:35:54 (Electronically Signed)
[2018-07-19] MEDS: Dimethicone 20%/Zinc Oxide 25% 56 GM Spray Bottle TOP PRN (18:36)
[2018-07-20] MEDS: Morphine 2 MG/ML Syringe IVPUSH PRN ×5 (04:17→22:41)
[2018-07-20] MEDS: Sodium Chloride 0.9% 1,000 ML IV SCH (04:19)
[2018-07-20] MEDS: Lactulose Soln 10 GM/15 ML 15 ML UD Cup PO SCH ×2 (05:27→21:04)
[2018-07-20] MEDS: Meropenem 1 GM in Sodium Chloride 0.9% 100 ML IV SCH ×2 (05:28→17:24)
[2018-07-20] MEDS: Pantoprazole 40 MG Tab.CR PO SCH (07:51)
[2018-07-20] MEDS: Insulin Lispro 100 Unit/ML 3 ML KwikPen SUBCUT SCH ×4 (07:51→21:08)
[2018-07-20] MEDS: Potassium Chloride 20 MEQ Tab.ER PO SCH (08:28)
[2018-07-20] MEDS: Sertraline 50 MG Tab PO SCH (08:28)
[2018-07-20] MEDS: Spironolactone 25 MG Tab PO SCH (08:28)
[2018-07-20] MEDS: Lactobacillus Rhamnosus GG (Probiotic) Cap PO SCH ×2 (08:28→21:03)
[2018-07-20] MEDS: Dimethicone 20%/Zinc Oxide 25% 56 GM Spray Bottle TOP PRN (08:38)
[2018-07-20] MEDS ORDERED: Sodium Chloride 0.9% 1,000 ML IV SCH (09:15)
--- NOTE | 2018-07-20 09:23 | PCM.PN ---
- General Info Date of Service: 07/20/18 Subjective Update: Ms. Keller is more clear and interactive this morning. CT scan of the chest obtained yesterday shows evidence of bilateral pulmonary infiltrates consistent with infection. She has remained afebrile with a normal white blood cell count. Showing evidence of mild to moderate respiratory compromise this morning with increased respiratory rate and borderline saturations on room air. - Review of Systems General: Reports: Weakness. Denies: Fever, Chills Pulmonary: Reports: No Symptoms Cardiovascular: Reports: Edema. Denies: Chest Pain, Dyspnea on Exertion, Orthopnea, PND Gastrointestinal: Reports: No Symptoms Neurological: Reports: Confusion - Patient Data Vitals - Most Recent: Last Vital Signs Temp 98.4 F 07/20/18 07:59 Pulse 86 07/20/18 07:59 Resp 23 H 07/20/18 07:59 BP 124/41 L 07/20/18 07:59 Pulse Ox 94 L 07/20/18 07:59 Weight - Most Recent: 245 lb I&O - Last 24 Hours: Intake & Output 07/19/18 07/20/18 07/20/18 22:59 06:59 14:59 Intake Total 926 1008 100 Output Total 290 290 65 Balance 636 718 35 Lab Results Last 24 Hours: Laboratory Results - last 24 hr 07/20/18 07/20/18 07/20/18 Range/Units 04:30 04:30 04:30 WBC 5.7 (4.5-11.0) K/uL RBC 2.97 L (3.30-5.50) M/uL Hgb 8.8 L (12.0-15.0) g/dL Hct 28.3 L (36.0-48.0) % MCV 95 (80-98) fL MCH 30 (27-31) pg MCHC 31 L (32-36) % Plt Count 108 L (150-400) K/uL Neut % (Auto) 77 H (36-66) % Lymph % (Auto) 10 L (24-44) % Webb % (Auto) 12 H (2-6) % Eos % (Auto) 1 L (2-4) % Baso % (Auto) 0 (0-1) % PT (9.5-12.0) sec INR (0.80-1.20) Sodium 149 H (140-148) mmol/L Potassium 3.8 (3.6-5.2) mmol/L Chloride 117 H (100-108) mmol/L Carbon Dioxide 21 (21-32) mmol/L Anion Gap 14.8 H (5.0-14.0) mmol/L BUN 42 H (7-18) mg/dL Creatinine 2.2 H (0.6-1.0) mg/dL Est Cr Clr Drug Dosing 21.08 mL/min Estimated GFR (MDRD) 22 L (>60) Glucose 97 (74-106) mg/dL Calcium 8.7 (8.5-10.1) mg/dL Magnesium 1.9 (1.8-2.4) mg/dL Total Bilirubin 2.7 H (0.2-1.0) mg/dL AST 52 H (15-37) U/L ALT 25 (12-78) U/L Alkaline Phosphatase 118 H (46-116) U/L Ammonia 62 H (11-32) mmol/L Total Protein 6.6 (6.4-8.2) g/dL Albumin 2.5 L (3.4-5.0) g/dL Globulin 4.1 H (2.3-3.5) g/dL Albumin/Globulin Ratio 0.6 L (1.2-2.2) 07/20/18 Range/Units 05:00 WBC (4.5-11.0) K/uL RBC (3.30-5.50) M/uL Hgb (12.0-15.0) g/dL Hct (36.0-48.0) % MCV (80-98) fL MCH (27-31) pg MCHC (32-36) % Plt Count (150-400) K/uL Neut % (Auto) (36-66) % Lymph % (Auto) (24-44) % Webb % (Auto) (2-6) % Eos % (Auto) (2-4) % Baso % (Auto) (0-1) % PT 15.7 H (9.5-12.0) sec INR 1.46 H (0.80-1.20) Sodium (140-148) mmol/L Potassium (3.6-5.2) mmol/L Chloride (100-108) mmol/L Carbon Dioxide (21-32) mmol/L Anion Gap (5.0-14.0) mmol/L BUN (7-18) mg/dL Creatinine (0.6-1.0) mg/dL Est Cr Clr Drug Dosing mL/min Estimated GFR (MDRD) (>60) Glucose (74-106) mg/dL Calcium (8.5-10.1) mg/dL Magnesium (1.8-2.4) mg/dL Total Bilirubin (0.2-1.0) mg/dL AST (15-37) U/L ALT (12-78) U/L Alkaline Phosphatase (46-116) U/L Ammonia (11-32) mmol/L Total Protein (6.4-8.2) g/dL Albumin (3.4-5.0) g/dL Globulin (2.3-3.5) g/dL Albumin/Globulin Ratio (1.2-2.2) Baljit Results Last 24 Hours: Microbiology 07/18/18 14:50 Gram Stain - Final Peritoneal Fluid Body Fluid Culture - Preliminary NO GROWTH AFTER 1 DAY 07/18/18 12:26 Aerobic Blood Culture - Preliminary Blood - Venous - Lab Draw NO GROWTH AFTER 1 DAY Anaerobic Blood Culture - Preliminary NO GROWTH AFTER 1 DAY 07/18/18 12:20 Aerobic Blood Culture - Preliminary Blood - Arm, Left NO GROWTH AFTER 1 DAY Anaerobic Blood Culture - Preliminary NO GROWTH AFTER 1 DAY Med Orders - Current: Current Medications Benzocaine/Menthol (Cepacol Sore Throat) 1 lozenge MUCMEM Q1H PRN PRN Reason: Other Lidocaine HCl 30 ml/ Al Hydroxide/Mg Hydroxide 30 ml/Diphenhydramine HCl 75 mg 0 ml MUCMEM Q4H PRN PRN Reason: MOUTH CARE Dextrose (Glutose 15) 15 gm PO ONETIME PRN PRN Reason: Hypoglycemia Dextrose/Water (Dextrose 50% In Water) 50 ml IV ONETIME PRN PRN Reason: Hypoglycemia Dimethicone/Zinc Oxide (Rash Relief-Zinc Oxide [place]) 0 gm TOP ASDIRECTED PRN PRN Reason: as needed Last Admin: 07/20/18 08:38 Dose: 1 applic Albumin Human (Albumin 25%) 25 gm in 100 mls @ 25 mls/hr IV DAILY [facility] Last Admin: 07/20/18 08:30 Dose: 25 mls/hr Meropenem 1 gm/ Sodium (Chloride) 100 mls @ 200 mls/hr IV Q12H [facility] Levofloxacin/Dextrose 750 mg/ (Premix) 150 mls @ 100 mls/hr IV Q48H [facility] Sodium Chloride (Normal Saline) 1,000 mls @ 10 mls/hr IV ASDIRECTED [facility] Insulin Human Lispro (Humalog) 0 unit SUBCUT QIDACANDBED [facility]; Protocol Last Admin: 07/20/18 07:51 Dose: Not Given Lactobacillus Rhamnosus (Culturelle) 1 cap PO BID [facility] Last Admin: 07/20/18 08:28 Dose: 1 cap Lactulose (Chronulac) 20 gm PO BID [facility] Morphine Sulfate (Morphine) 2 mg IVPUSH Q4H PRN PRN Reason: Pain Last Admin: 07/20/18 09:07 Dose: 2 mg Ondansetron HCl (Zofran) 4 mg IV Q4H PRN PRN Reason: Nausea/Vomiting Last Admin: 07/17/18 20:41 Dose: 4 mg Pantoprazole Sodium (Protonix) 40 mg PO ACBREAKFAST [facility] Last Admin: 07/20/18 07:51 Dose: 40 mg Potassium Chloride (Klor-Con M20) 20 meq PO DAILY [facility] Last Admin: 07/20/18 08:28 Dose: 20 meq Sertraline HCl (Zoloft) 100 mg PO DAILY [facility] Last Admin: 07/20/18 08:28 Dose: 100 mg Sodium Chloride (Saline Flush) 10 ml FLUSH ASDIRECTED PRN PRN Reason: Keep Vein Open Last Admin: 07/18/18 08:15 Dose: 10 ml Spironolactone (Aldactone) 50 mg PO DAILY [facility] Last Admin: 07/20/18 08:28 Dose: 50 mg Discontinued Medications Enoxaparin Sodium (Lovenox) 30 mg SUBCUT DAILY@1800 [facility] Last Admin: 07/18/18 18:30 Dose: 30 mg Furosemide (Lasix) 60 mg IVPUSH ONETIME ONE Stop: 07/15/18 16:31 Last Admin: 07/15/18 16:49 Dose: 60 mg Furosemide (Lasix) 40 mg IVPUSH NOW ONE Stop: 07/16/18 14:01 Last Admin: 07/16/18 14:25 Dose: 40 mg Furosemide (Lasix) 60 mg IVPUSH NOW ONE Stop: 07/17/18 08:31 Last Admin: 07/17/18 11:27 Dose: 60 mg Furosemide (Lasix) 60 mg IVPUSH NOW ONE Stop: 07/17/18 11:31 Last Admin: 07/17/18 13:16 Dose: Not Given Sodium Chloride (Normal Saline) 1,000 mls @ 500 mls/hr IV ASDIRECTED [facility] Stop: 07/18/18 10:31 Last Admin: 07/18/18 09:11 Dose: 500 mls/hr Sodium Chloride (Normal Saline) 1,000 mls @ 125 mls/hr IV ASDIRECTED [facility] Last Admin: 07/19/18 06:57 Dose: 125 mls/hr Meropenem 1 gm/ Sodium (Chloride) 100 mls @ 200 mls/hr IV Q8H [facility] Last Admin: 07/20/18 05:28 Dose: 200 mls/hr Levofloxacin/Dextrose 750 mg/ (Premix) 150 mls @ 100 mls/hr IV ONETIME ONE Stop: 07/18/18 13:59 Last Admin: 07/18/18 15:13 Dose: 100 mls/hr Levofloxacin/Dextrose 500 mg/ (Premix) 100 mls @ 100 mls/hr IV Q48H [facility] Sodium Chloride (Normal Saline) 1,000 mls @ 500 mls/hr IV ASDIRECTED [facility] Stop: 07/19/18 00:00 Last Admin: 07/18/18 22:08 Dose: 500 mls/hr Sodium Chloride (Normal Saline) 1,000 mls @ 75 mls/hr IV ASDIRECTED [facility] Last Admin: 07/20/18 04:19 Dose: 75 mls/hr Lactulose (Chronulac) 20 gm PO BID [facility] Last Admin: 07/16/18 20:39 Dose: 20 gm Lactulose (Chronulac) 20 gm PO QID [facility] Last Admin: 07/18/18 16:16 Dose: Not Given Lactulose (Chronulac) 20 gm .XX QID [facility] Last Admin: 07/18/18 22:05 Dose: 20 gm Lactulose (Chronulac) 20 gm PO QID [facility] Last Admin: 07/20/18 05:27 Dose: 20 gm Oxycodone HCl (Oxycodone) 5 mg PO Q4H PRN PRN Reason: Pain Last Admin: 07/16/18 11:56 Dose: 5 mg - Exam Quality Assessment: Urine Catheter, DVT Prophylaxis General: Alert, Oriented, Cooperative, Moderate Distress Lungs: Clear to Auscultation, Normal Respiratory Effort Cardiovascular: Regular Rate, Regular Rhythm, No Murmurs GI/Abdominal Exam: Soft, Non-Tender, No Organomegaly, Distended Extremities: Non-Tender, Pedal Edema Skin: Warm, Dry - Problem List Review Problem List Initiated/Reviewed/Updated: Yes - My Orders Last 24 Hours: My Active Orders 07/19/18 17:34 Dimethicone/Zinc Oxide [Rash Relief-Zinc Oxide [place]] 0 gm TOP ASDIRECTED PRN 07/20/18 09:15 RT Aerosol Therapy [RC] ASDIRECTED Albuterol [Proventil Neb Soln] 2.5 mg NEB Q4HRRT PRN Sodium Chloride 0.9% [Normal Saline] 1,000 ml IV ASDIRECTED 07/20/18 10:00 Albuterol/Ipratropium [DuoNeb 3.0-0.5 MG/3 ML] 3 ml NEB QID 07/20/18 12:00 Levofloxacin/Dextrose 5%-Water [Levaquin in D5W 750 MG/150 ML] 750 mg Premix Bag 1 bag IV Q48H 07/20/18 18:00 Meropenem [Merrem] 1 gm Sodium Chloride 0.9% [Normal Saline] 100 ml IV Q12H 07/20/18 21:00 Lactulose [Chronulac] 20 gm PO BID 07/21/18 05:00 CBC WITH AUTO DIFF [HEME] Timed COMPREHENSIVE METABOLIC PN,CMP [CHEM] Timed INR,PT,PROTHROMBIN TIME [COAG] Timed MAGNESIUM [CHEM] Timed 07/21/18 05:11 AMMONIA VENOUS [CHEM] AM - Plan Plan:: ASSESSMENT AND PLAN Hepatic encephalopathy-improved over the last 24 hours, ammonia level this morning is now down to 64. She is no longer obtunded, still somewhat lethargic and confused. Ammonia level has improved significantly, still modestly elevated. With current dose of lactulose having very frequent stools. -Blood and peritoneal cultures pending -Saline lock IV -Continue daily albumin infusion -IV meropenem and levofloxacin pending culture results, this should provide coverage for both possible pneumonia as well as S BP -Lactulose 20 mg by mouth 2 times a day -Recheck ammonia level in a.m. Pneumonia with hemoptysis-CT scan of the chest yesterday documents bilateral infiltrates, there has been no further hemoptysis. -Continue current antibiotic therapy as above Peripheral edema-edema has essentially resolved since admission -Albumin 25 g IV daily -Hold furosemide -Reassess in a.m. 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 Despite recent TIPS procedure she is noted to have a large amount of ascites by CT scan Type 2 diabetes mellitus - currently on no medical therapy -4 times a day glucometers -Low-dose sliding scale Humulog Maintenance issues - DVT prophylaxis - Lovenox 30 mg subcutaneous daily - GI prophylaxis - PPI - Nutrition - low sodium - Ernandez catheter - not indicated CODE STATUS -FULL CODE Admission justification - patient will be referred observation status for initiation of antibiotics and physical therapy for strengthening Disposition - I would anticipate discharge to home versus assisted dependent on overall strength Primary care physician - Dr. Trammell
[2018-07-20] MEDS: Albuterol/Ipratropium 3.0-0.5 MG/3 ML Neb Soln NEB SCH ×3 (11:16→21:03)
[2018-07-20] MEDS: Levofloxacin/Dextrose 5%-Water 750 MG in Premix Bag 1 BAG IV SCH (11:54)
[2018-07-20] MEDS ORDERED: Levofloxacin/Dextrose 5%-Water 500 MG in Premix Bag 1 BAG IV SCH (12:00)
[2018-07-21] MEDS: Meropenem 1 GM in Sodium Chloride 0.9% 100 ML IV SCH ×2 (05:34→17:36)
[2018-07-21] MEDS: Morphine 2 MG/ML Syringe IVPUSH PRN ×5 (06:00→21:20)
[2018-07-21] MEDS: Albuterol/Ipratropium 3.0-0.5 MG/3 ML Neb Soln NEB SCH ×4 (07:39→21:02)
[2018-07-21] MEDS: Pantoprazole 40 MG Tab.CR PO SCH (07:49)
[2018-07-21] MEDS ORDERED: Nitroglycerin 0.4 MG Tab.SL SL PRN (08:04)
[2018-07-21] MEDS ORDERED: Nitroglycerin 0.4 MG Tab.SL ONE (08:10)
--- NOTE | 2018-07-21 08:52 | CRLCR ---
INDICATION: Bilateral pneumonia. Chest pain. TECHNIQUE: AP portable upright chest. COMPARISON: July 19, 2018. Correlation is made with a chest CT July 19, 2018. FINDINGS: Diffuse progressive infiltrates throughout the right lung and less so within the left mid to lower lung. Small pleural effusions. Surgical clips right upper quadrant. A TIPS shunt is identified in the right upper quadrant. IMPRESSION: Progressive bilateral pulmonary infiltrates right clearly more affected than the left. Dictated by Emeka Nicole MD @ Jul 21 2018 8:50AM Signed by Dr. Emeka Nicole @ Jul 21 2018 8:50AM
[2018-07-21] MEDS: Insulin Lispro 100 Unit/ML 3 ML KwikPen SUBCUT SCH ×4 (09:17→21:04)
[2018-07-21] MEDS: Potassium Chloride 20 MEQ Tab.ER PO SCH (09:19)
[2018-07-21] MEDS: Lactobacillus Rhamnosus GG (Probiotic) Cap PO SCH ×2 (09:20→21:01)
[2018-07-21] MEDS: Spironolactone 25 MG Tab PO SCH (09:20)
[2018-07-21] MEDS: Sertraline 50 MG Tab PO SCH (09:20)
[2018-07-21] MEDS: Lactulose Soln 10 GM/15 ML 15 ML UD Cup PO SCH ×2 (09:20→21:01)
--- NOTE | 2018-07-21 09:29 | PCM.PN ---
- General Info Date of Service: 07/21/18 Subjective Update: Ms. Keller to ease to show further clearing of encephalopathy. More alert and conversant this morning than she has been over the past several days. She did experience some pain in her lower chest this morning, on evaluation felt to represent chest wall pain. EKG showed no acute ST segment changes and pain does reproduce by palpation of the chest wall. Hemodynamically she is been stable and has remained afebrile. Chest x-ray obtained this morning shows bilateral infiltrates worse on the right. She requires supplemental oxygen, respiratory status otherwise stable. Bilirubin is down to 2.0 and creatinine also down to 2.0 today. - Review of Systems General: Reports: Weakness. Denies: Fever, Chills Pulmonary: Reports: No Symptoms Cardiovascular: Reports: Chest Pain (Chest wall pain), Edema. Denies: Dyspnea on Exertion, Orthopnea, PND Gastrointestinal: Reports: No Symptoms - Patient Data Vitals - Most Recent: Last Vital Signs Temp 99.3 F 07/21/18 07:58 Pulse 90 07/21/18 07:58 Resp 20 07/21/18 07:58 BP 117/44 L 07/21/18 08:25 Pulse Ox 93 L 07/21/18 07:58 Weight - Most Recent: 249 lb 1.957 oz I&O - Last 24 Hours: Intake & Output 07/20/18 07/21/18 07/21/18 22:59 06:59 14:59 Intake Total 394 216 Output Total 545 225 100 Balance -151 -9 -100 Lab Results Last 24 Hours: Laboratory Results - last 24 hr 07/21/18 07/21/18 07/21/18 Range/Units 05:00 05:00 05:00 WBC 6.9 (4.5-11.0) K/uL RBC 2.96 L (3.30-5.50) M/uL Hgb 8.7 L (12.0-15.0) g/dL Hct 28.8 L (36.0-48.0) % MCV 97 (80-98) fL MCH 29 (27-31) pg MCHC 30 L (32-36) % Plt Count 89 L (150-400) K/uL Neut % (Auto) 81 H (36-66) % Lymph % (Auto) 8 L (24-44) % [place] % (Auto) 11 H (2-6) % Eos % (Auto) 0 L (2-4) % Baso % (Auto) 0 (0-1) % PT 17.1 H (9.5-12.0) sec INR 1.60 H (0.80-1.20) Sodium 148 (140-148) mmol/L Potassium 4.0 (3.6-5.2) mmol/L Chloride 117 H (100-108) mmol/L Carbon Dioxide 19 L (21-32) mmol/L Anion Gap 16.0 H (5.0-14.0) mmol/L BUN 47 H (7-18) mg/dL Creatinine 2.0 H (0.6-1.0) mg/dL Est Cr Clr Drug Dosing 23.19 mL/min Estimated GFR (MDRD) 25 L (>60) Glucose 124 H (74-106) mg/dL Calcium 8.7 (8.5-10.1) mg/dL Magnesium 1.9 (1.8-2.4) mg/dL Total Bilirubin 2.0 H (0.2-1.0) mg/dL AST 47 H (15-37) U/L ALT 24 (12-78) U/L Alkaline Phosphatase 113 (46-116) U/L Ammonia (11-32) mmol/L Total Protein 6.4 (6.4-8.2) g/dL Albumin 2.4 L (3.4-5.0) g/dL Globulin 4.0 H (2.3-3.5) g/dL Albumin/Globulin Ratio 0.6 L (1.2-2.2) 07/21/18 Range/Units 05:11 WBC (4.5-11.0) K/uL RBC (3.30-5.50) M/uL Hgb (12.0-15.0) g/dL Hct (36.0-48.0) % MCV (80-98) fL MCH (27-31) pg MCHC (32-36) % Plt Count (150-400) K/uL Neut % (Auto) (36-66) % Lymph % (Auto) (24-44) % [place] % (Auto) (2-6) % Eos % (Auto) (2-4) % Baso % (Auto) (0-1) % PT (9.5-12.0) sec INR (0.80-1.20) Sodium (140-148) mmol/L Potassium (3.6-5.2) mmol/L Chloride (100-108) mmol/L Carbon Dioxide (21-32) mmol/L Anion Gap (5.0-14.0) mmol/L BUN (7-18) mg/dL Creatinine (0.6-1.0) mg/dL Est Cr Clr Drug Dosing mL/min Estimated GFR (MDRD) (>60) Glucose (74-106) mg/dL Calcium (8.5-10.1) mg/dL Magnesium (1.8-2.4) mg/dL Total Bilirubin (0.2-1.0) mg/dL AST (15-37) U/L ALT (12-78) U/L Alkaline Phosphatase (46-116) U/L Ammonia 43 H (11-32) mmol/L Total Protein (6.4-8.2) g/dL Albumin (3.4-5.0) g/dL Globulin (2.3-3.5) g/dL Albumin/Globulin Ratio (1.2-2.2) Baljit Results Last 24 Hours: Microbiology 07/18/18 14:50 Gram Stain - Final Peritoneal Fluid Body Fluid Culture - Preliminary NO GROWTH AFTER 2 DAYS 07/18/18 12:26 Aerobic Blood Culture - Preliminary Blood - Venous - Lab Draw NO GROWTH AFTER 2 DAYS Anaerobic Blood Culture - Preliminary NO GROWTH AFTER 2 DAYS 07/18/18 12:20 Aerobic Blood Culture - Preliminary Blood - Arm, Left NO GROWTH AFTER 2 DAYS Anaerobic Blood Culture - Preliminary NO GROWTH AFTER 2 DAYS Med Orders - Current: Current Medications Albuterol (Proventil Neb Soln) 2.5 mg NEB Q4H PRN PRN Reason: Dyspnea Albuterol/Ipratropium (Duoneb 3.0-0.5 Mg/3 Ml) 3 ml NEB QIDRT [facility] Last Admin: 07/21/18 07:39 Dose: 3 ml Benzocaine/Menthol (Cepacol Sore Throat) 1 lozenge MUCMEM Q1H PRN PRN Reason: Other Lidocaine HCl 30 ml/ Al Hydroxide/Mg Hydroxide 30 ml/Diphenhydramine HCl 75 mg 0 ml MUCMEM Q4H PRN PRN Reason: MOUTH CARE Dextrose (Glutose 15) 15 gm PO ONETIME PRN PRN Reason: Hypoglycemia Dextrose/Water (Dextrose 50% In Water) 50 ml IV ONETIME PRN PRN Reason: Hypoglycemia Dimethicone/Zinc Oxide (Rash Relief-Zinc Oxide [place]) 0 gm TOP ASDIRECTED PRN PRN Reason: as needed Last Admin: 07/20/18 08:38 Dose: 1 applic Albumin Human (Albumin 25%) 25 gm in 100 mls @ 25 mls/hr IV DAILY [facility] Last Admin: 07/21/18 09:21 Dose: 25 mls/hr Meropenem 1 gm/ Sodium (Chloride) 100 mls @ 200 mls/hr IV Q12H [facility] Last Admin: 07/21/18 05:34 Dose: 200 mls/hr Levofloxacin/Dextrose 750 mg/ (Premix) 150 mls @ 100 mls/hr IV Q48H [facility] Last Admin: 07/20/18 11:54 Dose: 100 mls/hr Sodium Chloride (Normal Saline) 1,000 mls @ 10 mls/hr IV ASDIRECTED [facility] Insulin Human Lispro (Humalog) 0 unit SUBCUT QIDACANDBED [facility]; Protocol Last Admin: 07/21/18 09:17 Dose: Not Given Lactobacillus Rhamnosus (Culturelle) 1 cap PO BID [facility] Last Admin: 07/21/18 09:20 Dose: 1 cap Lactulose (Chronulac) 20 gm PO BID [facility] Last Admin: 07/21/18 09:20 Dose: 20 gm Morphine Sulfate (Morphine) 2 mg IVPUSH Q2H PRN PRN Reason: Pain Last Admin: 07/21/18 07:49 Dose: 2 mg Nitroglycerin (Nitrostat) 0.4 mg SL Q5M PRN PRN Reason: Chest Pain Last Admin: 07/21/18 08:25 Dose: 0.4 mg Ondansetron HCl (Zofran) 4 mg IV Q4H PRN PRN Reason: Nausea/Vomiting Last Admin: 07/17/18 20:41 Dose: 4 mg Pantoprazole Sodium (Protonix) 40 mg PO ACBREAKFAST [facility] Last Admin: 07/21/18 07:49 Dose: 40 mg Potassium Chloride (Klor-Con M20) 20 meq PO DAILY [facility] Last Admin: 07/21/18 09:19 Dose: 20 meq Sertraline HCl (Zoloft) 100 mg PO DAILY [facility] Last Admin: 07/21/18 09:20 Dose: 100 mg Sodium Chloride (Saline Flush) 10 ml FLUSH ASDIRECTED PRN PRN Reason: Keep Vein Open Last Admin: 07/18/18 08:15 Dose: 10 ml Spironolactone (Aldactone) 50 mg PO DAILY [facility] Last Admin: 07/21/18 09:20 Dose: 50 mg Discontinued Medications Enoxaparin Sodium (Lovenox) 30 mg SUBCUT DAILY@1800 [facility] Last Admin: 07/18/18 18:30 Dose: 30 mg Furosemide (Lasix) 60 mg IVPUSH ONETIME ONE Stop: 07/15/18 16:31 Last Admin: 07/15/18 16:49 Dose: 60 mg Furosemide (Lasix) 40 mg IVPUSH NOW ONE Stop: 07/16/18 14:01 Last Admin: 07/16/18 14:25 Dose: 40 mg Furosemide (Lasix) 60 mg IVPUSH NOW ONE Stop: 07/17/18 08:31 Last Admin: 07/17/18 11:27 Dose: 60 mg Furosemide (Lasix) 60 mg IVPUSH NOW ONE Stop: 07/17/18 11:31 Last Admin: 07/17/18 13:16 Dose: Not Given Sodium Chloride (Normal Saline) 1,000 mls @ 500 mls/hr IV ASDIRECTED [facility] Stop: 07/18/18 10:31 Last Admin: 07/18/18 09:11 Dose: 500 mls/hr Sodium Chloride (Normal Saline) 1,000 mls @ 125 mls/hr IV ASDIRECTED [facility] Last Admin: 07/19/18 06:57 Dose: 125 mls/hr Meropenem 1 gm/ Sodium (Chloride) 100 mls @ 200 mls/hr IV Q8H [facility] Last Admin: 07/20/18 05:28 Dose: 200 mls/hr Levofloxacin/Dextrose 750 mg/ (Premix) 150 mls @ 100 mls/hr IV ONETIME ONE Stop: 07/18/18 13:59 Last Admin: 07/18/18 15:13 Dose: 100 mls/hr Levofloxacin/Dextrose 500 mg/ (Premix) 100 mls @ 100 mls/hr IV Q48H [facility] Sodium Chloride (Normal Saline) 1,000 mls @ 500 mls/hr IV ASDIRECTED [facility] Stop: 07/19/18 00:00 Last Admin: 07/18/18 22:08 Dose: 500 mls/hr Sodium Chloride (Normal Saline) 1,000 mls @ 75 mls/hr IV ASDIRECTED [facility] Last Admin: 07/20/18 04:19 Dose: 75 mls/hr Lactulose (Chronulac) 20 gm PO BID [facility] Last Admin: 07/16/18 20:39 Dose: 20 gm Lactulose (Chronulac) 20 gm PO QID [facility] Last Admin: 07/18/18 16:16 Dose: Not Given Lactulose (Chronulac) 20 gm .XX QID [facility] Last Admin: 07/18/18 22:05 Dose: 20 gm Lactulose (Chronulac) 20 gm PO QID [facility] Last Admin: 07/20/18 05:27 Dose: 20 gm Morphine Sulfate (Morphine) 2 mg IVPUSH Q4H PRN PRN Reason: Pain Last Admin: 07/20/18 16:17 Dose: 2 mg Nitroglycerin (Nitrostat) Confirm Administered Dose 0.4 mg .ROUTE .STK-MED ONE Stop: 07/21/18 08:11 Last Admin: 07/21/18 08:43 Dose: Not Given Oxycodone HCl (Oxycodone) 5 mg PO Q4H PRN PRN Reason: Pain Last Admin: 07/16/18 11:56 Dose: 5 mg - Exam Quality Assessment: Supplemental Oxygen, Urine Catheter, DVT Prophylaxis General: Alert, Oriented, Moderate Distress Lungs: Rales, Rhonchi. No: Rub, Wheezing Cardiovascular: Regular Rate, Regular Rhythm, No Murmurs GI/Abdominal Exam: Soft, Non-Tender, Distended. No: Guarding, Rigid, Rebound Extremities: Pedal Edema. No: Increased Warmth Skin: Warm, Other (Evidence of venous stasis both lower extremities, mild edema , no longer leaking fluid) - Problem List Review Problem List Initiated/Reviewed/Updated: Yes - My Orders Last 24 Hours: My Active Orders 07/20/18 09:15 RT Aerosol Therapy [RC] ASDIRECTED Albuterol [Proventil Neb Soln] 2.5 mg NEB Q4H PRN Sodium Chloride 0.9% [Normal Saline] 1,000 ml IV ASDIRECTED 07/20/18 11:00 Albuterol/Ipratropium [DuoNeb 3.0-0.5 MG/3 ML] 3 ml NEB QIDRT 07/20/18 12:00 Levofloxacin/Dextrose 5%-Water [Levaquin in D5W 750 MG/150 ML] 750 mg Premix Bag 1 bag IV Q48H 07/20/18 18:00 Meropenem [Merrem] 1 gm Sodium Chloride 0.9% [Normal Saline] 100 ml IV Q12H 07/20/18 18:45 Morphine 2 mg IVPUSH Q2H PRN 07/20/18 21:00 Lactulose [Chronulac] 20 gm PO BID 07/21/18 08:04 Nitroglycerin [Nitrostat] 0.4 mg SL Q5M PRN 07/21/18 08:05 EKG 12 Lead [EK] Routine - Plan Plan:: ASSESSMENT AND PLAN Hepatic encephalopathy-significantly improved, ammonia level now down to 43 -Continue daily albumin infusion -Lactulose 20 mg by mouth 2 times a day -Recheck ammonia level in a.m. Pneumonia with hemoptysis-chest x-ray from this morning shows bilateral infiltrates, respiratory status stable. Cultures remain negative thus far -Continue meropenem and levofloxacin Peripheral edema-she does have recurrent edema following fluid infusion -Albumin 25 g IV daily -Hold furosemide -Reassess in a.m. 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 Despite recent TIPS procedure she is noted to have a large amount of ascites by CT scan. Abdominal ascites worse over the past few days following fluid infusion. Albumin level at 2.5. -Large-volume paracentesis this morning by Dr. Waterman Type 2 diabetes mellitus - currently on no medical therapy -4 times a day glucometers -Low-dose sliding scale Humulog Anemia-likely secondary to chronic disease, no evidence of active bleeding, other than limited hemoptysis. Hemoglobin level has been stable status post transfusion of 2 units of red blood cells. -Daily hemoglobin levels Maintenance issues - DVT prophylaxis - Lovenox 30 mg subcutaneous daily - GI prophylaxis - PPI - Nutrition - low sodium - Ernandez catheter - not indicated CODE STATUS -FULL CODE Admission justification - patient will be referred observation status for initiation of antibiotics and physical therapy for strengthening Disposition - I would anticipate discharge to home versus [place] [facility] dependent on overall strength Primary care physician - Dr. Trammell
[2018-07-21] MEDS: Albuterol 0.083% 2.5 MG/3 ML Neb Soln NEB PRN (17:46)
[2018-07-21] MEDS: Sodium Chloride 0.9% 1,000 ML IV SCH (17:47)
[2018-07-22] MEDS: Morphine 2 MG/ML Syringe IVPUSH PRN ×12 (01:01→23:31)
[2018-07-22] MEDS ORDERED: Furosemide 40 MG/4 ML VIAL IVPUSH ONE (03:58)
[2018-07-22] MEDS: Albuterol 0.083% 2.5 MG/3 ML Neb Soln NEB PRN (04:00)
[2018-07-22] MEDS: Meropenem 1 GM in Sodium Chloride 0.9% 100 ML IV SCH ×2 (05:52→17:03)
[2018-07-22] MEDS: Sodium Chloride 0.9% 1,000 ML IV SCH ×2 (06:01→22:45)
[2018-07-22] MEDS: Albuterol/Ipratropium 3.0-0.5 MG/3 ML Neb Soln NEB SCH ×4 (07:15→21:01)
[2018-07-22] MEDS: Insulin Lispro 100 Unit/ML 3 ML KwikPen SUBCUT SCH ×4 (07:56→20:51)
--- NOTE | 2018-07-22 09:16 | PCM.PN ---
- General Info Date of Service: 07/22/18 Subjective Update: Yesterday afternoon the patient had a witnessed episode of coughing while she was trying to drink liquid. A coughing episode lasted several minutes. Since that time she has had a slow increase in her supplemental oxygen requirement. She has a loose cough but has not produce much sputum. She continues to be very weak. She did not have any fevers overnight. She is not complaining of abdominal pain at this time. Confusion seems to be improved but she doesn't seem quite back to baseline. Ammonia level has improved. Ultrasound to garrett ascites fluid for possible paracentesis this morning revealed minimal intra- abdominal fluid so no paracentesis was performed. Functional Status: Reports: Pain Controlled - Review of Systems General: Reports: Weakness. Denies: Fever Pulmonary: Reports: Shortness of Breath, Cough - Patient Data Vitals - Most Recent: Last Vital Signs Temp 37.1 C 07/22/18 08:00 Pulse 97 07/22/18 07:16 Resp 20 07/22/18 08:00 BP 138/45 L 07/22/18 08:00 Pulse Ox 90 L 07/22/18 08:00 Weight - Most Recent: 113 kg I&O - Last 24 Hours: Intake & Output 07/21/18 07/22/18 07/22/18 22:59 06:59 14:59 Intake Total 216 983 Output Total 285 515 Balance -69 468 Lab Results Last 24 Hours: Laboratory Results - last 24 hr 07/22/18 07/22/18 07/22/18 Range/Units 08:32 08:32 08:32 WBC 10.4 (4.5-11.0) K/uL RBC 3.19 L (3.30-5.50) M/uL Hgb 9.4 L (12.0-15.0) g/dL Hct 31.0 L (36.0-48.0) % MCV 97 (80-98) fL MCH 30 (27-31) pg MCHC 30 L (32-36) % Plt Count 92 L (150-400) K/uL Sodium 149 H (140-148) mmol/L Potassium 4.4 (3.6-5.2) mmol/L Chloride 117 H (100-108) mmol/L Carbon Dioxide 20 L (21-32) mmol/L Anion Gap 16.4 H (5.0-14.0) mmol/L BUN 51 H (7-18) mg/dL Creatinine 2.1 H (0.6-1.0) mg/dL Est Cr Clr Drug Dosing 22.08 mL/min Estimated GFR (MDRD) 24 L (>60) Glucose 114 H (74-106) mg/dL Calcium 8.8 (8.5-10.1) mg/dL Ammonia 24 (11-32) mmol/L Baljit Results Last 24 Hours: Microbiology 07/18/18 14:50 Gram Stain - Final Peritoneal Fluid Body Fluid Culture - Final NO GROWTH AFTER 3 DAYS 07/18/18 12:20 Aerobic Blood Culture - Preliminary Blood - Arm, Left NO GROWTH AFTER 3 DAYS Anaerobic Blood Culture - Preliminary NO GROWTH AFTER 3 DAYS 07/18/18 12:26 Aerobic Blood Culture - Preliminary Blood - Venous - Lab Draw NO GROWTH AFTER 3 DAYS Anaerobic Blood Culture - Preliminary NO GROWTH AFTER 3 DAYS Med Orders - Current: Current Medications Albuterol (Proventil Neb Soln) 2.5 mg NEB Q4H PRN PRN Reason: Dyspnea Last Admin: 07/22/18 04:00 Dose: 2.5 mg Albuterol/Ipratropium (Duoneb 3.0-0.5 Mg/3 Ml) 3 ml NEB QIDRT BETO Last Admin: 07/22/18 07:15 Dose: 3 ml Benzocaine/Menthol (Cepacol Sore Throat) 1 lozenge MUCMEM Q1H PRN PRN Reason: Other Last Admin: 07/21/18 17:46 Dose: 1 tanvi Lidocaine HCl 30 ml/ Al Hydroxide/Mg Hydroxide 30 ml/Diphenhydramine HCl 75 mg 0 ml MUCMEM Q4H PRN PRN Reason: MOUTH CARE Dextrose (Glutose 15) 15 gm PO ONETIME PRN PRN Reason: Hypoglycemia Dextrose/Water (Dextrose 50% In Water) 50 ml IV ONETIME PRN PRN Reason: Hypoglycemia Dimethicone/Zinc Oxide (Rash Relief-Zinc Oxide [place]) 0 gm TOP ASDIRECTED PRN PRN Reason: as needed Last Admin: 07/20/18 08:38 Dose: 1 applic Albumin Human (Albumin 25%) 25 gm in 100 mls @ 25 mls/hr IV DAILY BETO Last Admin: 07/21/18 09:21 Dose: 25 mls/hr Meropenem 1 gm/ Sodium (Chloride) 100 mls @ 200 mls/hr IV Q12H [facility] Last Admin: 07/22/18 05:52 Dose: 200 mls/hr Levofloxacin/Dextrose 750 mg/ (Premix) 150 mls @ 100 mls/hr IV Q48H [facility] Last Admin: 07/20/18 11:54 Dose: 100 mls/hr Sodium Chloride (Normal Saline) 1,000 mls @ 75 mls/hr IV ASDIRECTED [facility] Last Admin: 07/22/18 06:01 Dose: 75 mls/hr Insulin Human Lispro (Humalog) 0 unit SUBCUT QIDACANDBED [facility]; Protocol Last Admin: 07/22/18 07:56 Dose: Not Given Lactobacillus Rhamnosus (Culturelle) 1 cap PO BID [facility] Last Admin: 07/21/18 21:01 Dose: 1 cap Lactulose (Chronulac) 20 gm PO BID [facility] Last Admin: 07/21/18 21:01 Dose: 20 gm Morphine Sulfate (Morphine) 2 mg IVPUSH Q2H PRN PRN Reason: Pain Last Admin: 07/22/18 05:52 Dose: 2 mg Nitroglycerin (Nitrostat) 0.4 mg SL Q5M PRN PRN Reason: Chest Pain Last Admin: 07/21/18 08:25 Dose: 0.4 mg Ondansetron HCl (Zofran) 4 mg IV Q4H PRN PRN Reason: Nausea/Vomiting Last Admin: 07/17/18 20:41 Dose: 4 mg Pantoprazole Sodium (Protonix) 40 mg PO ACBREAKFAST [facility] Last Admin: 07/21/18 07:49 Dose: 40 mg Potassium Chloride (Klor-Con M20) 20 meq PO DAILY [facility] Last Admin: 07/21/18 09:19 Dose: 20 meq Sertraline HCl (Zoloft) 100 mg PO DAILY [facility] Last Admin: 07/21/18 09:20 Dose: 100 mg Sodium Chloride (Saline Flush) 10 ml FLUSH ASDIRECTED PRN PRN Reason: Keep Vein Open Last Admin: 07/18/18 08:15 Dose: 10 ml Spironolactone (Aldactone) 50 mg PO DAILY [facility] Last Admin: 07/21/18 09:20 Dose: 50 mg Discontinued Medications Enoxaparin Sodium (Lovenox) 30 mg SUBCUT DAILY@1800 [facility] Last Admin: 07/18/18 18:30 Dose: 30 mg Furosemide (Lasix) 60 mg IVPUSH ONETIME ONE Stop: 07/15/18 16:31 Last Admin: 07/15/18 16:49 Dose: 60 mg Furosemide (Lasix) 40 mg IVPUSH NOW ONE Stop: 07/16/18 14:01 Last Admin: 07/16/18 14:25 Dose: 40 mg Furosemide (Lasix) 60 mg IVPUSH NOW ONE Stop: 07/17/18 08:31 Last Admin: 07/17/18 11:27 Dose: 60 mg Furosemide (Lasix) 60 mg IVPUSH NOW ONE Stop: 07/17/18 11:31 Last Admin: 07/17/18 13:16 Dose: Not Given Furosemide (Lasix) 60 mg IVPUSH ONETIME ONE Stop: 07/22/18 03:59 Last Admin: 07/22/18 04:11 Dose: 60 mg Sodium Chloride (Normal Saline) 1,000 mls @ 500 mls/hr IV ASDIRECTED [facility] Stop: 07/18/18 10:31 Last Admin: 07/18/18 09:11 Dose: 500 mls/hr Sodium Chloride (Normal Saline) 1,000 mls @ 125 mls/hr IV ASDIRECTED [facility] Last Admin: 07/19/18 06:57 Dose: 125 mls/hr Meropenem 1 gm/ Sodium (Chloride) 100 mls @ 200 mls/hr IV Q8H [facility] Last Admin: 07/20/18 05:28 Dose: 200 mls/hr Levofloxacin/Dextrose 750 mg/ (Premix) 150 mls @ 100 mls/hr IV ONETIME ONE Stop: 07/18/18 13:59 Last Admin: 07/18/18 15:13 Dose: 100 mls/hr Levofloxacin/Dextrose 500 mg/ (Premix) 100 mls @ 100 mls/hr IV Q48H [facility] Sodium Chloride (Normal Saline) 1,000 mls @ 500 mls/hr IV ASDIRECTED [facility] Stop: 07/19/18 00:00 Last Admin: 07/18/18 22:08 Dose: 500 mls/hr Sodium Chloride (Normal Saline) 1,000 mls @ 75 mls/hr IV ASDIRECTED [facility] Last Admin: 04/20/19 04:19 Dose: 75 mls/hr Sodium Chloride (Normal Saline) 1,000 mls @ 10 mls/hr IV ASDIRECTED [facility] Lactulose (Chronulac) 20 gm PO BID [facility] Last Admin: 07/16/18 20:39 Dose: 20 gm Lactulose (Chronulac) 20 gm PO QID [facility] Last Admin: 07/18/18 16:16 Dose: Not Given Lactulose (Chronulac) 20 gm .XX QID [facility] Last Admin: 07/18/18 22:05 Dose: 20 gm Lactulose (Chronulac) 20 gm PO QID [facility] Last Admin: 07/20/18 05:27 Dose: 20 gm Morphine Sulfate (Morphine) 2 mg IVPUSH Q4H PRN PRN Reason: Pain Last Admin: 07/20/18 16:17 Dose: 2 mg Nitroglycerin (Nitrostat) Confirm Administered Dose 0.4 mg .ROUTE .STK-MED ONE Stop: 07/21/18 08:11 Last Admin: 07/21/18 08:43 Dose: Not Given Oxycodone HCl (Oxycodone) 5 mg PO Q4H PRN PRN Reason: Pain Last Admin: 07/16/18 11:56 Dose: 5 mg - Exam Quality Assessment: Supplemental Oxygen, Skin Breakdown General: Alert, Cooperative, No Acute Distress Lungs: Crackles (diffuse, most impressive in upper airway and left upper chest ) . No: Normal Respiratory Effort (increased work of breathing), Wheezing Cardiovascular: Regular Rhythm, Tachycardia GI/Abdominal Exam: Normal Bowel Sounds, Soft, No Distention, Tender Extremities: Pedal Edema. 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 No: Anxious - Problem List Review Problem List Initiated/Reviewed/Updated: Yes - My Orders Last 24 Hours: My Active Orders 07/23/18 05:00 Chest 1V Frontal [CR] Timed CBC W/O DIFF,HEMOGRAM [HEME] Timed (1) COMPREHENSIVE METABOLIC PN,CMP [CHEM] Timed INR,PT,PROTHROMBIN TIME [COAG] Timed MAGNESIUM [CHEM] Timed - Plan Plan:: ASSESSMENT AND PLAN Hepatic encephalopathy - ongoing improvement and ammonia level has now normalized. -Continue daily albumin infusion -Lactulose 20 mg by mouth 2 times a day -Recheck ammonia level in a.m. Bilateral pneumonia with hemoptysis - patient had been improving from the original pneumonia standpoint but now has probable aspiration pneumonitis/ pneumonia on top of resumed bacterial infection. Cultures remain negative. -Continue meropenem and levofloxacin Probable aspiration pneumonitis/pneumonia - witnessed episode of coughing/ choking yesterday. Increasing supplemental oxygen requirements but no fever since that time. -Antibiotics as above -Speech pathology evaluation to determine safety of swallow Peripheral edema - edema is relatively mild at this time. -Albumin 25 g IV daily -Hold furosemide -Reassess in a.m. Acute kidney injury - creatinine has remained stable but has not improved to baseline as of yet. 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 ascites fluid was not noted to be large on ultrasound this morning so no paracentesis was performed. INR remains elevated at 1.6. Ammonia level trending down. Type 2 diabetes mellitus - currently on no medical therapy -4 times a day glucometers -Low-dose sliding scale Humulog Anemia - likely secondary to chronic disease, no evidence of active bleeding, other than limited hemoptysis. Hemoglobin has been stable for several days. -Daily hemoglobin levels Maintenance issues - DVT prophylaxis - Lovenox 30 mg subcutaneous daily - GI prophylaxis - PPI - Nutrition - low sodium Disposition - I would anticipate discharge to home versus correction dependent on overall strength Siva Ricardo M.D.
[2018-07-22] MEDS: Potassium Chloride 20 MEQ Tab.ER PO SCH (09:51)
[2018-07-22] MEDS: Pantoprazole 40 MG Tab.CR PO SCH (09:51)
[2018-07-22] MEDS: Spironolactone 25 MG Tab PO SCH (09:51)
[2018-07-22] MEDS: Sertraline 50 MG Tab PO SCH (09:51)
[2018-07-22] MEDS: Lactobacillus Rhamnosus GG (Probiotic) Cap PO SCH (09:51)
[2018-07-22] MEDS: Lactulose Soln 10 GM/15 ML 15 ML UD Cup PO SCH (09:52)
[2018-07-22] MEDS: Levofloxacin/Dextrose 5%-Water 750 MG in Premix Bag 1 BAG IV SCH (12:49)
[2018-07-22] MEDS: Morphine 10 MG/0.5 ML Oral Syringe PO PRN ×2 (15:47→17:54)
[2018-07-22] MEDS ORDERED: methylPREDNISolone Sodium Succinate 125 MG/2 ML SDV IVPUSH ONE (19:03)
--- NOTE | 2018-07-22 19:08 | PCM.SN ---
- Free Text/Narrative Note: Notified by nursing of declining resp status. Pt now on non-rebreather and O2 sats only in the mid 80's. Breathing labored. Pt assessed and CXR reviewed. Pt tachypneic and alert but not interactive. HR 125, O2 86 on high flow NR. BP 159 systolic. Lung exam notable for moderate increase in work of breathing and diffuse crackles. Cardio exam tachy but otherwise normal. CXR shows diffuse and fairly dense bilateral infiltrates. Discussed dire nature of the situation with patient and family. Likely related to aspiration from yesterday and now developing ARDS. The patient has expressed no heriocs. Family is comfortable with this. We are going to change up abx and start steroids. Also increasing morphine and adding lorazepam for comfort. Cares will not be escalated beyond this. Family and patient aware of the plan. Harman Ricardo MD
[2018-07-22] MEDS: LORazepam 2 MG/ML SDV IVPUSH PRN ×2 (19:20→20:34)
--- NOTE | 2018-07-22 19:46 | CRLCR ---
Indication: Decreased oxygen saturation Technique: Chest 1 view Comparison: July 21, 2018 Findings/Impression: Interval increase in patchy bilateral pulmonary opacities concerning for infection or edema. No pneumothorax. No large effusion. Cardiac silhouette is obscured by the pulmonary opacities. Moderate air-filled distention of the stomach. Surgical clips in the right upper quadrant. Dictated by Hue Martin MD @ Jul 22 2018 7:41PM Signed by Dr. Hue Martin @ Jul 22 2018 7:43PM
[2018-07-22] MEDS ORDERED: Doxycycline 100 MG in Sodium Chloride 0.9% 100 ML IV SCH (20:00)
[2018-07-23] MEDS ORDERED: methylPREDNISolone Sodium Succinate 125 MG/2 ML SDV IVPUSH SCH (02:00)
[2018-07-23] MEDS: Albuterol/Ipratropium 3.0-0.5 MG/3 ML Neb Soln NEB SCH ×2 (07:16→10:38)
--- NOTE | 2018-07-23 09:29 | PCM.DCSUM1 ---
Discharge Summary - Hospital Course Brief History: 63-year-old female with well-controlled type 2 diabetes mellitus and autoimmune hepatitis complicated by hepatic encephalopathy and ascites who presented with increasing weakness and confusion. She was admitted for management of hepatic encephalopathy and lower extremity edema. Diagnosis: Stroke: No - Discharge Data Discharge Date: 07/23/18 Discharge Disposition: 20 Preliminary Cause of *Q: Respiratory Failure (aspiration pneumonia) Condition: - Discharge Diagnosis/Problem(s) (1) Aspiration pneumonia SNOMED Code(s): 499602102 ICD Code: J69.0 - PNEUMONITIS DUE TO INHALATION OF FOOD AND VOMIT Status: Acute Current Visit: Yes Qualifiers: Aspiration pneumonia type: due to regurgitated food Laterality: bilateral Lung location: unspecified part of lung Qualified Code(s): J69.0 - Pneumonitis due to inhalation of food and vomit (2) Bilateral pneumonia SNOMED Code(s): 629986777 ICD Code: J18.9 - PNEUMONIA, UNSPECIFIED ORGANISM Status: Acute Current Visit: Yes Qualifiers: Pneumonia type: due to unspecified organism Lung location: unspecified part of lung Qualified Code(s): J18.9 - Pneumonia, unspecified organism (3) Acute kidney injury SNOMED Code(s): 71229679 ICD Code: N17.9 - ACUTE KIDNEY FAILURE, UNSPECIFIED Status: Acute Current Visit: Yes (4) Autoimmune hepatitis SNOMED Code(s): 833105029 ICD Code: K75.4 - AUTOIMMUNE HEPATITIS Status: Acute Current Visit: Yes (5) Hepatic encephalopathy SNOMED Code(s): 31887257 ICD Code: K72.90 - HEPATIC FAILURE, UNSPECIFIED WITHOUT COMA Status: Chronic Current Visit: Yes (6) Cirrhosis of liver with ascites SNOMED Code(s): 31051944 ICD Code: K74.60 - UNSPECIFIED CIRRHOSIS OF LIVER; R18.8 - OTHER ASCITES Status: Chronic Priority: High Current Visit: No Qualifiers: Hepatic cirrhosis type: unspecified hepatic cirrhosis Qualified Code(s): K74.60 - Unspecified cirrhosis of liver; R18.8 - Other ascites (7) Diabetes mellitus type II, controlled SNOMED Code(s): 49229844, 070223071 ICD Code: E11.9 - TYPE 2 DIABETES MELLITUS WITHOUT COMPLICATIONS Status: Chronic Current Visit: No Qualifiers: Diabetes mellitus detention insulin use: without detention use Diabetes mellitus complication status: without complication Qualified Code(s): E11.9 - Type 2 diabetes mellitus without complications - Patient Summary/Data Consults: Consultations 07/15/18 15:43 PT Evaluation and Treatment [CONS] Routine Please Evaluate and Treat. PT Reason for Consult: Weakness This query below is only for informational purposes and is not editable. 07/18/18 13:06 Consult to Physician [CONS] Urgent Consulting Provider: Jensen Waterman Call Completed to Consulting Physician: No Reason for Consult: Diagnostic abdominal paracentesis 07/21/18 17:30 Consult to Speech Language Pathology [SEWING TRIMMER Evaluation and Treatment] [CONS] Routine Please Evaluate and Treat SEWING TRIMMER Reason for Consult: Swallow This query below is only for informational purposes and is not editable. Admission Diagnosis/Problem: Encephalopathy Hospital Course: Lilian presented to the emergency room with several days of progressive weakness and confusion. Initial workup in the emergency room did not suggest infection and it was thought that her lactulose dose made the ineffective. Initial ammonia level was elevated at 105. Her kidney function had declined from baseline with a creatinine of 2.1. She did not have any fevers or an elevated white count. Also noted in the emergency room was a significant increase in her peripheral edema from baseline with multiple fluid filled bullae and some areas of weeping from ruptured bullae. She was admitted to the hospital and started on an increased dose of lactulose. She received aggressive IV diuretics. Overnight following admission her lower extremity edema did improve. Her kidney function remained stable and her ammonia level did improve to 72. She did not have any fevers. Clinically she seemed a little bit better the next day. The care plan was continued in the hospital day 2 but unfortunately her ammonia level started to rise. Her DB continued to improve but clinically she was more confused and weak. On hospital day 3 she was noted to be obtunded. Her ammonia level had risen significantly. Chest x-ray and CT of the abdomen and pelvis were obtained. The chest x-ray suggested a bilateral perihilar pneumonia. A diagnostic paracentesis was performed which did not suggest spontaneous bacterial peritonitis. She was started on broad-spectrum antibiotics for the pneumonia. Over the next 24 hours her ammonia level sanju further and peaked at more than 200. Kidney function had also declined with a creatinine rise to 2.7. Fortunately with some IV fluids and continuing treatment for the pneumonia her ammonia level started to trend down. Clinically she was making some progress and starting to become more clear and interactive. Cultures were negative. Her lower extremity edema resolved so diuretics were discontinued. Over the next couple of days her ammonia level continued to trend down. Her lactulose dose was decreased and she had further decline in her ammonia level. Kidney function had returned to the level of admission at 2.1. Mental status had improved towards baseline. She remained extremely weak. She was requiring supplemental oxygen but this did seem to be slowly improving as well. Her hepatic panel numbers had remained relatively stable with normal AST and ALTs. Bilirubin remained relatively stable around 2. INR was between 1.[address] scan of the abdomen and pelvis suggested increased ascites despite her recent TIPS procedure and a larger volume paracentesis was considered for symptomatically reasons. When an ultrasound marking was performed there was not significant fluid in the abdomen so no paracentesis was completed. Unfortunately after her initial improvement on July 21 the patient had an episode of aspiration followed by prolonged coughing episode. She seemed to be relatively stable after the coughing episode. The morning after the aspiration episode she had remained fairly stable. Her work of breathing and increased slightly but she was still stable on 3 L of oxygen. Her kidney function had improved slightly with creatinine down to 2.0 and her ammonia level had normalized. She had returned to a normal mental status. Vital signs are stable at this point other than mild tachycardia. Later that afternoon on July 22 the patient had a significant decline. Respiratory status declined with increasing supplemental oxygen requirements. Nasal cannula supplementation was ineffective so a simple mask and then later a nonrebreather mask were initiated. A repeat chest x-ray was obtained which showed diffuse bilateral infiltrates concerning for ARDS. I sat down with the family at this point which included 2 sisters. The patient had previously expressed a wish to not be intubated or resuscitated if her condition declined to that serious of an nature. They were comfortable with continuing the current level of care to see if she could improve over the next hours or possibly days. They were very interested in aggressive comfort measures during that time and we increased her morphine dose as well as added lorazepam for any anxiety. They did not wish to escalate cares further at this point but were hopeful that things could improve. Overnight after this discussion the patient declined further with dropping oxygen saturations despite the mask. The family requested that the mass be removed because of its apparent discomfort. Blood pressure trended down. Systolic pressures in the 70s. Laboratory studies in the morning showed hypoglycemia which was treated with D50. A significant rise in her AST was noted to more than 1000. Kidney function had declined significantly with a creatinine up to 2.7. Family did not wish to institute more aggressive cares as expressed above. The patient had been unresponsive for approximately 8 hours at this point. She passed peacefully on the morning of discharge with many family members at her side. No attempts at resuscitation were made based on previously expressed wishes. The cause of is aspiration pneumonia which complicated a bilateral bacterial pneumonia as well as autoimmune hepatitis with multiple complications as well as acute kidney injury. - Discharge Plan *PRESCRIPTION DRUG MONITORING PROGRAM REVIEWED*: Not Applicable *COPY OF PRESCRIPTION DRUG MONITORING REPORT IN PATIENT ALISON: Not Applicable Home Medications: Home Meds Pantoprazole Sodium [Protonix] 40 mg PO DAILY 11/01/17 [History] Folic Acid 1 mg PO DAILY 04/08/18 [History] Furosemide [Lasix] 40 mg PO DAILY 04/08/18 [History] Potassium Chloride [Klor-Con M20] 20 meq PO DAILY 04/08/18 [History] Sertraline [Zoloft] 100 mg PO DAILY 04/08/18 [History] Spironolactone [Aldactone] 50 mg PO DAILY 04/08/18 [History] Thiamine [Vitamin B-1] 100 mg PO DAILY 04/08/18 [History] Ferrous Sulfate 325 mg PO DAILY 06/05/18 [History] Lactulose 10 gm PO BID 30 Days #30 ml 06/14/18 [Rx] cephALEXin [Keflex] 500 mg PO BID #6 cap 06/14/18 [Rx] - Discharge Summary/Plan Comment DC Time >30 min.: No - Patient Data Vitals - Most Recent: Last Vital Signs Temp 37.8 C 07/23/18 04:00 Pulse 99 07/22/18 14:33 Resp 10 L 07/23/18 06:00 BP 79/26 L 07/23/18 06:00 Pulse Ox 81 L 07/23/18 06:00 Weight - Most Recent: 113 kg I&O - Last 24 hours: Intake & Output 07/22/18 07/23/18 07/23/18 22:59 06:59 14:59 Intake Total 1360 1031 Output Total 150 50 Balance 1210 981 Lab Results - Last 24 hrs: Laboratory Results - last 24 hr 07/23/18 07/23/18 07/23/18 Range/Units 04:50 04:50 04:50 WBC 18.5 H (4.5-11.0) K/uL RBC 3.30 (3.30-5.50) M/uL Hgb 9.9 L (12.0-15.0) g/dL Hct 34.2 L (36.0-48.0) % MCV 104 H (80-98) fL MCH 30 (27-31) pg MCHC 29 L (32-36) % Plt Count 162 (150-400) K/uL PT 23.9 H (9.5-12.0) sec INR 2.28 H (0.80-1.20) Sodium 150 H (140-148) mmol/L Potassium 6.0 H (3.6-5.2) mmol/L Chloride 118 H (100-108) mmol/L Carbon Dioxide 16 L (21-32) mmol/L Anion Gap 22.0 H (5.0-14.0) mmol/L BUN 61 H (7-18) mg/dL Creatinine 2.7 H (0.6-1.0) mg/dL Est Cr Clr Drug Dosing 17.18 mL/min Estimated GFR (MDRD) 18 L (>60) Glucose 24 L* (74-106) mg/dL Calcium 9.1 (8.5-10.1) mg/dL Magnesium 2.4 (1.8-2.4) mg/dL Total Bilirubin 2.6 H (0.2-1.0) mg/dL AST 1069 H (15-37) U/L ALT 184 H (12-78) U/L Alkaline Phosphatase 95 (46-116) U/L Total Protein 6.6 (6.4-8.2) g/dL Albumin 2.6 L (3.4-5.0) g/dL Globulin 4.0 H (2.3-3.5) g/dL Albumin/Globulin Ratio 0.7 L (1.2-2.2) ABHILASH Results - Last 24 hrs: Microbiology 07/18/18 12:26 Aerobic Blood Culture - Preliminary Blood - Venous - Lab Draw NO GROWTH AFTER 4 DAYS Anaerobic Blood Culture - Preliminary NO GROWTH AFTER 4 DAYS 07/18/18 12:20 Aerobic Blood Culture - Preliminary Blood - Arm, Left NO GROWTH AFTER 4 DAYS Anaerobic Blood Culture - Preliminary NO GROWTH AFTER 4 DAYS 07/18/18 14:50 Gram Stain - Final Peritoneal Fluid Body Fluid Culture - Final NO GROWTH AFTER 3 DAYS Med Orders - Current: Current Medications Albuterol (Proventil Neb Soln) 2.5 mg NEB Q4H PRN PRN Reason: Dyspnea Last Admin: 07/22/18 04:00 Dose: 2.5 mg Albuterol/Ipratropium (Duoneb 3.0-0.5 Mg/3 Ml) 3 ml NEB QIDRT [facility] Last Admin: 07/23/18 07:16 Dose: Not Given Lidocaine HCl 30 ml/ Al Hydroxide/Mg Hydroxide 30 ml/Diphenhydramine HCl 75 mg 0 ml MUCMEM Q4H PRN PRN Reason: MOUTH CARE Dextrose/Water (Dextrose 50% In Water) 50 ml IV ONETIME PRN PRN Reason: Hypoglycemia Last Admin: 07/23/18 05:28 Dose: 50 ml Dimethicone/Zinc Oxide (Rash Relief-Zinc Oxide [place]) 0 gm TOP ASDIRECTED PRN PRN Reason: as needed Last Admin: 07/20/18 08:38 Dose: 1 applic Albumin Human (Albumin 25%) 25 gm in 100 mls @ 25 mls/hr IV DAILY [facility] Last Admin: 07/22/18 09:52 Dose: 25 mls/hr Meropenem 1 gm/ Sodium (Chloride) 100 mls @ 200 mls/hr IV Q12H [facility] Last Admin: 07/22/18 17:03 Dose: 200 mls/hr Sodium Chloride (Normal Saline) 1,000 mls @ 75 mls/hr IV ASDIRECTED [facility] Last Admin: 07/22/18 22:45 Dose: 75 mls/hr Doxycycline Hyclate 100 mg/ (Sodium Chloride) 100 mls @ 100 mls/hr IV Q12H [facility] Last Admin: 07/22/18 19:33 Dose: 100 mls/hr Insulin Human Lispro (Humalog) 0 unit SUBCUT QIDACANDBED [facility]; Protocol Last Admin: 07/22/18 20:51 Dose: Not Given Lorazepam (Ativan) 0.5 mg IVPUSH Q30M PRN PRN Reason: Anxiety Last Admin: 07/22/18 20:34 Dose: 0.5 mg Methylprednisolone Sodium Succinate (Solu-Medrol) 62.5 mg IVPUSH Q6H [facility] Last Admin: 07/23/18 02:04 Dose: 62.5 mg Morphine Sulfate (Morphine) 2 mg IVPUSH Q30M PRN PRN Reason: Pain/Air Hunger Last Admin: 07/22/18 23:31 Dose: 2 mg Nitroglycerin (Nitrostat) 0.4 mg SL Q5M PRN PRN Reason: Chest Pain Last Admin: 07/21/18 08:25 Dose: 0.4 mg Ondansetron HCl (Zofran) 4 mg IV Q4H PRN PRN Reason: Nausea/Vomiting Last Admin: 07/17/18 20:41 Dose: 4 mg Sodium Chloride (Saline Flush) 10 ml FLUSH ASDIRECTED PRN PRN Reason: Keep Vein Open Last Admin: 07/18/18 08:15 Dose: 10 ml Discontinued Medications Benzocaine/Menthol (Cepacol Sore Throat) 1 lozenge MUCMEM Q1H PRN PRN Reason: Other Last Admin: 07/21/18 17:46 Dose: 1 tanvi Dextrose (Glutose 15) 15 gm PO ONETIME PRN PRN Reason: Hypoglycemia Enoxaparin Sodium (Lovenox) 30 mg SUBCUT DAILY@1800 [facility] Last Admin: 07/18/18 18:30 Dose: 30 mg Furosemide (Lasix) 60 mg IVPUSH ONETIME ONE Stop: 07/15/18 16:31 Last Admin: 07/15/18 16:49 Dose: 60 mg Furosemide (Lasix) 40 mg IVPUSH NOW ONE Stop: 07/16/18 14:01 Last Admin: 07/16/18 14:25 Dose: 40 mg Furosemide (Lasix) 60 mg IVPUSH NOW ONE Stop: 07/17/18 08:31 Last Admin: 07/17/18 11:27 Dose: 60 mg Furosemide (Lasix) 60 mg IVPUSH NOW ONE Stop: 07/17/18 11:31 Last Admin: 07/17/18 13:16 Dose: Not Given Furosemide (Lasix) 60 mg IVPUSH ONETIME ONE Stop: 07/22/18 03:59 Last Admin: 07/22/18 04:11 Dose: 60 mg Sodium Chloride (Normal Saline) 1,000 mls @ 500 mls/hr IV ASDIRECTED [facility] Stop: 07/18/18 10:31 Last Admin: 07/18/18 09:11 Dose: 500 mls/hr Sodium Chloride (Normal Saline) 1,000 mls @ 125 mls/hr IV ASDIRECTED [facility] Last Admin: 07/19/18 06:57 Dose: 125 mls/hr Meropenem 1 gm/ Sodium (Chloride) 100 mls @ 200 mls/hr IV Q8H [facility] Last Admin: 07/20/18 05:28 Dose: 200 mls/hr Levofloxacin/Dextrose 750 mg/ (Premix) 150 mls @ 100 mls/hr IV ONETIME ONE Stop: 07/18/18 13:59 Last Admin: 07/18/18 15:13 Dose: 100 mls/hr Levofloxacin/Dextrose 500 mg/ (Premix) 100 mls @ 100 mls/hr IV Q48H [facility] Sodium Chloride (Normal Saline) 1,000 mls @ 500 mls/hr IV ASDIRECTED [facility] Stop: 07/19/18 00:00 Last Admin: 07/18/18 22:08 Dose: 500 mls/hr Sodium Chloride (Normal Saline) 1,000 mls @ 75 mls/hr IV ASDIRECTED [facility] Last Admin: 07/20/18 04:19 Dose: 75 mls/hr Levofloxacin/Dextrose 750 mg/ (Premix) 150 mls @ 100 mls/hr IV Q48H [facility] Last Admin: 07/22/18 12:49 Dose: 100 mls/hr Sodium Chloride (Normal Saline) 1,000 mls @ 10 mls/hr IV ASDIRECTED [facility] Lactobacillus Rhamnosus (Culturelle) 1 cap PO BID [facility] Last Admin: 07/22/18 09:51 Dose: 1 cap Lactulose (Chronulac) 20 gm PO BID [facility] Last Admin: 07/16/18 20:39 Dose: 20 gm Lactulose (Chronulac) 20 gm PO QID [facility] Last Admin: 07/18/18 16:16 Dose: Not Given Lactulose (Chronulac) 20 gm .XX QID [facility] Last Admin: 07/18/18 22:05 Dose: 20 gm Lactulose (Chronulac) 20 gm PO QID [facility] Last Admin: 07/20/18 05:27 Dose: 20 gm Lactulose (Chronulac) 20 gm PO BID [facility] Last Admin: 07/22/18 09:52 Dose: 20 gm Methylprednisolone Sodium Succinate (Solu-Medrol) 125 mg IVPUSH ONETIME ONE Stop: 07/22/18 19:04 Last Admin: 07/22/18 19:17 Dose: 125 mg Morphine Sulfate (Morphine) 2 mg IVPUSH Q4H PRN PRN Reason: Pain Last Admin: 07/20/18 16:17 Dose: 2 mg Morphine Sulfate (Morphine) 2 mg IVPUSH Q2H PRN PRN Reason: Pain Last Admin: 07/22/18 09:48 Dose: 2 mg Morphine Sulfate (Morphine 10 Mg/0.5 Ml Oral Syringe) 5 mg PO Q2H PRN PRN Reason: pain/shortness of breath Last Admin: 07/22/18 17:54 Dose: 5 mg Nitroglycerin (Nitrostat) Confirm Administered Dose 0.4 mg .ROUTE .STK-MED ONE Stop: 07/21/18 08:11 Last Admin: 07/21/18 08:43 Dose: Not Given Oxycodone HCl (Oxycodone) 5 mg PO Q4H PRN PRN Reason: Pain Last Admin: 07/16/18 11:56 Dose: 5 mg Pantoprazole Sodium (Protonix) 40 mg PO ACBREAKFAST [facility] Last Admin: 07/22/18 09:51 Dose: 40 mg Potassium Chloride (Klor-Con M20) 20 meq PO DAILY [facility] Last Admin: 07/22/18 09:51 Dose: 20 meq Sertraline HCl (Zoloft) 100 mg PO DAILY [facility] Last Admin: 07/22/18 09:51 Dose: 100 mg Spironolactone (Aldactone) 50 mg PO DAILY [facility] Last Admin: 07/22/18 09:51 Dose: 50 mg
[2018-07-23 11:41] VITALS: BP 0/0
== END 2018-07-23 09:28 | disposition expired | DRG 441 ==
LOC: JP.ED 11:12 → JP.MS 14:16 → JP.ICU 07-18 15:12
PROVIDERS: ADMIT Hospitalist; ATTEND Internal Medicine
PROC: 30233N1 Transfusion of Nonautologous Red Blood Cells into Peripheral Vein, Percutaneous Approach (ICD-10-PCS; 2018-07-16)
PROC: 30233N1 Transfusion of Nonautologous Red Blood Cells into Peripheral Vein, Percutaneous Approach (ICD-10-PCS; 2018-07-17)
PROC: 0W9G3ZX Drainage of Peritoneal Cavity, Percutaneous Approach, Diagnostic (ICD-10-PCS; principal; 2018-07-18)
DX: K72.90 Hepatic failure, unspecified without coma (principal); J69.0 Pneumonitis due to inhalation of food and vomit; J15.9 Unspecified bacterial pneumonia; J80 Acute respiratory distress syndrome; R18.8 Other ascites; N17.9 Acute kidney failure, unspecified; R04.2 Hemoptysis; Z66 Do not resuscitate; K75.4 Autoimmune hepatitis; K74.60 Unspecified cirrhosis of liver; Z91.81 History of falling; R53.1 Weakness; R41.0 Disorientation, unspecified; E11.22 Type 2 diabetes mellitus with diabetic chronic kidney disease; I12.9 Hypertensive chronic kidney disease with stage 1 through stage 4 chronic kidney disease, or unspecified chronic kidney disease; N18.3 Chronic kidney disease, stage 3 (moderate); E66.9 Obesity, unspecified; Z68.35 Body mass index [BMI] 35.0-35.9, adult; R60.9 Edema, unspecified; Z91.14 Patient's other noncompliance with medication regimen; D63.8 Anemia in other chronic diseases classified elsewhere; Z90.49 Acquired absence of other specified parts of digestive tract; Z88.0 Allergy status to penicillin; F32.9 Major depressive disorder, single episode, unspecified; H54.7 Unspecified visual loss; Z79.899 Other long term (current) drug therapy
CPT/HCPCS: 36415; 36430; 51702; 71045; 71250; 74176; 80048; 80053; 81001; 82140; 82962; 83605; 83690; 83735; 85018; 85025; 85027; 85610; 86850; 86900; 86901; 86920; 86922; 87040; 87070; 87086; 87205; 89050; 92610-GN; 93005; 94640; 96374; 97110-GP; 97162-GP; 97530-GP; 99285; 99285-25; A4216; A9270-GY; J1650; J1815; J1940; J1956; J2060; J2185; J2270; J2405; J2930; J3490; J7030; J7620-GY; P9016; P9047